=== PATIENT | female | born 1970 | race Caucasian/White ===

== ENCOUNTER 2024-04-28 15:25 | Emergency (ER) | payer OTHER, SELFPAY ==
[2024-04-28 15:27] VITALS: BP 191/85; PULSE 80; RESP 18; TEMP 36.1; O2SAT 99; BMI 38.9
--- NOTE | 2024-04-28 15:48 | RAD_ITS ---
STUDY: X-RAY - LEFT HAND REASON FOR EXAM: Female, 54 years old. PAIN TECHNIQUE: 3 view(s) of the hand. COMPARISON: None. FINDINGS: Normal radiocarpal articulation. Normal distal radioulnar joint. Normal visualized carpal bones. Normal carpal articulations Mild degenerative changes of the carpometacarpal articulation of the thumb. Normal second through fifth carpometacarpal joints. Normal metacarpi. Normal metacarpophalangeal joint of the thumb. Degenerative changes of the interphalangeal joint of the thumb. Normal proximal and distal phalanges of the thumb. Normal metacarpophalangeal joints of the second through fifth fingers. Normal proximal interphalangeal joints of the second through fifth fingers . Mild degenerative changes of the DIP joints. Normal phalanges of the second through fifth fingers. The soft tissue structures are unremarkable. RAD/Hand Min 3 Views IMPRESSION: Degenerative changes. No acute fracture or dislocation. Electronically Signed: Tylor Reyes MD at 16:12 EST ,
--- NOTE | 2024-04-28 16:27 | ED.RN ---
PT COLLIDED WITH WHEN TRYING TO MOVE THEIR LARGE DOG. INJURY HAPPENED AROUND 0730 THS MORNING. PAIN HAS BEEN GETTING WORSE. SENSATION IN TACT, PT CAN MOVE FINGERS, CAP REFILL <3 SEC
--- NOTE | 2024-04-28 16:29 | EX.ED.UPPERE ---
HPI History of Present Illness Chief Complaint: Upper Extremity Injury [facility] Home Medications ?Medication ?Instructions ?Recorded ?Last Taken ?Type atorvastatin 10 mg tablet 10 mg PO DAILY 04/28/24 Unknown History hydrochlorothiazide 12.5 mg tablet 12.5 mg PO DAILY 04/28/24 Unknown History levothyroxine 125 mcg tablet 125 mcg PO DAILY 04/28/24 04/27/24 History (Euthyrox) Allergy/AdvReac Type Severity Reaction Status Date / Time ciprofloxacin (From Cipro) Allergy Intermediate Swelling Verified 04/28/24 16:30 Penicillins Allergy Mild Hives Verified 04/28/24 16:30 Surgical History (Updated 04/28/24 @ 16:29 by Lo Quevedo) History of tonsillectomy H/O: hysterectomy Social History Smoking Status: Current every day smoker tobacco type: cigarettes EXAM Physical Exam Const Vital Signs: 04/28/24 15:27 Temperature 97 F L Temperature Source Temporal Pulse Rate 80 Respiratory Rate 18 Blood Pressure 191/85 H Blood Pressure Mean 120 Pulse Ox 99 Oxygen Delivery Method Room Air MDM MDM MDM Narrative Medical decision making narrative: HISTORY OF PRESENT ILLNESS: 54-year-old female presents with left hand injury. States she collided hands with her . This happened 3 hours prior to arrival. Notes they were trying to get the dog off the bed. Her reached out and she was at same time and collided hands. REVIEW OF SYSTEMS: Pertinent positives: Left hand pain Pertinent negatives: Numbness tingling or loss of sensation PHYSICAL EXAM: Nursing triage notes reviewed, Vital signs reviewed Extremities: No edema Neuro: Intact 5/5 strength with ok sign (median), intact finger abduction (ulnar) intact wrist extension (radial n). Intact sensation in the radial, ulnar, and median nerve distributions. Skin: No rash or lesions noted, no signs of open fracture, bruising, cellulitis MEDICAL DECISION MAKING: Chief Complaint: Left hand pain External records reviewed: Reviewed prior imaging studies Factors affecting care: none Social determinants of health: none History obtained from others: none Consults: none MDM Narrative: Patient was initially hypertensive with blood pressure 191/85 otherwise afebrile nontoxic-appearing. Left upper extremity neurovascular intact I considered the following differential diagnosis: Left hand fracture, dislocation, contusion ALL IMAGES (IF OBTAINED) HAVE BEEN PERSONALLY REVIEWED AND INTERPRETED BY MYSELF. X-ray of left hand was read reviewed personally myself and showed no acute fracture dislocation. Radiology agrees my interpretation I suspect the patient is having hand contusion. She has no snuffbox tenderness suggest occult scaphoid fracture. No need for splinting. Discussed Tylenol ibuprofen. Discussed PCP follow-up. The patient and/or family, caregivers express understanding. The patient and/or family, caregivers agrees with the plan. Shared decision making: I will have a discussion with the patient and or visitors regarding risk/benefits of further testing or admission. They will be made aware of of the risk/benefits inherent in this decision they will be given the opportunity to voice understanding. Total critical care time today provided was at least 0 [minutes. This excludes separately billable procedures. Critical care time (if documented) is secondary to the patient having high probability of clinically significant/life threatening deterioration in the patient's condition which required my urgent intervention. Impression: 1. Acute hand pain 2. Hand contusion Dispo: Discharge This note was generated with [employer] dictation software. It may contain incorrect words, spelling, and punctuation that were not noted in review of the chart prior to signing. Radiography Diagnostic Testing: Clinical Impression(s) from Imaging Studies Hand X-Ray 04/28/24 15:48 IMPRESSION: Degenerative changes. No acute fracture or dislocation. Electronically Signed: Tylor Reyes MD at 16:12 EST Reading Location ID and State: [address] [place] [address] Tel , Service support , Discharge Plan Triage Chief Complaint: Upper Extremity Injury ED Provider: [place] Dx/Rx/DC Orders Clinical Impression: Contusion of hand Instructions: ED Contusion, Upper Extremity Prescriptions: No Action levothyroxine [Euthyrox] 125 mcg tablet 125 mcg PO DAILY hydrochlorothiazide 12.5 mg tablet 12.5 mg PO DAILY atorvastatin 10 mg tablet 10 mg PO DAILY Primary Care Provider: Care Physician,No Primary Referrals: Clint Sorensen MD [Med Staff - [employer]] - Activity Restrictions/Additional Instructions: Thank you for trusting us with your care today! The x-ray of your left hand was negative for acute bony injury. Please take Tylenol (2 pills, 650 mg), ibuprofen (2 pills, 400 mg) every 6 hours as needed for pain and fever control. Please return to the emergency department if your symptoms change or worsen. Please follow with your primary care physician for further outpatient evaluation and management. Print Language: Turkmen Disposition Disposition: Home, Self Care Discharge Date/Time: 04/28/24 17:01
--- NOTE | 2024-04-28 16:33 | ED.RN ---
THIS NURSE WAS ABLE TO ADD A FEW MEDICATIONS OFF THE PTS MEMORY, BUT SHE WAS UNABLE TO REMEMBER HER MEDS. NO EXTERNAL LIST PRESENT.
[2024-04-28 16:41] VITALS: BP 169/85; PULSE 77; RESP 18; TEMP 36.1; O2SAT 99
== END 2024-04-28 17:01 | disposition home or self-care (01) ==
LOC: ED 16:56
PROVIDERS: Emergency Provider Emergency Medicine; Referring Provider Emergency Medicine; Visit Provider Emergency Medicine
DX: S60.222A Contusion of left hand, initial encounter (principal); F17.210 Nicotine dependence, cigarettes, uncomplicated; Z90.710 Acquired absence of both cervix and uterus; W50.0XXA Accidental hit or strike by another person, initial encounter; Y93.89 Activity, other specified
CPT/HCPCS: 73130; 99282

== ENCOUNTER 2024-10-18 23:20 | Emergency (ER) | payer OTHER, SELFPAY ==
--- NOTE | 2024-10-18 00:20 | RAD_ITS ---
PROCEDURE: CHEST PA AND LATERAL 10/19/2024 REASON FOR EXAM: COUGH TECHNIQUE: CHEST PA AND LATERAL COMPARISON: No FINDINGS: Normal heart size. Well inflated lungs. No consolidation, effusion, or pneumothorax. RAD/Chest PA and Lateral IMPRESSION: No acute chest findings. Reading Location: [place] [id number]
[2024-10-18 23:21] VITALS: BP 215/85; PULSE 81; RESP 18; TEMP 36.7; O2SAT 98; BMI 39.9
[2024-10-19 00:11] VITALS: BP 169/74; PULSE 74; RESP 19; TEMP 36.9; O2SAT 95
[2024-10-19 00:26] LABS: Hematocrit 43.4 % (37-47); Hemoglobin 14.9 g/dL (12.0-15.0); Immature Granulocytes Count 0.030 X10^3/uL (0.0-0.0); Mean Corp Hgb Conc 34.3 g/dL (32-36); Mean Corpuscular Volume 91.6 fL (81-99); Mean Platelet Vol. 9.6 fl (6.2-12.0); NRBC Flagged by Analyzer 0 % (0-5); Platelet Count 248 K/mm3 (150-450); RBC Distribution Width CV 13.6 % (11.6-14.6); RBC Distribution Width SD 45.8 fl (35.1-43.9); Red Blood Count 4.74 M/mm3 (4.2-5.4); White Blood Count 9.1 K/mm3 (4.4-11.0)
[2024-10-19 00:51] LABS: Magnesium 2.1 mg/dL (1.5-2.2); Pro- Brain NATRIURETIC PEPTIDE 60 pg/mL (<=900); Procalcitonin 0.07 ng/mL (<=0.10)
[2024-10-19 00:57] LABS: AST(SGOT) 43 U/L (<=31); Alanine Aminotransfer ALT/SGPT 49 U/L (<=34); Albumin, Serum 4.1 g/dL (3.5-5.0); Alkaline Phosphatase 80 U/L (35-104); Anion Gap 12 (5-15); BUN 18 mg/dL (4-19); BUN/Creat Ratio 19.1 RATIO (10-20); Bilirubin, Direct < 0.08 mg/dL (0.00-0.30); Calcium,Total 9.3 mg/dL (7.6-11.0); Carbon Dioxide 23.4 mmol/L (21.0-32.0); Chloride 102 mmol/L (98-108); Estimated Creatinine Clearance 80.87 ml/min (50-250); Globulin 3.2 g/dL (2.2-4.2); Glucose 109 mg/dL (70-99); Potassium 4.2 mmol/L (3.3-5.1)
--- OUTSIDE RECORDS SUMMARY | 2024-10-19 00:58 | XMS RPT_ITS | CCD ---
Author Organization [facility] Inform ion Partnership [facility] Care Team Providers Care Rn Circulating Name Role Phone Trev Sampson MD Primary Care Provider HELEN MANZANO Attending Unavaila JOSÉ MIGUEL Melendez Attending Unavailable Trev Sampson MD Primary Care Provider Trev Sampson MD Primary Care Provider [phone] Raul Hutchison Unavailable [place] Referring Unavailable [place] Attending Unavailable Care Physician, No Primary Primary Care Unava ilable HORACIO GALEIN G Referring Unavailable SAMPSON, TREV Primary Care Unavailable SAMPSON, TREV Primary Care Unavailable NATHAN LICEA Attending Unavailable SAMPSON, TREV Primary Care Unavailable NESHEIM, ALEXIS G Attending Unavailable SAMPSON, TREV Primary Care Unavailable LINDSEY MALCOLM Attending Unavailable MARGARITA CORBIN Attending Unavailable MUDRASHER BRADNON Referring Unavailable SAMPSON, TREV Primary Care Unavailable SAMPSON TREV Attending Unavailable SAMPSON, TREV Primary Care Unavailable SAMPSON TREV Attending Unavailable SAMPSON, TREV Primary Care Unavailable Allergies Allergy Classification Reported Allergen(s) Allergy Type Date of Onset Reaction(s) Facility Penicillins (antibiotic) (1 source) Penicillins Drug Allergy 08-08-19 [facility] Quinolones (antibiotic) (1 source) Ciprofloxacin Drug Allergy 07-21-19 15 Itching, Swelling [facility] (20 sources) Ciprofloxacin; Translations: [CIPROFLOXACIN] Drug Allergy 07-21-19 15 Itching, Swelling [facility] (20 sources) Penicillins; Translations: [PENICILLINS] Drug Intolerance 08-08-19 [facility] (1 source) Ciprofloxacin Drug Allergy 04-28-19 [facility] (1 source) Penicillins Drug allergy (disorder) 04-28-19 [facility] Medications Current Medications Medication Drug Class(es) Dates Sig (Normalized) Sig (Original) acetaminophen 325 mg oral tablet (4 sources) Start: 09-01-2023 Acetaminophen 325 mg oral tablet acetaminophen 325 mg / butalbital 50 mg / caffeine 40 mg oral tablet (7 sources) Barbiturate, Central Nervous System Stimulant, Methylxanthine Start: 08-01-2023 End: 08-05-2023 take 1 tablet by mouth every eight hours as needed for headache butalbital-acetami nophen-caffeine 50-325-40 MG tablet Take 1 tablet by mouth every 8 hours as needed for headaches for up to 4 days. 12 tablet 0 08/01/2023 08/05/2023 Active [id number] 200 actuat albuterol 0.09 mg/actuat metered dose inhaler (20 sources) beta2-Adrenergic Agonist Start: 10-16-2022 End: 07-30-2023 take 2 puff(s) by inhalation every six hours as needed for wheezing albuterol 108 (90 Base) MCG/ACT inhaler Indications: Non-seasonal allergic rhinitis due to other allergic trigger Inhale 2 Puffs as instructed every 6 hours as needed for wheezing/shortness of breath. With spacer 18 g 3 07/30/2023 Active Start: 06-28-2022 End: 10-16-2022 take 2 puff(s) by inhalation every six hours as needed for wheezing albuterol 108 (90 Base) MCG/ACT inhaler Inhale 2 Puffs as instructed every 6 hours as needed for wheezing/shortness of breath. With spacer 0 06/28/2022 10/16/2022 Discontinued (Reorder) atorvastatin 40 mg oral tablet (20 sources) HMG-CoA Reductase Inhibitor Start: 08-01-2023 End: 08-04-2024 take 1 tablet by mouth once daily atorvastatin (Lipitor) 40 MG tablet Indications: Mixed hyperlipidemia TAKE 1 TABLET BY MOUTH DAILY 90 tablet 08/04/2024 Active Start: 07-20-2022 End: 06-28-2024 take 1 tablet by mouth once daily atorvastatin (Lipitor) 20 MG tablet Indications: Mixed hyperlipidemia Take 1 tablet (20 mg) by mouth daily. 90 tablet 0 06/29/2023 08/01/2023 Discontinued (Reorder) cephalexin 500 mg oral capsule (3 sources) Cephalosporin Antibacterial Start: 09-15-2024 End: 09-22-2024 take 1 capsule by mouth four times daily cephalexin (Keflex) 500 MG capsule Take 1 capsule (500 mg) by mouth 4 times daily for 7 days. 28 capsule 09/15/2024 09/22/2024 Active Start: 03-03-2024 End: 03-08-2024 take 1 capsule by mouth twice daily cephalexin (Keflex) 500 MG capsule Indications: Cellulitis of right hand Take 1 capsule (500 mg) by mouth 2 times daily for 5 days. 10 capsule 03/03/2024 03/08/2024 Active fluticasone propionate 0.05 mg/actuat metered dose nasal spray (20 sources) Corticosteroid Start: 10-16-2022 End: 10-16-2023 take 2 spray(s) nasal route once daily fluticasone (Flonase) 50 MCG/ACT nasal spray Indications: Allergy, initial encounter Administer 2 sprays into each nostril daily. Shake gently. Before first use, prime pump. After use, clean tip and replace cap. 16 g 11 10/16/2022 Active hydroCHLOROthiazide 12.5 mg oral tablet (15 sources) Thiazide Diuretic Start: 11-16-2023 End: 11-15-2024 take 1 tablet by mouth once daily hydroCHLOROthiazide 12.5 MG tablet Take 1 tablet (12.5 mg) by mouth daily. 90 tablet 3 11/16/2023 11/15/2024 Active levothyroxine sodium 0.1 mg oral tablet (20 sources) l-Thyroxine Start: 05-30-2023 End: 09-02-2023 take 1 tablet by mouth once daily levothyroxine (Synthroid, Levoxyl) 100 MCG tablet Indications: Acquired hypothyroidism TAKE 1 TABLET BY MOUTH DAILY 90 tablet 1 09/02/2023 Active Start: 11-03-2022 End: 04-18-2023 take 1 tablet by mouth once daily levothyroxine (Synthroid, Levoxyl) 100 MCG tablet Indications: Acquired hypothyroidism Take 1 tablet (100 mcg) by mouth daily. 90 tablet 0 01/18/2023 04/18/2023 Active Start: 09-07-2022 End: 12-06-2022 take 1 tablet by mouth once daily levothyroxine (Synthroid, Levoxyl) 75 MCG tablet Indications: Acquired hypothyroidism Take 1 tablet (75 mcg) by mouth daily. 90 tablet 0 09/07/2022 12/06/2022 Active Start: 07-20-2022 End: 09-07-2022 take 1 tablet by mouth once daily levothyroxine (Synthroid, Levoxyl) 50 MCG tablet Indications: Acquired hypothyroidism Take 1 tablet (50 mcg) by mouth daily. 90 tablet 0 07/20/2022 09/07/2022 Discontinued (Reorder) loratadine 10 mg oral tablet (2 sources) Start: 09-15-2024 End: 10-05-2024 take 1 tablet by mouth once daily loratadine (Claritin) 10 MG tablet Take 1 tablet (10 mg) by mouth daily for 20 days. 20 tablet 09/15/2024 10/05/2024 Active meclizine hydrochloride 25 mg oral tablet (20 sources) Antiemetic Start: 10-09-2022 End: 03-03-2024 take 1 tablet by mouth twice daily as needed for dizziness meclizine (Antivert) 25 MG tablet Indications: Vertigo TAKE 1 TABLET BY MOUTH TWICE DAILY NEEDED for dizziness/vertigo 30 tablet 3 03/03/2024 Active 24 hr metFORMIN hydrochloride 500 mg extended release oral tablet (20 sources) Biguanide Start: 08-01-2023 End: 08-04-2024 take 1 tablet by mouth once daily at breakfast metFORMIN XR (Glucophage-XR) 500 MG 24 hr tablet Indications: Impaired fasting glucose TAKE 1 TABLET BY MOUTH DAILY WITH BREAKFAST DO NOT CRUSH, CHEW, OR SPLIT 90 tablet 08/04/2024 Active methocarbamol 500 mg oral tablet (7 sources) Muscle Relaxant Start: 03-24-2024 End: 04-03-2024 take 1 tablet by mouth twice daily methocarbamol (Robaxin) 500 MG tablet Take 1 tablet (500 mg) by mouth 2 times daily for 10 days. 20 tablet 03/24/2024 Active metoprolol tartrate 50 mg oral tablet (19 sources) beta-Adrenergic Patricia Start: 09-21-2023 End: 09-20-2024 take 60-70 tablets by mouth every hour, then take 1 tablet by mouth every hour metoprolol tartrate (Lopressor) 50 MG tablet Indications: Atypical chest pain , Shortness of breath Take 2 tablets (100 mg) by mouth See administration instructions for 2 doses. Check your HR the evening before your test and if HR >70 take a 2 tablets, If HR is between 60-70 then take 1 tab, If HR is 4 tablet 09/21/2023 09/20/2024 Active montelukast 10 mg oral tablet (20 sources) Leukotriene Receptor Antagonist Start: 10-16-2022 End: 08-04-2024 take 1 tablet by mouth once daily montelukast (Singulair) 10 MG tablet Indications: Non-seasonal allergic rhinitis due to other allergic trigger , Mild intermittent asthma without complication TAKE 1 TABLET BY MOUTH EVERY night 90 tablet 08/04/2024 Active Completed/Discontinued Medications Medication Drug Class(es) Dates Sig (Normalized) Sig (Original) hydroCHLOROthiazide 12.5 mg / lisinopril 10 mg oral tablet (20 sources) Thiazide Diuretic, Angiotensin Converting Enzyme Inhibitor Start: 3 End: 5 take 2 tablets by mouth in the morning lisinopril-hydroC HLOROthiazide 10-12.5 MG tablet Indications: Primary hypertension Take 2 tablets by mouth in the morning. 180 tablet 3 07/30/2023 11/16/2023 Discontinued 1 ml ketorolac tromethamine 15 mg/ml cartridge (2 sources) Nonsteroidal Anti-inflammatory Drug, Cyclooxygenase Inhibitor Start: 4 End: 4 inject 15 mg by intramuscular injection once 15 mg, IntraMUSCular, Once, On Wed03/24/24 at 0050, For 1 dose meloxicam 7.5 mg oral tablet (2 sources) Nonsteroidal Anti-inflammatory Drug Start: 5 End: 5 take 7.5 mg by mouth once 7.5 mg, Oral, Once, On Wed09/15/24 at 1205, For 1 dose metroNIDAZOLE 500 mg oral tablet (5 sources) Nitroimidazole Antimicrobial Start: 3 End: 4 take 1 tablet by mouth three times daily metroNIDAZOLE (Flagyl) 500 MG tablet TAKE 1 TABLET BY MOUTH THREE TIMES DAILY FOR 7 DAYS 0 10/09/2022 07/30/2023 Discontinued (Med list cleanup) 2 ml ondansetron 2 mg/ml injection (2 sources) Serotonin-3 Receptor Antagonist Start: 4 End: 4 ondansetron (Zofran) injection 4 mg predniSONE 20 mg oral tablet (2 sources) Start: 5 End: 5 take 2 tablets by mouth once daily predniSONE (Deltasone) 20 MG tablet Take 2 tablets (40 mg) by mouth daily for 7 days. 14 tablet 09/15/2024 09/15/2024 Discontinued 50 ml sodium chloride 9 mg/ml injection (2 sources) Start: 4 End: 4 sodium chloride 0.9 % bolus 500 mL sulfamethoxazole 800 mg / trimethoprim 160 mg oral tablet (5 sources) Dihydrofolate Reductase Inhibitor Antibacterial, Sulfonamide Antimicrobial Start: 3 End: 4 take 1 tablet by mouth twice daily sulfamethoxazole- trimethoprim (Bactrim DS) 800-160 MG tablet Take 1 tablet by mouth 2 times daily. 0 10/09/2022 07/30/2023 Discontinued (Med list cleanup) Problems Active Problems Problem Classification Problem Date Documented Da te Episodic/Chronic Allergic reactions (1 source) Allergic condition; Translations: [Allergy, unspecified, initial encounter] 10-16-2022 Episodic Asthma (20 sources) Mild intermittent asthma; Translations: [Mild intermittent asthma, uncomplicated] Onset: 09-11-2015 10-16-2022 Chronic Complications of surgical procedures or medical care (20 sources) Postablative hypothyroidism; Translations: [Postprocedural hypothyroidism] Onset: 06-28-2015 10-16-2022 Chronic Diabetes mellitus without complication (2 sources) Impaired fasting glycemia; Translations: [Impaired fasting glucose] 08-01-2023 Episodic Disorders of lipid metabolism (20 sources) Hyperlipidemia; Translations: [Hyperlipidemia, unspecified] Onset: 06-28-2015 10-16-2022 Chronic Essential hypertension (20 sources) Essential hypertension; Translations: [Essential (primary) hypertension] Onset: 06-28-2015 Chronic Headache; including migraine (2 sources) Tension-type headache; Translations: [Tension-type headache, unspecified, not intractable] 08-01-2023 Chronic Malaise and fatigue (2 sources) Fatigue; Translations: [Other fatigue] 08-01-2023 Episodic Nutritional deficiencies (20 sources) Vitamin D deficiency; Translations: [Vitamin D deficiency, unspecified] Onset: 06-28-2015 10-16-2022 Chronic Other connective tissue disease (4 sources) Swelling of lower limb; Translations: [Other specified soft tissue disorders] 03-24-2024 Episodic Other gastrointestinal disorders (1 source) Abdominal bloating; Translations: [Abdominal distension (gaseous)] 07-30-2023 Episodic Other injuries and conditions due to external causes (8 sources) Unspecified injury of head, initial encounter; Translations: [Unspecified injury of head, initial encounter] Onset: 09-01-2023 Episodic Other non-traumatic joint disorders (2 sources) Pain in elbow; Translations: [Pain in right elbow] 12-17-2023 Episodic Other nutritional; endocrine; and metabolic disorders (20 sources) Obesity; Translations: [Other obesity due to excess calories] Onset: 06-28-2015 Chronic Other nutritional; endocrine; and metabolic disorders (1 source) Obesity caused by energy imbalance; Translations: [Other obesity due to excess calories] 07-30-2023 Chronic Other screening for suspected conditions (not mental disorders or infectious disease) (5 sources) Patient encounter status; Translations: [Encounter for screening for diabetes mellitus] Episodic Other upper respiratory disease (2 sources) Allergic rhinitis; Translations: [Other allergic rhinitis] 07-30-2023 Chronic Skin and subcutaneous tissue infections (7 sources) Cellulitis of right hand; Translations: [Cellulitis of right upper limb] Onset: 03-03-2024 03-03-2024 Episodic Spondylosis; intervertebral disc disorders; other back problems (2 sources) Chronic low back pain; Translations: [Lumbago with sciatica, right side] 07-30-2023 Episodic Substance-related disorders (6 sources) Nicotine dependence; Translations: [Nicotine dependence, cigarettes, uncomplicated] Onset: 03-03-2024 Chronic Superficial injury; contusion (1 source) Contusion of left hand, initial encounter; Translations: [Contusion of left hand, initial encounter] Onset: 05-19-2024 Episodic Thyroid disorders (6 sources) Acquired hypothyroidism; Translations: [Hypothyroidism, unspecified] Chronic Unclassified (1 source) right ear pain and right jaw popping Onset: 10-09-2022 Unclassified (1 source) Acute left-sided low back pain without sciatica; Translations: [Acute left-sided low back pain without sciatica] Onset: 12-26-2021 Past or Other Problems Problem Classification Problem Date Documented Date Episodic/Chronic Abdominal pain (1 source) Left lower quadrant pain; Translations: [LLQ abdominal pain] Onset: 12-26-2021 Episodic Conditions associated with dizziness or vertigo (4 sources) Vertigo; Translations: [Dizziness and giddiness] Onset: 03-03-2024 07-30-2023 Episodic Nonspecific chest pain (7 sources) Chest pain; Translations: [Chest pain, unspecified] Onset: 09-21-2023 07-30-2023 Episodic Other connective tissue disease (2 sources) Other specified soft tissue disorders; Translations: [Other specified soft tissue disorders] Onset: 03-23-2024 Episodic Other diseases of veins and lymphatics (20 sources) Venous insufficiency of leg; Translations: [Venous insufficiency (chronic) (peripheral)] Onset: 07-14-2022 Episodic Other injuries and conditions due to external causes (3 sources) Blister; Translations: [Other injury of unspecified body region, initial encounter] Onset: 11-16-2023 11-18-2023 Episodic Other lower respiratory disease (3 sources) Snoring; Translations: [Snoring] Onset: 09-21-2023 09-21-2023 Episodic Other lower respiratory disease (3 sources) Dyspnea; Translations: [Shortness of breath] Onset: 09-21-2023 09-21-2023 Episodic Other lower respiratory disease (1 source) Snoring; Translations: [Snoring] Onset: 09-21-2023 Episodic Other lower respiratory disease (1 source) Shortness of breath; Translations: [Shortness of breath] Onset: 09-21-2023 Episodic Other non-traumatic joint disorders (2 sources) Pain in right elbow; Translations: [Pain in right elbow] Onset: 12-17-2023 Episodic Other skin disorders (20 sources) Vitiligo; Translations: [Vitiligo] Onset: 10-30-2016 10-16-2022 Episodic Residual codes; unclassified (1 source) Edema, unspecified; Translations: [Peripheral edema] Onset: 06-27-2022 Episodic Results Test Name Value Interpretation Reference Range Facility ED Nursing Noteon 09-15-2024 ED Nursing Note Pt ambulatory to [place] [id number] with c/o bilateral lower leg redness, warmth and itching x 2 weeks. Pt states has been developing small blisters developing but not weeping and has concern of cellulitis. Reports increase pain with palpation to area. Normal [facility] ED Provider Noteon ED Provider Note EMERGENCY DEPARTMENT ENCOUNTER Pt Name: Kaylynn Durán Birthdate 1970 Date of evaluation: 09/15/2024 CHIEF COMPLAINT Chief Complaint Patient presents with Skin Problem HISTORY OF PRESENT ILLNESS HPI Kaylynn Durán is a 54 y.o. female who presents to the emergency department with skin redness in both legs, right more than left swelling both legs. Severe itching. Blistering of the right leg. Symptoms of redness and itching started 2 weeks ago. Has chronic swelling in both legs. REVIEW OF SYSTEMS Review of Systems Problem List[1] CURRENT MEDICATIONS Previous Medications ALBUTEROL 108 (90 BASE) MCG/ACT INHALER Inhale 2 Puffs as instructed every 6 hours as needed for wheezing/shortness of breath. With spacer ATORVASTATIN (LIPITOR) 40 MG TABLET TAKE 1 TABLET BY MOUTH DAILY FLUTICASONE (FLONASE) 50 MCG/ACT NASAL SPRAY Administer 2 sprays into each nostril daily. Shake gently. Before first use, prime pump. After use, clean tip and replace cap. HYDROCHLOROTHIAZIDE 12.5 MG TABLET Take 1 tablet (12.5 mg) by mouth daily. LEVOTHYROXINE (SYNTHROID, LEVOXYL) 100 MCG TABLET TAKE 1 TABLET BY MOUTH DAILY MECLIZINE (ANTIVERT) 25 MG TABLET TAKE 1 TABLET BY MOUTH TWICE DAILY NEEDED for dizziness/vertigo METFORMIN XR (GLUCOPHAGE-XR) 500 MG 24 HR TABLET TAKE 1 TABLET BY MOUTH DAILY WITH BREAKFAST DO NOT CRUSH, CHEW, OR SPLIT METHOCARBAMOL (ROBAXIN) 500 MG TABLET Take 1 tablet (500 mg) by mouth 2 times daily for 10 days. METOPROLOL TARTRATE (LOPRESSOR) 50 MG TABLET Take 2 tablets (100 mg) by mouth See administration instructions for 2 doses. Check your HR the evening before your test and if HR >70 take a 2 tablets, If HR is between 60-70 then take 1 tab, If HR is <60 do not take any. Repeat 2 hours before your test. MONTELUKAST (SINGULAIR) 10 MG TABLET TAKE 1 TABLET BY MOUTH EVERY night ALLERGIES Ciprofloxacin and Penicillins SOCIAL HISTORY Social History[2] PHYSICAL EXAM Vitals: 09/15/24 1151 09/15/24 1152 BP: (!) 187/95 BP Location: Right arm Patient Position: Lying Pulse: 86 69 Resp: 16 16 Temp: 36.2 ?C (97.1 ?F) TempSrc: Oral SpO2: 99% 100% Weight: 95.3 kg (210 lb) Height: 1.575 m (5' 2) Physical Exam Vitals and nursing note reviewed. Constitutional: Appearance: She is obese. She is not toxic-appearing. Cardiovascular: Rate and Rhythm: Normal rate and regular rhythm. Pulses: Dorsalis pedis pulses are 2+ on the right side and 2+ on the left side. Posterior tibial pulses are 2+ on the right side and 2+ on the left side. Musculoskeletal: Right lower leg: Swelling and tenderness present. Left lower leg: Swelling and tenderness present. Right ankle: Swelling present. Left ankle: Swelling present. Right foot: No tenderness. Left foot: No tenderness. Comments: Soft compartments, no crepitus. Skin: General: Skin is warm. Capillary Refill: Capillary refill takes less than 2 seconds. Coloration: Skin is not cyanotic. Findings: Erythema, lesion and rash present. No abscess. Rash is vesicular (right laterl leg.). Neurological: Mental Status: She is alert. Sensory: Sensation is intact. Motor: Motor function is intact. Gait: Gait is intact. Deep Tendon Reflexes: Reflexes are normal and symmetric. Psychiatric: Behavior: Behavior normal. Thought Content: Thought content normal. SCREENINGS Syed Coma Scale Best Eye Response: Spontaneous Best Verbal Response: Oriented Best Motor Response: Follows commands Syed Coma Scale Score: 15 Medical decision making DIAGNOSTIC RESULTS Procedures/EKG: Physician EKG interpretation can be found in [facility] if done Radiologist results reviewed: No orders to display LABS: Labs Reviewed - No data to display RADIOLOGY : Medications ordered: Medications meloxicam (Mobic) tablet 7.5 mg (7.5 mg Oral Given 09/15/24 1206) ED Course as of 09/15/24 1216 WedSep 15, 2024 121 Prior medical records were reviewed: oarrs reviewed no recent controlled substance prescription [NM] ED Course User Index [NM] Nathan Licea MD Diagnoses as of 09/15/24 1216 Cellulitis of right lower extremity Hypertension, unspecified type * No order type specified * Our workup consisted of ordering/reviewing: No orders of the defined types were placed in this encounter. MDM: 54 y.o. presented with leg redness and swelling. The differential diagnosis considered: Cellulitis, rash,. Patient's care was impacted by comorbidity of Hypertension and she is not able to take [id number] high-dose anti-inflammatory to help with the inflammation and swelling. Will trial low-dose. Diagnostic tests considered but not performed: Vascular ultrasound lower extremity venous duplex. Clinically not DVT. There is no tenderness along the deep venous system and swelling is chronic. Mainly skin symptoms Consideration for escalation of care with: meds ancef IV, not septic, hence not ordered . (more content not included)... Normal [facility] 05-29-2024 36 See Proxiblet message [facility] 05-23-2024 36 She is due for repea t that is in the computer ordered by Elly. Normal [facility] Emergency Department Summary on 04-28-2024 Emergency Department Summary [facility] Medical Records Department [address] [place] [id number] Emergency Department Summary 04/28/24 MR#: [id number] Acct: [id number] Name: KAYLYNN DURÁN Rep #: [id number] : 1970 54 From: [place] DO PCP: Care Physician,No Primary Status:DEP ER Location: ED HPI History of Present Illness Chief Complaint: Upper Extremity Injury PFSH PFSH Home Medications ???Medication ???Instructions ???Recorded ???Last Taken ???Type atorvastatin 10 mg tablet 10 mg PO DAILY 04/28/24 Unknown History hydrochlorothiazide 12.5 mg tablet 12.5 mg PO DAILY 04/28/24 Unknown History levothyroxine 125 mcg tablet 125 mcg PO DAILY 04/28/24 04/27/24 History (Euthyrox) Allergy/AdvReac Type Severity Reaction Status Date / Time ciprofloxacin (From Cipro) Allergy Intermediate Swelling Verified 04/28/24 16:30 Penicillins Allergy Mild Hives Verified 04/28/24 16:30 Surgical History (Updated 04/28/24 @ 16:29 by Lo Quevedo) History of tonsillectomy H/O: hysterectomy Social History Smoking Status: Current every day smoker tobacco type: cigarettes EXAM Physical Exam Const Vital Signs: 04/28/24 15:27 Temperature 97 F L Temperature Source Temporal Pulse Rate 80 Respiratory Rate 18 Blood Pressure 191/85 H Blood Pressure Mean 120 Pulse Ox 99 Oxygen Delivery Method Room Air MDM MDM MDM Narrative Medical decision making narrative: HISTORY OF PRESENT ILLNESS: 54-year-old female presents with left hand injury. States she collided hands with her . This happened 3 hours prior to arrival. Notes they were trying to get the dog off the bed. Her reached out and she was at same time and collided hands. REVIEW OF SYSTEMS: Pertinent positives: Left hand pain Pertinent negatives: Numbness tingling or loss of sensation PHYSICAL EXAM: Nursing triage notes reviewed, Vital signs reviewed Extremities: No edema Neuro: Intact 5/5 strength with ok sign (median), intact finger abduction (ulnar) intact wrist extension (radial n). Intact sensation in the radial, ulnar, and median nerve distributions. Skin: No rash or lesions noted, no signs of open fracture, bruising, cellulitis MEDICAL DECISION MAKING: Chief Complaint: Left hand pain External records reviewed: Reviewed prior imaging studies Factors affecting care: none Social determinants of health: none History obtained from others: none Consults: none [facility] Narrative: Patient was initially hypertensive with blood pressure 191/85 otherwise afebrile nontoxic-appearing. Left upper extremity neurovascular intact I considered the following differential diagnosis: Left hand fracture, dislocation, contusion ALL IMAGES (IF OBTAINED) HAVE BEEN PERSONALLY REVIEWED AND INTERPRETED BY MYSELF. X-ray of left hand was read reviewed personally myself and showed no acute fracture dislocation. Radiology agrees my interpretation I suspect the patient is having hand contusion. She has no snuffbox tenderness suggest occult scaphoid fracture. No need for splinting. Discussed Tylenol ibuprofen. Discussed PCP follow-up. The patient and/or family, caregivers express understanding. The patient and/or family, caregivers agrees with the plan. Shared decision making: I will have a discussion with the patient and or visitors regarding risk/benefits of further testing or admission. They will be made aware of of the risk/benefits inherent in this decision they will be given the opportunity to voice understanding. Total critical care time today provided was at least 0 [minutes. This excludes separately billable procedures. Critical care time (if documented) is secondary to the patient having high probability of clinically significant/life threatening deterioration in the patient's condition which required my urgent intervention. Impression: 1. Acute hand pain 2. Hand contusion Dispo: Discharge This note was generated with Tricent[employer] dictation software. It may contain incorrect words, spelling, and punctuation that were not noted in review of the chart prior to signing. Radiography Diagnostic Testing: Clinical Impression(s) from Imaging Studies Hand X-Ray 04/28/24 15:48 IMPRESSION: Degenerative changes. No acute fracture or dislocation. Electronically Signed: Tylor Reyes MD at 16:12 EST Reading Location ID and State: [facility] / [place] Tel , Service support , Discharge Plan Triage Chief Complaint: Upper Extremity Injury ED Provider: [place] Dx/Rx/DC Orders Clinical Impression: Contusion of hand Instructions: ED Contusion, Upper Extremity Prescriptions: No Action levothyroxine [Euthyrox] 125 mcg tablet 125 mcg PO DAILY hydrochl (more content not included)... Normal [facility] Hand Min 3 Viewson 5 Hand Min 3 Views [facility] Imaging Services [address], [place] [id number] Hand Min 3 Views MR#: [id number] Acct: [id number] Name: KAYLYNN DURÁN Rep #: [id number] : 1970 F 54 From: Tylor Ryees MD PCP: Care Physician,No Primary Status: PRE ER Study: Hand Min 3 Views Date of Exam: 04/28/24 Exam# [id number] Ordering Dr: Franky,Garth PCheryl [id number] STUDY: X-RAY - LEFT HAND REASON FOR EXAM: Female, 54 years old. PAIN TECHNIQUE: 3 view(s) of the hand. COMPARISON: None. FINDINGS: Normal radiocarpal articulation. Normal distal radioulnar joint. Normal visualized carpal bones. Normal carpal articulations Mild degenerative changes of the carpometacarpal articulation of the thumb. Normal second through fifth carpometacarpal joints. Normal metacarpi. Normal metacarpophalangeal joint of the thumb. Degenerative changes of the interphalangeal joint of the thumb. Normal proximal and distal phalanges of the thumb. Normal metacarpophalangeal joints of the second through fifth fingers. Normal proximal interphalangeal joints of the second through fifth fingers . Mild degenerative changes of the DIP joints. Normal phalanges of the second through fifth fingers. The soft tissue structures are unremarkable. RAD/Hand Min 3 Views IMPRESSION: Degenerative changes. No acute fracture or dislocation. Electronically Signed: Tylor Reyes MD at 16:12 EST Reading Location ID and State: [address] [place] [address] Tel , Service support , CC: ED PHYSICIAN PROVIDER; No Primary Care Physician Digital Press Operator: Signed [facility] 36on 04-01-2024 36 We have been unable to reach your patient to schedule their testing. Test Name: CT Lung Screening 1st Attempt: 03/31/2024 2nd Attempt: 04/01/2024 [facility] Progress Noteon 03-27-2024 Progress Note Chart reviewed of ED follow up Seen in [facility] ED on 03/23/24 Reason: leg swelling Discharge instructions: In the medical field, there is always a level of diagnostic uncertainty, even if this uncertainty is low. For this reason, it is important to immediately return to the emergency department if you have any new symptoms, worsening symptoms, change of symptoms, or if you have any other concerns. We would be happy to re-evaluate you. Otherwise, please take your medications as prescribed and follow-up as recommended. Unable to reach by phone. Patient is active on [employer]. ED message sent via [employer] [facility] ED Nursing Noteon 03-23-2024 ED Nursing Note Pt ambulatory to [facility] with complaints of left leg swelling, pain and numbness and tingling that has been ongoing since Wednesday. Pt describes the tingling as little bolts of electricity going through.Pt sts that she has some issues with swelling and is on a medication that is supposed to help with swelling. Denies injury to the leg. Normal [facility] ED Provider Noteon ED Provider Note EMERGENCY DEPARTMENT ENCOUNTER Pt Name: Beverly Durán Birthdate 1970 Date of evaluation: 03/23/2024 ED Provider: Lindsey Malcolm DO CHIEF COMPLAINT Chief Complaint Patient presents with Leg Swelling Left leg, pt sts that she normally has issues with swelling, sts it started Wednesday and has continued. Pt complains of numbness and pain in the leg. Numbness Left leg, ongoing since Wednesday. HISTORY OF PRESENT ILLNESS (Location/Symptom, Timing/Onset, Context/Setting, Quality, Duration, Modifying Factors, Severity) Note limiting factors. I wore appropriate PPE for the entirety of this encounter. HPI Beverly Durán is a 54 y.o. who presents to the emergency department with chief complaint of left lower leg edema. Patient reports that 20 years ago she had a total hysterectomy complicated with abscess formations. Since then she has been having chronic lower leg edema usually left worse than right. She reports for the last 5 days her left lower extremity has been more swollen and more full. She denies any recent travel, long plane or car rides. Denies any recent surgery. Denies any other symptoms of chest pain, shortness of breath, David pain, nausea, vomiting, diarrhea, constipation, urinary complaints. No known sick contacts. No fall. Nursing Notes were reviewed. REVIEW OF SYSTEMS Review of Systems Pertinent positives and negatives as per HPI. PAST MEDICAL HISTORY Past Medical History: Diagnosis Date Edema swelling in legs High blood pressure High cholesterol Thyroid condition underactive SURGICAL HISTORY Past Surgical History: Procedure Laterality Date GALLBLADDER SURGERY HYSTERECTOMY TONSILLECTOMY CURRENT MEDICATIONS Discharge Medication List as of 03/24/2024 12:52 AM CONTINUE these medications which have NOT CHANGED Details albuterol 108 (90 Base) MCG/ACT inhaler Inhale 2 Puffs as instructed every 6 hours as needed for wheezing/shortness of breath. With spacer, Normal atorvastatin (Lipitor) 40 MG tablet Take 1 tablet (40 mg) by mouth daily., Starting Wed08/01/2023, Until Wed07/31/2024, Normal fluticasone (Flonase) 50 MCG/ACT nasal spray Administer 2 sprays into each nostril daily. Shake gently. Before first use, prime pump. After use, clean tip and replace cap., Starting Wed10/16/2022, Until Wed03/03/2024, Normal hydroCHLOROthiazide 12.5 MG tablet Take 1 tablet (12.5 mg) by mouth daily., Starting Wed11/16/2023, Until Wed11/15/2024, Normal levothyroxine (Synthroid, Levoxyl) 100 MCG tablet TAKE 1 TABLET BY MOUTH DAILY, Starting Beatriz 09/02/2023, Normal meclizine (Antivert) 25 MG tablet TAKE 1 TABLET BY MOUTH TWICE DAILY NEEDED for dizziness/vertigo, Normal metFORMIN XR (Glucophage-XR) 500 MG 24 hr tablet Take 1 tablet (500 mg) by mouth daily (with breakfast). Do not crush, chew, or split., Starting Wed08/01/2023, Until Wed07/31/2024, Normal metoprolol tartrate (Lopressor) 50 MG tablet Take 2 tablets (100 mg) by mouth See administration instructions for 2 doses. Check your HR the evening before your test and if HR >70 take a 2 tablets, If HR is between 60-70 then take 1 tab, If HR is <60 do not take any. Repeat 2 hours before your test ., Starting Wed09/21/2023, Until Wed09/20/2024 at 2359, Normal montelukast (Singulair) 10 MG tablet Take 1 tablet (10 mg) by mouth Nightly., Starting Wed07/30/2023, Until Wed07/29/2024, Normal ALLERGIES Ciprofloxacin and Penicillins FAMILY HISTORY Family History Problem Relation Name Age of Onset Cancer Mother Other cancer Mother heart issues Heart attack Mother Flynn's palsy Mother had once No Known Problems Father Alopecia Daughter No Known Problems Daughter No Known Problems Son No Known Problems Son SOCIAL HISTORY Social History Socioeconomic History Marital status: Number of children: 4 Tobacco Use Smoking status: Every Day Current packs/day: 1.00 Average packs/day: 1 pack/day for 38.0 years (38.0 ttl pk-yrs) Types: Cigarettes Passive exposure: Current Smokeless tobacco: Never Vaping Use Vaping status: Never Used Substance and Sexual Activity Alcohol use: Not Currently Comment: does not drink Drug use: Never Sexual activity: Yes Partners: Male SCREENINGS PHYSICAL EXAM ED Triage Vitals [03/23/24 2355] Temp Heart Rate Resp BP 36.8 ?C (98.2 ?F) 76 20 (!) 161/70 SpO2 Temp Source Heart Rate Source Patient Position 95 % Oral Monitor Sitting BP Location FiO2 (%) Right arm -- General: A&O x 3, well appearing, no acute distress Head: NC/AT Eyes: Atraumatic, EOMI, clear conjunctival, PERRLA Nose: Atraumatic, no skin changes Throat: Moist mucus membranes, uvula midline, oropharynx clear Neck: atraumatic, Supple, no lymphadenopathy, no stiffness or restricted ROM Heart: Normal rate and regular rhythm, no m/r/g Lungs: CTA bilaterally, no crackles or wheezes, no respiratory distress Abd: Soft, nontender, nondistended, no g (more content not included)... Normal [facility] 37on 03-03-2024 37 Screening Colonoscop y (Screening/surveillance program) [phone] Normal [facility] Office Visiton 03-03-2024 Follow-up visit [id number] Shannan Durán cornelio 1970 F Date Provider Department Center 03/03/2024 [id number], KORY [facility] Family History Problem Relation Age of Onset Cancer Mother Other cancer Mother Comments: heart issues Heart attack Mother Flynn's palsy Mother Comments: had once No Known Problems Father Alopecia Daughter No Known Problems Daughter No Known Problems Son No Known Problems Son Family Status - Relation Status Age at Mother Alive Father Daughter Alive Daughter Alive Son Alive Son Alive Maternal Grandmother Maternal Grandfather Paternal Grandmother Paternal Grandfather Level of Service:82097 [place] OFFICE/OUTPATIENT ESTABLISHED MOD MDM 30 MIN Reason for Visit and Comments: Follow-up [166573] Med Refill [234967] Normal [facility] Progress Noteon 03-03-2024 Progress Note [facility] - [address] [facility] [address] Visit Type: Follow Up Appointment PCP: Trev Sampson MD Reason for Visit: Follow-up and Med Refill Assessment and Plan Beverly was seen today for follow-up and med refill. Diagnoses and all orders for this visit: Primary hypertension Vertigo - meclizine (Antivert) 25 MG tablet; TAKE 1 TABLET BY MOUTH TWICE DAILY NEEDED for dizziness/vertigo Mixed hyperlipidemia Cellulitis of right hand - cephalexin (Keflex) 500 MG capsule; Take 1 capsule (500 mg) by mouth 2 times daily for 5 days. Cigarette smoker - CT lung screening low dose; Future Other orders - Flu vaccine (FLUZONE/FLULAVAL/FLUAR IX), trivalent, split virus (VFC product) Will give Keflex as she has tolerated this in the past for her cellulitis. Meclizine refilled no change to her antihypertensive medications. CT lung screening ordered. No follow-ups on file. Subjective HPI Kaylynn Durán presented to the office for follow-up. Of note she has hypertension which is well-controlled on metoprolol tartrate and hydrochlorothiazide. She also notes that she has some intermittent vertigo though and has been under reasonable control. Would like a refill on meclizine. She did have a wound that appeared on her right hand that has been red and slow to heal. She questions if anything needs done. Review of Systems As noted in HPI The following portions of the chart were reviewed this encounter and updated as appropriate: Current Outpatient Medications: albuterol 108 (90 Base) MCG/ACT inhaler, Inhale 2 Puffs as instructed every 6 hours as needed for wheezing/shortness of breath. With spacer, Disp: 18 g, Rfl: 3 atorvastatin (Lipitor) 40 MG tablet, Take 1 tablet (40 mg) by mouth daily., Disp: 90 tablet, Rfl: 3 fluticasone (Flonase) 50 MCG/ACT nasal spray, Administer 2 sprays into each nostril daily. Shake gently. Before first use, prime pump. After use, clean tip and replace cap., Disp: 16 g, Rfl: 11 hydroCHLOROthiazide 12.5 MG tablet, Take 1 tablet (12.5 mg) by mouth daily., Disp: 90 tablet, Rfl: 3 levothyroxine (Synthroid, Levoxyl) 100 MCG tablet, TAKE 1 TABLET BY MOUTH DAILY, Disp: 90 tablet, Rfl: 1 metFORMIN XR (Glucophage-XR) 500 MG 24 hr tablet, Take 1 tablet (500 mg) by mouth daily (with breakfast). Do not crush, chew, or split., Disp: 90 tablet, Rfl: 3 metoprolol tartrate (Lopressor) 50 MG tablet, Take 2 tablets (100 mg) by mouth See administration instructions for 2 doses. Check your HR the evening before your test and if HR >70 take a 2 tablets, If HR is between 60-70 then take 1 tab, If HR is <60 do not take any. Repeat 2 hours before your test., Disp: 4 tablet, Rfl: 0 montelukast (Singulair) 10 MG tablet, Take 1 tablet (10 mg) by mouth Nightly., Disp: 90 tablet, Rfl: 3 cephalexin (Keflex) 500 MG capsule, Take 1 capsule (500 mg) by mouth 2 times daily for 5 days., Disp: 10 capsule, Rfl: 0 meclizine (Antivert) 25 MG tablet, TAKE 1 TABLET BY MOUTH TWICE DAILY NEEDED for dizziness/vertigo, Disp: 30 tablet, Rfl: 3 Objective BP 132/79 (BP Location: Right arm, Patient Position: Sitting, BP Cuff Size: Large adult long) Pulse 69 Wt 223 lb (101 kg) LMP 10/16/1997 (Approximate) SpO2 92% BMI 38.28 kg/m? Physical Exam Vitals and nursing note reviewed. Constitutional: Appearance: Normal appearance. HENT: Head: Normocephalic and atraumatic. Cardiovascular: Rate and Rhythm: Normal rate and regular rhythm. Pulses: Normal pulses. Heart sounds: Normal heart sounds. No murmur heard. Pulmonary: Effort: Pulmonary effort is normal. Breath sounds: Normal breath sounds. No wheezing or rhonchi. Abdominal: General: Abdomen is flat. Bowel sounds are normal. Palpations: Abdomen is soft. Tenderness: There is no abdominal tenderness. Musculoskeletal: General: Swelling present. Skin: General: Skin is warm and dry. Findings: Erythema present. Neurological: General: No focal deficit present. Mental Status: She is alert. Mental status is at baseline. Data Reviewed Labs: Imaging/Testing: Chart Clean Up: Medications Discontinued During This Encounter Medication Reason meclizine (Antivert) 25 MG tablet Reorder Trev Sampson MD 03/05/2024 10:59 PM Normal [facility] Progress Note The patient, Kaylynn Freedman, identity was verified by name and . Influenza VIS (s) given to patient for review prior to immunization administration. Received informed consent to proceed with Influenza immunization (s). Immunization (s) given as ordered by Dr. Sampson. Kaylynn Durán waited 15 minutes after injection, tolerated procedure well. Normal [facility] 36on 01-06-2024 36 Noted. [facility] Progress Noteon 12-22-2023 Progress Note Chart reviewed of ED follow up Seen in [facility] ED on 12/17/23 Reason: right elbow pain Discharge instructions: Please use a cushion over your elbow until your symptoms have resolved. Follow-up with your doctor in about 1 week. Take Tylenol and Motrin as needed for mild pain. Voice message: I am calling from Trev Sampson MD's office, following up after your recent ED visit. Please call the office if your symptoms are worse and we can schedule a follow up appointment. If patient calls back, please assist with scheduling a ED follow up appointment. Normal [facility] ED Nursing Noteon 12-17-2023 ED Nursing Note Pt to ER with compla int of right elbow pain after a fall 2 days ago. 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 She fell up the steps and hit her right elbow on the concrete step. Denies hitting her head or any loss of consciousness. States she has rested it and put ice on it without relief. States she is able to move the elbow without much pain, but when she goes to rest her elbow on a chair or in her car she gets a sharp burning pain shooting down her forearm into her hand. Pain 5/10 at this time. No obvious swelling or deformity noted. Pt with full range of motion, no pain in shoulder. Pt ambulatory on arrival with steady gait. Alert and oriented x 4. Skin warm and dry. Respirations even and unlabored. Call light in reach Normal [facility] ED Provider Noteon ED Provider Note Emergency Department Encounter [facility] ED Patient: Kaylynn Durán : 1970 Date of Evaluation: 12/17/2023 ED Provider: Alexis Gale DO Chief Complaint Chief Complaint Patient presents with Elbow Pain Fall CACHIL DEHE Kaylynn Durán is a 53 y.o. female who presents to the emergency department complaining of right elbow pain. Patient reports the previous day that she had a fall on staircase and landed on her right elbow. She initially did not think that she had any specific symptoms but later noted that she has pain when she attempts to lean her elbow on an armrest or in certain positions. She states this causes Pain that makes me feel sick . Denies any numbness or tingling. Denies any other injury. Additional history obtained from : n/a Barriers to obtaining history from patient: n/a ROS: Review of Systems completed as follows: (Bold = positive, Not bold = negative) GENERAL: fevers, chills, malaise MUSCULOSKELETAL: pain Past History Past Medical History: Diagnosis Date Edema swelling in legs High blood pressure High cholesterol Thyroid condition underactive Past Surgical History: Procedure Laterality Date GALLBLADDER SURGERY HYSTERECTOMY TONSILLECTOMY Social History Socioeconomic History Marital status: Number of children: 4 Tobacco Use Smoking status: Every Day Current packs/day: 1.00 Average packs/day: 1 pack/day for 38.0 years (38.0 ttl pk-yrs) Types: Cigarettes Passive exposure: Current Smokeless tobacco: Never Vaping Use Vaping status: Never Used Substance and Sexual Activity Alcohol use: Not Currently Comment: does not drink Drug use: Never Sexual activity: Yes Partners: Male I have reviewed the history above as provided by nursing notes. Medications/Allergies Discharge Medication List as of 12/17/2023 11:11 PM CONTINUE these medications which have NOT CHANGED Details albuterol 108 (90 Base) MCG/ACT inhaler Inhale 2 Puffs as instructed every 6 hours as needed for wheezing/shortness of breath. With spacer, Normal atorvastatin (Lipitor) 40 MG tablet Take 1 tablet (40 mg) by mouth daily., Starting Wed08/01/2023, Until Wed07/31/2024, Normal fluticasone (Flonase) 50 MCG/ACT nasal spray Administer 2 sprays into each nostril daily. Shake gently. Before first use, prime pump. After use, clean tip and replace cap., Starting Wed10/16/2022, Until Wed11/16/2023, Normal hydroCHLOROthiazide 12.5 MG tablet Take 1 tablet (12.5 mg) by mouth daily., Starting Wed11/16/2023, Until Wed11/15/2024, Normal levothyroxine (Synthroid, Levoxyl) 100 MCG tablet TAKE 1 TABLET BY MOUTH DAILY, Starting Beatriz 09/02/2023, Normal meclizine (Antivert) 25 MG tablet TAKE 1 TABLET BY MOUTH TWICE DAILY NEEDED for dizziness/vertigo, Normal metFORMIN XR (Glucophage-XR) 500 MG 24 hr tablet Take 1 tablet (500 mg) by mouth daily (with breakfast). Do not crush, chew, or split., Starting 08/01/2023, Until 07/31/2024, Normal metoprolol tartrate (Lopressor) 50 MG tablet Take 2 tablets (100 mg) by mouth See administration instructions for 2 doses. Check your HR the evening before your test and if HR >70 take a 2 tablets, If HR is between 60-70 then take 1 tab, If HR is <60 do not take any. Repeat 2 hours before your test ., Starting Wed09/21/2023, Until Wed09/20/2024 at 2359, Normal montelukast (Singulair) 10 MG tablet Take 1 tablet (10 mg) by mouth Nightly., Starting Wed07/30/2023, Until 07/29/2024, Normal Allergies Allergen Reactions Ciprofloxacin Itching and Swelling Penicillins Hives hives I have reviewed the history above as provided by nursing notes. Physical Exam ED Triage Vitals [12/17/23 2237] Temp Heart Rate Resp BP 36.7 ?C (98.1 ?F) 84 16 (!) 164/66 SpO2 Temp Source Heart Rate Source Patient Position 97 % Oral Monitor Sitting BP Location FiO2 (%) Left arm -- GENERAL: The patient appears nourished and normally developed. Vital signs as documented. EYES: PERRL. No scleral icterus or orbital trauma noted. HEENT: Mucous membranes moist. Nares patent without copious rhinorrhea. EXTREMITIES: There is no tenderness to palpation with range of motion of the shoulder, elbow or wrist. Patient does have tenderness near the olecranon process. There is normal sensation throughout to light touch. Capillary refill is normal. There are 2+ radial pulses bilaterally. SKIN: Good color, with no significant rashes. No pallor. NEURO: No obvious neurological deficits, normal sensation and strength bilaterally. Diagnostics Labs: Results for orders placed or performed in visit on 04/28/24 Hemoglobin A1c Result Value Ref Range HEMOGLOBIN A1C - [facility] 6.3 (H) <5.7 % of total Hgb TSH Result Value Ref Range TSH 12.37 (H) mIU/L Radiographs: XR elbow 3+ views right Final Result 1. No acute finding. Report Dictated on Electronically Signed By: MD Melchor Ortega (more content not included)... Normal [facility] XR Elbow - right 3 Viewson 0 12-17-2023 1. No acute finding. Report Dictated on Electronically Signed By: José Miguel Portillo MD Electronically Signed Date/Time: 12/17/2023 10:55 PM EDT [facility] Patient Name: KAYLYNN DURÁN : 1970 Exam Date/Time: 12/17/2023 22:49 Procedure: XR ELBOW 3+ VIEWS RIGHT Ordering Provider: GALE DUSTIN Reason For Exam: fall right elbow pain RIGHT ELBOW THREE VIEWS CLINICAL INDICATION: fall right elbow pain TECHNIQUE: Three views of the right elbow. COMPARISON: None FINDINGS: Joint spaces are maintained. No fracture or dislocation seen. No joint effusion. [facility] José Miguel Portillo MD - 12/17/2023 Patient Name: KAYLYNN DURÁN : 1970 Exam Date/Time: 12/17/2023 22:49 Procedure: XR ELBOW 3+ VIEWS RIGHT Ordering Provider: GALE DUSTIN Reason For Exam: fall right elbow pain RIGHT ELBOW THREE VIEWS CLINICAL INDICATION: fall right elbow pain TECHNIQUE: Three views of the right elbow. COMPARISON: None FINDINGS: Joint spaces are maintained. No fracture or dislocation seen. No joint effusion. IMPRESSION: 1. No acute finding. Report Dictated on Electronically Signed By: José Miguel Portillo MD Electronically Signed Date/Time: 12/17/2023 10:55 PM EDT [facility] Radiology Study observation (narrative) [facility] XR Elbow - right 3 ViewsOrde red By: José Miguel Portillo on 12-17-2023 [facility] Work Phone: 36on 12-01-2023 36 Insurance not in network, order has been canceled. Normal [facility] 36 We have been unable to reach your patient to schedule their testing. Test Name: Echo 1st Attempt: 10/26/23 2nd Attempt: 12/01/23 [facility] 36on 11-22-2023 36 Medication only sent in for test. No refills needed. Normal [facility] Office Visiton 11-16-2023 Follow-up visit [id number] Shannan Durán cornelio 1970 F Date Provider Department Center 11/16/2023 [id number], KORY [facility] Family History Problem Relation Age of Onset Cancer Mother Other cancer Mother Comments: heart issues Heart attack Mother Flynn's palsy Mother Comments: had once No Known Problems Father Alopecia Daughter No Known Problems Daughter No Known Problems Son No Known Problems Son Family Status - Relation Status Age at Mother Alive Father Daughter Alive Daughter Alive Son Alive Son Alive Maternal Grandmother Maternal Grandfather Paternal Grandmother Paternal Grandfather Level of Service:68382 [place] OFFICE/OUTPATIENT ESTABLISHED LOW MDM 20 MIN Reason for Visit and Comments: Blister [[id number]] - Patient states started last Wednesday, left wrist, blister, big, purple, painful and starting to get another blister on the right hand Normal [facility] Progress Noteon 11-16-2023 Progress Note [facility] [address] [facility] [address] Visit Type: Same Day PCP: Trev Sampson MD Reason for Visit: Blister (Patient states started last Wednesday, left wrist, blister, big, purple, painful and starting to get another blister on the right hand ) Assessment and Plan Beverly was seen today for blister. Diagnoses and all orders for this visit: Blister Other orders - hydroCHLOROthiazide 12.5 MG tablet; Take 1 tablet (12.5 mg) by mouth daily. I do not have a specific cause for her blisters. 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 It is limited to those areas which is interesting. Because the relatively acute still would ask her to continue to monitor. Discussed if they continue to get bigger or if she noticed them in other locations they would like to know this and we would get her to dermatology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 [address] [place] Neutrophils/100 WBC (Bld) 59.4 % Normal [facility] Comment on above: Order Comment: Speci men Type: BLOOD SPECIMEN Ordering Facility: [facility] Address: [address] [place] [address] Performed By: #### H STNT #### [facility] CLIA [id number] [address] [place] [address] [place] Nucleated RBC (Bld) [#/Vol] Normal [facility] Comment on above: Order Comment: Speci men Type: BLOOD SPECIMEN Ordering Facility: [facility] Address: [address] [place] [address] Performed By: #### H STNT #### [facility] CLIA [id number] [address] [place] Nucleated RBC/100 WBC (Bld) [Ratio] Normal [facility] Comment on above: Order Comment: Speci men Type: BLOOD SPECIMEN Ordering Facility: [facility] Address: [address] [place] [address] Performed By: #### H STNT #### [facility] CLIA [id number] [address] [place] [address] [place] Platelet mean volume (Bld) [Entitic vol] 9.7 fL Normal 9.0-12.7 [facility] Comment on above: Order Comment: Speci men Type: BLOOD SPECIMEN Ordering Facility: [facility] Address: [address] [place] [address] Performed By: #### H STNT #### [facility] CLIA [id number] [address] [place] [address] [place] Platelets (Bld) [#/Vol] 257 10*3/uL Normal 150-400 [facility] Comment on above: Order Comment: Speci men Type: BLOOD SPECIMEN Ordering Facility: [facility] Address: [address] [place] [address], [place] [address] Performed By: #### H STNT #### [facility] CLIA [id number] [address] [place] [address] [place] [facility] RBC (Bld) [#/Vol] 5.40 10*6/uL High 3.90-5.20 [facility] Comment on above: Order Comment: Speci men Type: BLOOD SPECIMEN Ordering Facility: [facility] Address: [address] Performed By: #### H STNT #### [facility] CLIA [id number] [address] [place] [address] [facility] WBC (Bld) [#/Vol] 11.38 10*3/uL High 3.70-11.00 [facility] Comment on above: Order Comment: Speci men Type: BLOOD SPECIMEN Ordering Facility: [facility] Address: [address] [place] [address] Performed By: #### H STNT #### [facility] CLIA [id number] [address] [id number] [facility] CT BRAIN WO IVCONon 10-10-[address] BRAIN WO IVCON * * *Final Report* * * DATE OF EXAM: Oct 09 2022 5:28PM [facility] 0504 - CT BRAIN WO IVCON / PROCEDURE REASON: Dizziness, non-specific * * * * Physician Interpretation * * * * EXAMINATION: CT BRAIN WO IVCON CLINICAL HISTORY: Headache TECHNIQUE: Serial axial images without IV contrast were obtained from the vertex to the foramen magnum. MQ: CTBWO_3 CT Radiation dose: Integrated Dose-Length Product (DLP) for this visit = 772.45 mGy*cm CT Dose Reduction Employed: No dose reduction techniques were required COMPARISON: 05/22/2021 RESULT: Training And Development Officer (topogram) images: No additional findings. Post-operative change: None. Acute change: No evidence of an acute infarct or other acute parenchymal process. Hemorrhage: No evidence of acute intracranial hemorrhage. ECASS hemorrhagic transformation score: Not Applicable Mass Lesion / Mass Effect: There is no evidence of an intracranial mass or extraaxial fluid collection. No significant mass effect. Chronic change: None apparent. Parenchyma: There is no significant volume loss. The brain parenchyma is otherwise within normal limits for age. Ventricles: The ventricles are within normal limits of size and configuration for age. Paranasal sinuses and skull base: The visualized paranasal sinuses are grossly clear. The skull base and imaged soft tissues are unremarkable. IMPRESSION: No acute intracranial abnormality. Digital Press Operator: PSCB Transcribe Date/Time: Oct 09 2022 5:32P Dictated by : NEL OBREGON MD This examination was interpreted and the report reviewed and electronically signed by: NEL OBREGON MD on Oct 09 2022 5:34PM EST [id number] Normal [facility] CT NECK SOFT TISSUE W IVCONo n 10-09-2022 CT NECK SOFT TISSUE W IVCON * * *Final Report* * * DATE OF EXAM: Oct 09 2022 5:31PM [facility] 0013 - CT NECK SOFT TISSUE W IVCON / PROCEDURE REASON: Acute Parotitis * * * * Physician Interpretation * * * * CT NECK SOFT TISSUE W IVCON History: Acute Parotitis Right facial swelling and pain into the right jaw and right ear for 2 weeks Comparison: CT brain 10/09/2022 Technique: A series of contiguous helical scans were performed from the skull base to the aortic arch with intravenous contrast. Contrast: Omnipaque 300. Contrast Dose: 100 cc Route of Administration: IV CT Radiation dose: Integrated Dose-length product (DLP) for this visit = 604.38 mGy*cm. CT Dose Reduction Employed: No dose reduction techniques were required RESULT: Postoperative change: None apparent. Suprahyoid Neck: There is subtle asymmetric fat stranding and edema along the right submandibular space with mild asymmetric thickening of the right platysma muscle. Subtle asymmetric hyperenhancement of the right parotid gland with mild stranding of the periparotid fat. Findings are suggestive of mild parotiditis with mild adjacent cellulitis. There is no discrete soft tissue abscess. No evidence of a radiopaque calcified sialolith or ductal dilation along the right parotid duct. The right submandibular and is within normal. Nasopharynx and oropharynx appear normal within constraints of motion artifact from swallowing. Parapharyngeal tissue planes are preserved. Oral cavity and floor of mouth appear normal within constraints of artifact from dental amalgam. The left parotid and submandibular spaces are within normal. Brazer Helper Induction spaces appear normal. Infrahyoid Neck: Hypopharynx, larynx, and imaged infraglottic trachea appear normal. Imaged upper esophagus is unremarkable. Thyroid gland is homogeneous without evidence of discrete nodule. Lymph Nodes: No cervical lymphadenopathy by size criteria. Scattered normal sized lymph nodes without suspicious morphologic features. Carotid Space: No masses. Patent extracranial carotid systems and internal jugular veins bilaterally. Orbits, Face and Skull Base: Orbital soft tissue planes are preserved. Paranasal sinuses are clear. Mastoid air cells and middle ear cavities are clear. No evidence of an osteolytic or osteoblastic process in the skull base. Imaged intracranial contents: No abnormal intracranial enhancement, mass effect, or hydrocephalus. Cervical spine and remaining osseous structures: No discrete osteolytic or osteoblastic process. Moderate spondylotic changes in the visualized spine. Lung apices: Imaged lung apices are clear of focal consolidation or mass. Other: Not applicable. IMPRESSION: Subtle findings of possible mild right parotiditis with adjacent periparotid inflammatory changes extending into the right submandibular space. No radiopaque calcified sialolith or soft tissue abscess. Digital Press Operator: RICK Transcribe Date/Time: Oct 09 2022 6:32P Dictated by : ULICES TORRES MD This examination was interpreted and the report reviewed and electronically signed by: ULICES TORRES MD on Oct 09 2022 6:42PM EST [id number] Normal [facility] Comprehensive metabolic 2000 panelon 10-09-2022 Albumin [Mass/Vol] 4.5 g/dL Normal 3.9-4.9 [facility] Comment on above: Order Comment: Mariana draper Type: BLOOD SPECIMEN Ordering Facility: [facility] Address: [address] [address] Performed By: #### 2 4323-8 #### [facility] CLIA [id number] [address] [place] [address] [place] ALP [Catalytic activity/Vol] 76 U/L Normal 34-123 [facility] Comment on above: Order Comment: Mariana draper Type: BLOOD SPECIMEN Ordering Facility: [facility] Address: [address] [place], [place] [address] Performed By: #### 2 4323-8 #### [facility] CLIA [id number] [address] [place] [address] [place] ALT With P-5'-P [Catalytic activity/Vol] 32 U/L Normal 7-38 [facility] Comment on above: Order Comment: Speci men Type: BLOOD SPECIMEN Ordering Facility: [facility] Address: [address] [place] [address] Performed By: #### 2 4323-8 #### [facility] CLIA [id number] [address] [place] [address] [place] Anion gap [Moles/Vol] 12 mmol/L Normal 9-18 [facility] Comment on above: Order Comment: Speci men Type: BLOOD SPECIMEN Ordering Facility: [facility] Address: [address] [place] [address] Performed By: #### 2 4323-8 #### [facility] CLIA [id number] [address] [place], [place] [address] [place] [address] [place] AST With P-5'-P [Catalytic activity/Vol] 24 U/L Normal 13-35 [facility] Comment on above: Order Comment: Speci men Type: BLOOD SPECIMEN Ordering Facility: [facility] Address: [address] [place] [address] Performed By: #### 2 4323-8 #### [facility] CLIA [id number] [address] [place] [address] [place] Bilirubin [Mass/Vol] 0.3 mg/dL Normal 0.2-1.3 [facility] Comment on above: Order Comment: Speci men Type: BLOOD SPECIMEN Ordering Facility: [facility] Address: [address] [place] [address] Performed By: #### 2 4323-8 #### [facility] CLIA [id number] [address] [place] [address] [place] Calcium [Mass/Vol] 9.9 mg/dL Normal 8.5-10.2 [facility] Comment on above: Order Comment: Speci men Type: BLOOD SPECIMEN Ordering Facility: [facility] Address: [address] [place] [address] Performed By: #### 2 4323-8 #### [facility] CLIA [id number] [address] [place] [address] [place] Chloride [Moles/Vol] 99 mmol/L Normal 97-105 [facility] Comment on above: Order Comment: Speci men Type: BLOOD SPECIMEN Ordering Facility: [facility] Address: [address] [place] [address] Performed By: #### 2 4323-8 #### [facility] CLIA [id number] [address] [place] [address] [place] CO2 [Moles/Vol] 26 mmol/L Normal 22-30 [facility] Comment on above: Order Comment: Speci men Type: BLOOD SPECIMEN Ordering Facility: [facility] Address: [address] [place] [address] Performed By: #### 2 4323-8 #### [facility] CLIA [id number] [address] [place] [address] [place] Creatinine [Mass/Vol] 0.85 mg/dL Normal 0.58-0.96 [facility] Comment on above: Order Comment: Speci men Type: BLOOD SPECIMEN Ordering Facility: [facility] Address: [address] [place] [address] Performed By: #### 2 4323-8 #### [facility] CLIA [id number] [address] [place] [address] [facility] [place] ESTIMATED GLOMERULAR FILTRATION RATE 82 mL/min/1.73m??? Normal >=60 [facility] Comment on above: Order Comment: Speci men Type: BLOOD SPECIMEN Ordering Facility: [facility] Address: [address] [place] [address] Result Comment: Leonila mated Glomerular Filtration Rate (eGFR) is calculated using the 2020 CKD-EPI creatinine equation. This equation utilizes serum creatinine, sex, and age as parameters. The creatinine assay has traceable calibration to isotope dilution-mass spectrometry. Refer to KDIGO guidelines for clinical interpretation. In patients with unstable renal function, e.g. those with acute kidney injury, the eGFR may not accurately reflect actual GFR. Performed By: #### 2 4323-8 #### [facility] CLIA [id number] [address] [place] [address] [place] Glucose [Mass/Vol] 96 mg/dL Normal 74-99 [facility] Comment on above: Order Comment: Mariana draper Type: BLOOD SPECIMEN Ordering Facility: [facility] Address: [address] [place], [place] [id number] Result Comment: The [place] Diabetes Association (ADA) provides guidance for cutoff values for fasting glucose and random glucose. The ADA defines fasting as no caloric intake for at least 8 hours. Fasting plasma glucose results between 100 to 125 mg/dL indicate increased risk for diabetes (prediabetes). Fasting plasma glucose results greater than or equal to 126 mg/dL meet the criteria for diagnosis of diabetes. In the absence of unequivocal hyperglycemia, results should be confirmed by repeat testing. In a patient with classic symptoms of hyperglycemia or hyperglycemic crisis, random plasma glucose results greater than or equal to 200 mg/dL meet the criteria for diagnosis of diabetes. Reference: Standards of Medical Care in Diabetes 2016, [place] Diabetes Association. Diabetes Care. 2016.39(Suppl 1). Performed By: #### 2 4323-8 #### [facility] CLIA [id number] [address] [place] [address] [place] Potassium [Moles/Vol] 4.3 mmol/L Normal 3.7-5.1 [facility] Comment on above: Order Comment: Mariana draper Type: BLOOD SPECIMEN Ordering Facility: [facility] Address: [address] [id number] Performed By: #### 2 4323-8 #### [facility] CLIA [id number] [address] [place] [address] [place] Protein [Mass/Vol] 7.7 g/dL Normal 6.3-8.0 [facility] Comment on above: Order Comment: Mariana draper Type: BLOOD SPECIMEN Ordering Facility: [facility] Address: [address] [place] [address] Performed By: #### 2 4323-8 #### [facility] CLIA [id number] [address] [id number] [place] Sodium [Moles/Vol] 137 mmol/L Normal 136-144 [facility] Comment on above: Order Comment: Speci men Type: BLOOD SPECIMEN Ordering Facility: [facility] Address: [address] [place] [address] Performed By: #### 2 4323-8 #### [facility] CLIA [id number] [address] [id number] [place] Urea nitrogen [Mass/Vol] 13 mg/dL Normal 7-21 [facility] Comment on above: Order Comment: Speci men Type: BLOOD SPECIMEN Ordering Facility: [facility] Address: [address] [place] [address] Performed By: #### 2 4323-8 #### [facility] CLIA [id number] [address] [id number] [place] ECG COMPLETEon 10-09-2022 ECG COMPLETE Ventricular Rate : 7 5 BPM Atrial Rate : 75 BPM P-R Interval : 180 ms QRS Duration : 96 ms Q-T Interval : 418 ms QTC Calculation(Bazett) : 466 ms Calculated P Mcdonald : 71 degrees Calculated R Mcdonald : 86 degrees Calculated T Mcdonald : 55 degrees NORMAL SINUS RHYTHM NONSPECIFIC ST ABNORMALITY ABNORMAL ECG WHEN COMPARED WITH ECG OF 27-JUN-2022 22:54, NO SIGNIFICANT CHANGE WAS FOUND Confirmed by MD MATA VINAYAK ([id number]) on 10/12/2022 3:14:43 PM NAME : KAYLYNN DURÁN PID : [id number] : 1970 Gender : Female Race : ORD : [id number] Procedure Date : Oct 09 2022 16:17:41 Edit Date : Oct 12 2022 15:14:45 Diagnosis: NORMAL SINUS RHYTHM NONSPECIFIC ST ABNORMALITY ABNORMAL ECG WHEN COMPARED WITH ECG OF 27-JUN-2022 22:54, NO SIGNIFICANT CHANGE WAS FOUND Confirmed by MD MATA VINAYAK ([id number]) on 10/12/2022 3:14:43 PM Test Reason : Shortness of Breath Location : 150 : [facility] Overread By : MD MATA VINAYAK Edited By : MD MATA VINAYAK Referred By : , Acquired by : BIANKA SCHAEFER [facility] ED PROV NOTEon 10-09-2022 ED PROV NOTE HNO ID: [id number] Author: Helen Manzano DO Service: Emergency Medicine Author Type: Physician Type: ED Provider Notes Filed: 10/10/2022 4:20 AM Note Text: ED Provider Note Patient Name: Kaylynn Durán : 1970 SERVICE DATE: 10/09/22 History Patient presents with: Ear Pain Kaylynn Durán is a 52 year old female with history of multiple chronic medical problems who presents with Ear Pain. - Symptoms began 2 weeks prior to arrival. - Severity: moderate - Timing: constant - Quality: sore - Symptoms are associated with chronic sinus drainage/pain, headache, dizziness described as starting of vertigo which she has had before, right facial pain/swelling in front of right ear she noticed today after eating, cough, shortness of breath. - Symptoms are not associated with abdominal pain, chest pain, chills, diarrhea, fever, nausea, rash, vomiting, head injury, vision changes, numbness, weakness, difficulty speaking, sore throat, neck pain, neck stiffness. Patient presents with right facial/jaw pain in front of her right ear that she noticed today after eating. She states that she has been having right ear pain for the past couple weeks. She states that it feels like her ear is clogged. She states that there has been no injury to the ear. No ear drainage. No fever or chills. She states today she noticed some dizziness that she describes as the beginning of vertigo. She states that she had vertigo before and this is similar. She states she does have a frontal headache, which she states she does have frequently and is typical of previous headaches. She states it was gradual in onset and denies any sudden onset of headache. She states she has chronic sinus pain and drainage and denies anything new or different. No sore throat. No dental pain. No neck pain or stiffness. She denies any head injury. She states she does have a cough and does feel short of breath. She denies chest pain. PAST MEDICAL HISTORY Diagnosis Date Abnormal electrocardiogram (ECG) (EKG) 09/10/2015 Acute sinusitis Acute upper respiratory infection Asthma Blood in urine Bronchospasm Candidiasis of mouth Cellulitis of foot Left foot, plantar aspect of forefoot Cellulitis of lower leg left Cigarette smoker Cramp in lower leg Both legs Essential hypertension Exacerbation of intermittent asthma Globus sensation Headache Hyperlipidemia 10 year CHD risk is 10% Hypothyroidism Dr. Argueta Increased frequency of urination Joint pain Known medical problems 2+ pitting edema Known medical problems Maculopapular eruption Known medical problems O/E - edema of legs Muscle pain Nasal congestion Nausea Nontoxic single thyroid nodule Numbness of hand Obesity Otalgia, right ear Pain in female pelvis Pain in lower limb Paresthesia of hand right Right flank pain Shoulder pain Smoker Vertigo Vitamin D deficiency PAST SURGICAL HISTORY Procedure Laterality Date CHOLECYSTECTOMY HYSTERECTOMY HX 2007 TONSILLECTOMY HX removed when she was a child TUBAL LIGATION HX FAMILY HISTORY Problem Relation Age of Onset other (Dementia [Other]) Paternal Grandfather other (Heart disease [Other]) Mother Social History Tobacco Use Smoking status: Every Day Packs/day: 1.00 Types: Cigarettes Smokeless tobacco: Never Vaping Use Vaping Use: Never used Substance and Sexual Activity Alcohol use: Yes Comment: yearly Drug use: Yes Types: Marijuana Comment: rare Sexual activity: Not on file Comment: No reported history ALLERGIES Allergen Reactions Ciprofloxacin Swelling, Itching Penicillins Hives Review of Systems Constitutional: Negative for chills and fever. HENT: Positive for ear pain, facial swelling and sinus pain. Negative for dental problem, drooling, ear discharge, sore throat, trouble swallowing and voice change. Eyes: Negative for photophobia, pain, redness and visual disturbance. Respiratory: Positive for cough and shortness of breath. Cardiovascular: Negative for chest pain and leg swelling. Gastrointestinal: Negative for abdominal pain, diarrhea, nausea and vomiting. Genitourinary: Negative for flank pain. Musculoskeletal: Negative for neck pain and neck stiffness. Skin: Negative for rash. Neurological: Positive for dizziness and headaches. Negative for syncope, facial asymmetry, speech difficulty, weakness and numbness. Psychiatric/Behavioral: Negative for agitation and confusion. Physical Exam Vitals [10/09/22 1522] BP Pulse Temp Temp src Resp SpO2 Weight Height 133/80 82 36.6 ?C (97.9 ?F) -- 20 (!) 94 % 102.1 kg (225 lb) 1.626 m (5' 4) Physical Exam Vitals and nursing note reviewed. Constitutional: General: She is not in acute distress. Appearance: She is not ill-appearing, toxic-appearing or diaphoretic. HENT: Head: Normocephalic and atraumatic. No raccoon eyes, Bat (more content not included)... Normal [facility] HIGH SENSITIVITY TROPONIN T (INITIAL)on 10-09-2022 HIGH SENSITIVITY ZACK 11 ng/L Normal <12 [facility] Comment on above: Order Comment: Mariana draper Type: BLOOD SPECIMEN Ordering Facility: [facility] Address: [address] [place] [address] Result Comment: When assessing risk for acute coronary syndromes: In patients undergoing blood draw greater than or equal to 2 hours from symptom onset, with history of very low to moderate risk and non-ischemic ECG, an initial hs-Troponin T less than 12 ng/L AND a 1 hour delta hs-Troponin T less than 3 ng/L should be considered very low risk for 30 day MACE. Performed By: #### H STNT #### [facility] CLIA [id number] [address] [place] [address] HIGH SENSITIVITY TROPONIN T (SECOND)on 10-09-2022 HIGH SENSITIVITY ZACK 12 ng/L High <12 [facility] Comment on above: Order Comment: Mariana draper Type: BLOOD SPECIMEN Ordering Facility: [facility] Address: [address] [place] [address] Result Comment: When assessing risk for acute coronary syndromes: In patients undergoing blood draw greater than or equal to 2 hours from symptom onset, with history of very low to moderate risk and non-ischemic ECG, an initial hs-Troponin T less than 12 ng/L AND a 1 hour delta hs-Troponin T less than 3 ng/L should be considered very low risk for 30 day MACE. Performed By: #### H STNT #### [facility] CLIA [id number] [address] [place] [address] HIGH SENSITIVITY TROPONIN T (THIRD) 3 HRS AFTER INITIALon 10-09-2022 HIGH SENSITIVITY ZACK 12 ng/L High <12 [facility] Comment on above: Order Comment: Mariana draper Type: BLOOD SPECIMEN Ordering Facility: [facility] Address: [place] [address] Result Comment: When assessing risk for acute coronary syndromes: In patients undergoing blood draw greater than or equal to 2 hours from symptom onset, with history of very low to moderate risk and non-ischemic ECG, an initial hs-Troponin T less than 12 ng/L AND a 1 hour delta hs-Troponin T less than 3 ng/L should be considered very low risk for 30 day MACE. Performed By: #### L [id number] #### [facility] CLIA [id number] [address] [place] [address] [facility] XR CHEST 2V FRONTAL/LATon XR CHEST 2V FRONTAL/LAT * * *Final Report* * * DATE OF EXAM: Oct 09 2022 4:39PM LDX 5291 - XR CHEST 2V FRONTAL/LAT / PROCEDURE REASON: Shortness of breath * * * * Physician Interpretation * * * * EXAMINATION: CHEST RADIOGRAPH (2 VIEW FRONTAL and LATERAL) CLINICAL HISTORY: Shortness of breath MQ: XC2_6 EXAM DATE/TIME: 10/09/2022 4:39 PM COMPARISON: 06/27/2022 RESULT: Lines, tubes, and devices: None. Lungs and pleura: No consolidation. No lung mass. No pleural effusion. No pneumothorax. Cardiomediastinal silhouette: Normal cardiomediastinal silhouette. Bones and soft tissues: Degenerative changes are present within the thoracic spine. IMPRESSION: No acute radiographic abnormality. Digital Press Operator: PSCB Transcribe Date/Time: Oct 09 2022 4:45P Dictated by : JASS LIVINGSTON MD This examination was interpreted and the report reviewed and electronically signed by: JASS LIVINGSTON MD on Oct 09 2022 4:46PM EST [id number] Normal [facility] Basic metabolic 2000 panelon 06-28-2022 Anion gap [Moles/Vol] 8 mmol/L Low 9-18 [facility] Comment on above: Order Comment: Speci men Type: BLOOD SPECIMEN Ordering Facility: [facility] Address: [address] [place] [address] Performed By: #### 2 4321-2, , 43874-2 #### [facility] CLIA [id number] [address] [place] [address] [place] Calcium [Mass/Vol] 9.3 mg/dL Normal 8.5-10.2 [facility] Comment on above: Order Comment: Speci men Type: BLOOD SPECIMEN Ordering Facility: [facility] Address: [address] [place] [address] Performed By: #### 2 4321-2, , 18459-1 #### [facility] CLIA [id number] [address] [place] [address] [place] Chloride [Moles/Vol] 99 mmol/L Normal 97-105 [facility] Comment on above: Order Comment: Speci men Type: BLOOD SPECIMEN Ordering Facility: [facility] Address: [address] [place] [address] Performed By: #### 2 4321-2, , 13425-7 #### [facility] CLIA [id number] [address] [place] [address] [place] CO2 [Moles/Vol] 30 mmol/L Normal 22-30 [facility] Comment on above: Order Comment: Speci men Type: BLOOD SPECIMEN Ordering Facility: [facility] Address: [address] [address] Performed By: #### 2 4321-2, , 42612-2 #### [facility] CLIA [id number] [address] [place] [address] [place] Creatinine [Mass/Vol] 0.72 mg/dL Normal 0.58-0.96 [facility] Comment on above: Order Comment: Speci men Type: BLOOD SPECIMEN Ordering Facility: [facility] Address: [address] [place] [address] Performed By: #### 2 4321-2, 48859-2, 28607-1 #### [facility] CLIA [id number] [address] [place], [place] [id number] [place] ESTIMATED GLOMERULAR FILTRATION RATE 100 mL/min/1.73m??? Normal >=60 [facility] Comment on above: Order Comment: Mariana draper Type: BLOOD SPECIMEN Ordering Facility: [facility] Address: [address] [place] [address] Result Comment: Leonila mated Glomerular Filtration Rate (eGFR) is calculated using the 2020 CKD-EPI creatinine equation. This equation utilizes serum creatinine, sex, and age as parameters. The creatinine assay has traceable calibration to isotope dilution-mass spectrometry. Refer to KDIGO guidelines for clinical interpretation. In patients with unstable renal function, e.g. those with acute kidney injury, the eGFR may not accurately reflect actual GFR. Performed By: #### 2 4321-2, 00201-1, 03131-5 #### [facility] CLIA [id number] [address] [place] [address] [place] Glucose [Mass/Vol] 155 mg/dL High 74-99 [facility] Comment on above: Order Comment: Mariana draper Type: BLOOD SPECIMEN Ordering Facility: [facility] Address: [address] [place] [address] Result Comment: The [place] Diabetes Association (ADA) provides guidance for cutoff values for fasting glucose and random glucose. The ADA defines fasting as no caloric intake for at least 8 hours. Fasting plasma glucose results between 100 to 125 mg/dL indicate increased risk for diabetes (prediabetes). Fasting plasma glucose results greater than or equal to 126 mg/dL meet the criteria for diagnosis of diabetes. In the absence of unequivocal hyperglycemia, results should be confirmed by repeat testing. In a patient with classic symptoms of hyperglycemia or hyperglycemic crisis, random plasma glucose results greater than or equal to 200 mg/dL meet the criteria for diagnosis of diabetes. Reference: Standards of Medical Care in Diabetes 2016, [place] Diabetes Association. Diabetes Care. 2016.39(Suppl 1). Performed By: #### 2 4321-2, 84335-6, 76554-7 #### [facility] CLIA [id number] [address] [place] [address] [place] Potassium [Moles/Vol] 4.3 mmol/L Normal 3.7-5.1 [facility] Comment on above: Order Comment: Speci men Type: BLOOD SPECIMEN Ordering Facility: [facility] Address: [address] [place] [address] Performed By: #### 2 4321-2, 13109-8, 09415-1 #### [facility] CLIA [id number] [address] [place] [address] [place] Sodium [Moles/Vol] 137 mmol/L Normal 136-144 [facility] Comment on above: Order Comment: Speci men Type: BLOOD SPECIMEN Ordering Facility: [facility] Address: [address] [place] [address] Performed By: #### 2 4321-2, 45241-1, 08136-5 #### [facility] CLIA [id number] [address] [place] [address] [place] Urea nitrogen [Mass/Vol] 16 mg/dL Normal 7-21 [facility] Comment on above: Order Comment: Speci men Type: BLOOD SPECIMEN Ordering Facility: [facility] Address: [address] [place] [address] Performed By: #### 2 4321-2, 51153-9, 02875-2 #### [facility] CLIA [id number] [address] [place] [address] [place] CBC W Auto Differential pane l (Bld)on 06-28-2022 Basophils (Bld) [#/Vol] 10*3/uL Normal <0.11 [facility] Comment on above: Order Comment: Speci men Type: BLOOD SPECIMEN Ordering Facility: [facility] Address: [address] [place] [address] Performed By: #### 5 7021-8 #### [facility] CLIA [id number] [address] [place] Basophils/100 WBC (Bld) 0.3 % Normal [facility] Comment on above: Order Comment: Speci men Type: BLOOD SPECIMEN Ordering Facility: [facility] Address: [address] [place] [address] Performed By: #### 5 7021-8 #### [facility] CLIA [id number] [address] [place] Differential cell count method Nom (Bld) Auto Normal [facility] Comment on above: Order Comment: Speci men Type: BLOOD SPECIMEN Ordering Facility: [facility] Address: [address] [place] [address] Performed By: #### 5 7021-8 #### [facility] CLIA [id number] [address] [place] [address] [place] Eosinophils (Bld) [#/Vol] 0.23 10*3/uL Normal <0.46 [facility] Comment on above: Order Comment: Speci men Type: BLOOD SPECIMEN Ordering Facility: [facility] Address: [address] [place] [address] Performed By: #### 5 7021-8 #### [facility] CLIA [id number] [address] [place] [address] [place] Eosinophils/100 WBC (Bld) 3.4 % Normal [facility] Comment on above: Order Comment: Speci men Type: BLOOD SPECIMEN Ordering Facility: [facility] Address: [address] [place] [address] Performed By: #### 5 7021-8 #### [facility] CLIA [id number] [address] [place] Erythrocyte distribution width (RBC) [Ratio] 13.6 % Normal 11.5-15.0 [facility] Comment on above: Order Comment: Speci men Type: BLOOD SPECIMEN Ordering Facility: [facility] Address: [address] [place] [address] Performed By: #### 5 7021-8 #### [facility] CLIA [id number] [address] [place] [address] [place] Hematocrit (Bld) [Volume fraction] 45.6 % Normal 36.0-46.0 [facility] Comment on above: Order Comment: Speci men Type: BLOOD SPECIMEN Ordering Facility: [facility] Address: [address] [place] [address] Performed By: #### 5 7021-8 #### [facility] CLIA [id number] [address] [place] [address] [place] Hemoglobin (Bld) [Mass/Vol] 14.6 g/dL Normal 11.5-15.5 [facility] Comment on above: Order Comment: Speci men Type: BLOOD SPECIMEN Ordering Facility: [facility] Address: [address] [place] [address] Performed By: #### 5 7021-8 #### [facility] CLIA [id number] [address] [place] [address] [place] Immature granulocytes (Bld) [#/Vol] 10*3/uL Normal <0.10 [facility] Comment on above: Order Comment: Speci men Type: BLOOD SPECIMEN Ordering Facility: [facility] Address: [address] [place] [address] Performed By: #### 5 7021-8 #### [facility] CLIA [id number] [address] [place] [address] [place] Immature granulocytes/100 WBC (Bld) 0.1 % Normal [facility] Comment on above: Order Comment: Speci men Type: BLOOD SPECIMEN Ordering Facility: [facility] Address: [address] [place] [address] Performed By: #### 5 7021-8 #### [facility] CLIA [id number] [address] [place] [address] [place] Lymphocytes (Bld) [#/Vol] 2.95 10*3/uL Normal 1.00-4.00 [facility] Comment on above: Order Comment: Speci men Type: BLOOD SPECIMEN Ordering Facility: [facility] Address: [address] [place] [address] Performed By: #### 5 7021-8 #### [facility] CLIA [id number] [address] [place] [address] Lymphocytes/100 WBC (Bld) 43.6 % Normal [facility] Comment on above: Order Comment: Speci men Type: BLOOD SPECIMEN Ordering Facility: [facility] Address: [address] [place] [address] Performed By: #### 5 7021-8 #### [facility] CLIA [id number] [address] [place] [address] [facility] MCH (RBC) [Entitic mass] 29.7 pg Normal 26.0-34.0 [facility] Comment on above: Order Comment: Speci men Type: BLOOD SPECIMEN Ordering Facility: [facility] Address: [address] [place] [address] Performed By: #### 5 7021-8 #### [facility] CLIA [id number] [address] [place] [address] [place] MCHC (RBC) [Mass/Vol] 32.0 g/dL Normal 30.5-36.0 [facility] Comment on above: Order Comment: Speci men Type: BLOOD SPECIMEN Ordering Facility: [facility] Address: [address] [place] [address] Performed By: #### 5 7021-8 #### [facility] CLIA [id number] [address] [place] [address] MCV (RBC) [Entitic vol] 92.9 fL Normal 80.0-100.0 [facility] Comment on above: Order Comment: Speci men Type: BLOOD SPECIMEN Ordering Facility: [facility] Address: [address] [place] [address] Performed By: #### 5 7021-8 #### [facility] CLIA [id number] [address] [place] [address] Monocytes (Bld) [#/Vol] 0.71 10*3/uL Normal <0.87 [facility] Comment on above: Order Comment: Speci men Type: BLOOD SPECIMEN Ordering Facility: [facility] Address: [address] [place] [address] Performed By: #### 5 7021-8 #### [facility] CLIA [id number] [address] [place] [address] [place] Monocytes/100 WBC (Bld) 10.5 % Normal [facility] Comment on above: Order Comment: Speci men Type: BLOOD SPECIMEN Ordering Facility: [facility] Address: [address] [place] [address] Performed By: #### 5 7021-8 #### [facility] CLIA [id number] [address] [place] [address] [place] Neutrophils (Bld) [#/Vol] 2.84 10*3/uL Normal 1.45-7.50 [facility] Comment on above: Order Comment: Speci men Type: BLOOD SPECIMEN Ordering Facility: [facility] Address: [address] [place] [address] Performed By: #### 5 7021-8 #### [facility] CLIA [id number] [address] [place], [place] [address] [place] [address] [place] Neutrophils/100 WBC (Bld) 42.1 % Normal [facility] Comment on above: Order Comment: Speci men Type: BLOOD SPECIMEN Ordering Facility: [facility] Address: [address] [place] [address] Performed By: #### 5 7021-8 #### [facility] CLIA [id number] [address] [place] [address] [place] Nucleated RBC (Bld) [#/Vol] Normal [facility] Comment on above: Order Comment: Speci men Type: BLOOD SPECIMEN Ordering Facility: [facility] Address: [address] [place] [address] Performed By: #### 5 7021-8 #### [facility] CLIA [id number] [address] [place] [address] [place] Nucleated RBC/100 WBC (Bld) [Ratio] Normal [facility] Comment on above: Order Comment: Speci men Type: BLOOD SPECIMEN Ordering Facility: [facility] Address: [address] [place] [address] Performed By: #### 5 7021-8 #### [facility] CLIA [id number] [address] [place] [address] [place] Platelet mean volume (Bld) [Entitic vol] 9.6 fL Normal 9.0-12.7 [facility] Comment on above: Order Comment: Speci men Type: BLOOD SPECIMEN Ordering Facility: [facility] Address: [address] [place] [address] Performed By: #### 5 7021-8 #### [facility] CLIA [id number] [address] [place] [address] [place] Platelets (Bld) [#/Vol] 224 10*3/uL Normal 150-400 [facility] Comment on above: Order Comment: Speci men Type: BLOOD SPECIMEN Ordering Facility: [facility] Address: [address] [place] [address] Performed By: #### 5 7021-8 #### [facility] CLIA [id number] [address] [place] [address] [place] RBC (Bld) [#/Vol] 4.91 10*6/uL Normal 3.90-5.20 [facility] Comment on above: Order Comment: Speci men Type: BLOOD SPECIMEN Ordering Facility: [facility] Address: [address] [place] [address] Performed By: #### 5 7021-8 #### [facility] CLIA [id number] [address] [place] [address] [place] WBC (Bld) [#/Vol] 6.76 10*3/uL Normal 3.70-11.00 [facility] Comment on above: Order Comment: Speci men Type: BLOOD SPECIMEN Ordering Facility: [facility] Address: [address] [place] [id number] Performed By: #### 5 7021-8 #### [facility] CLIA [id number] [address] [place] [address] [place] [facility] ECG COMPLETEon 06-28-2022 ECG COMPLETE Ventricular Rate : 7 7 BPM Atrial Rate : 77 BPM P-R Interval : 168 ms QRS Duration : 106 ms Q-T Interval : 402 ms QTC Calculation(Bazett) : 454 ms Calculated P Mcdonald : 67 degrees Calculated R Mcdonald : 88 degrees Calculated T Mcdonald : 58 degrees NORMAL SINUS RHYTHM NORMAL ECG WHEN COMPARED WITH ECG OF 23-AUG-2021 23:43, NO SIGNIFICANT CHANGE WAS FOUND Confirmed by MD MATA VINAYAK ([id number]) on 06/29/2022 1:44:09 PM NAME : KAYLYNN DURÁN PID : [id number] : 1970 Gender : Female Race : ORD : [id number] Procedure Date : Jun 27 2022 22:54:14 Edit Date : Jun 29 2022 13:44:10 Diagnosis: NORMAL SINUS RHYTHM NORMAL ECG WHEN COMPARED WITH ECG OF 23-AUG-2021 23:43, NO SIGNIFICANT CHANGE WAS FOUND Confirmed by MD MATA VINAYAK ([id number]) on 06/29/2022 1:44:09 PM Test Reason : Chest Pain Location : 150 : [facility] 12 Overread By : MD MATA VINAYAK Edited By : MD MATA VINAYAK Referred By : , Acquired by : JAYLEEN HENDRICKS [facility] ED PROV NOTEon 06-28-2022 ED PROV NOTE HNO ID: [id number] Author: José Miguel Shelby MD Service: Emergency Medicine Author Type: Physician Type: ED Provider Notes Filed: 06/27/2022 11:54 PM Note Text: ED Provider Note Patient Name: Kaylynn Durán : 1970 SERVICE DATE: 06/27/22 History Patient presents with: Edema Shortness of Breath Fatigue Kaylynn Durán is a 52 year old female with history of multiple chronic medical problems who presents with Edema, Shortness of Breath, and Fatigue. Patient took nothing for this prior to arrival. - Symptoms began 1 weeks prior to arrival. - Severity: moderate - Timing: constant - Quality: Swelling of legs feeling tired and out of breath - Edema, Shortness of Breath, and Fatigue is exacerbated by exertion. - Edema, Shortness of Breath, and Fatigue is not exacerbated by laying down. - Symptoms are associated with nothing. - Symptoms are not associated with chest pain. - Improved by nothing. - Not improved by elevation. Patient currently not under the care of physician she used to be medication for blood pressure. PAST MEDICAL HISTORY Diagnosis Date - Abnormal electrocardiogram (ECG) (EKG) 09/10/2015 - Acute sinusitis - Acute upper respiratory infection - Asthma - Blood in urine - Bronchospasm - Candidiasis of mouth - Cellulitis of foot Left foot, plantar aspect of forefoot - Cellulitis of lower leg left - Cigarette smoker - Cramp in lower leg Both legs - Essential hypertension - Exacerbation of intermittent asthma - Globus sensation - Headache - Hyperlipidemia 10 year CHD risk is 10% - Hypothyroidism Dr. Argueta - Increased frequency of urination - Joint pain - Known medical problems 2+ pitting edema - Known medical problems Maculopapular eruption - Known medical problems O/E - edema of legs - Muscle pain - Nasal congestion - Nausea - Nontoxic single thyroid nodule - Numbness of hand - Obesity - Otalgia, right ear - Pain in female pelvis - Pain in lower limb - Paresthesia of hand right - Right flank pain - Shoulder pain - Smoker - Vertigo - Vitamin D deficiency PAST SURGICAL HISTORY Procedure Laterality Date - CHOLECYSTECTOMY - HYSTERECTOMY HX 2006 - TONSILLECTOMY HX removed when she was a child - TUBAL LIGATION HX FAMILY HISTORY Problem Relation Age of Onset - other (Dementia [Other]) Paternal Grandfather - other (Heart disease [Other]) Mother Social History Tobacco Use - Smoking status: Every Day Packs/day: 1.00 Types: Cigarettes - Smokeless tobacco: Never Vaping Use - Vaping Use: Never used Substance and Sexual Activity - Alcohol use: Yes Comment: yearly - Drug use: Yes Types: Marijuana Comment: rare - Sexual activity: Not on file Comment: No reported history ALLERGIES Allergen Reactions - Ciprofloxacin Swelling, Itching - Penicillins Hives Review of Systems Constitutional: Positive for fatigue. Negative for chills and fever. HENT: Negative for congestion and sore throat. Respiratory: Positive for shortness of breath. Negative for cough. Cardiovascular: Positive for leg swelling. Negative for chest pain and palpitations. Gastrointestinal: Negative for abdominal pain, nausea and vomiting. Skin: Negative for color change, pallor, rash and wound. Allergic/Immunologic: Negative for environmental allergies, food allergies and immunocompromised state. Neurological: Negative for syncope and light-headedness. Physical Exam Vitals [06/27/227] BP Pulse Temp Temp src Resp SpO2 Weight Height 180/79 88 36.6 ?C (97.8 ?F) Temporal 22 (!) 93 % 103.2 kg (227 lb 8.2 oz) 1.626 m (5' 4) Physical Exam Vitals reviewed. Constitutional: General: She is not in acute distress. Appearance: She is well-developed. She is not ill-appearing, toxic-appearing or diaphoretic. HENT: Head: Normocephalic and atraumatic. Pulmonary: Effort: Pulmonary effort is normal. No respiratory distress. Breath sounds: Normal breath sounds. Abdominal: Palpations: Abdomen is soft. Tenderness: There is no abdominal tenderness. Musculoskeletal: Cervical back: Normal range of motion and neck supple. Right lower leg: No tenderness. Edema present. Left lower leg: No tenderness. Edema present. Skin: General: Skin is warm and dry. Capillary Refill: Capillary refill takes less than 2 seconds. Findings: No rash. Neurological: General: No focal deficit present. Mental Status: She is alert and oriented to person, place, and time. Psychiatric: Mood and Affect: Mood normal. Mood is not anxious. Behavior: Behavior normal. Behavior is not agitated. Diagnostic Testing ED Labs Ordered and Reviewed - No data to display Procedures ED Course / Clinical Impression Clinical Impressions as of 06/27/22 2215 Peripheral edema Hypertension, unspecified type MDM / Disposition / Plan Mostly dependent edema noted on exam but patient says she h (more content not included)... Normal [facility] HIGH SENSITIVITY TROPONIN To n 06-28-2022 HIGH SENSITIVITY ZACK 10 ng/L Normal <12 [facility] Comment on above: Order Comment: Speci men Type: BLOOD SPECIMEN Ordering Facility: [facility] Address: [address] [place] [phone] Result Comment: When assessing risk for acute coronary syndromes: In patients undergoing blood draw greater than or equal to 2 hours from symptom onset, with history of very low to moderate risk and non-ischemic ECG, an initial hs-Troponin T less than 12 ng/L AND a 1 hour delta hs-Troponin T less than 3 ng/L should be considered very low risk for 30 day MACE. Performed By: #### H STNT #### [facility] CLIA [id number] [address] [place] [address] [facility] Magnesium [facility] 06-28 Magnesium [Mass/Vol] 2.0 mg/dL Normal 1.7-2.3 [facility] Comment on above: Order Comment: Mariana draper Type: BLOOD SPECIMEN Ordering Facility: [facility] Address: [address] [place] [address] Performed By: #### 2 4321-2, 73614-0, 29259-2 #### [facility] CLIA [id number] [address] [id number] [facility] NT-proBNP [facility] 06-28 Natriuretic peptide.B prohormone N-Terminal [Mass/Vol] 94 pg/mL Normal <125 [facility] Comment on above: Order Comment: Mariana draper Type: BLOOD SPECIMEN Ordering Facility: [facility] Address: [address] [place] [address] Performed By: #### 2 4321-2, 58787-9, 96911-0 #### [facility] CLIA [id number] [address] [place], [place] [id number] [facility] XR CHEST 1V FRONTALon 2022 XR CHEST 1V FRONTAL * * *Final Report* * * DATE OF EXAM: Jun 27 2022 11:16PM LDX 5290 - XR CHEST 1V FRONTAL / PROCEDURE REASON: Shortness of breath * * * * Physician Interpretation * * * * EXAM: XR CHEST 1V FRONTAL Exam Date/Time: 06/27/2022 11:16 PM CLINICAL HISTORY: Shortness of breath Comparison: 08/23/2021 RESULT: Lines, tubes, and devices: None. Lungs and pleura: Bilateral lung aquino are clear. No pneumothorax or suggestion for obvious/significant pleural effusions. Cardiomediastinal silhouette: Normal cardiomediastinal silhouette. IMPRESSION: No acute cardiopulmonary process. Digital Press Operator: PSCB Transcribe Date/Time: Jun 27 2022 11:17P Dictated by : VARINDER MCMANUS MD This examination was interpreted and the report reviewed and electronically signed by: VARINDER MCMANUS MD on Jun 27 2022 11:17PM EST [id number] Normal [facility] ED NOTEon 06-27-2022 ED NOTE HNO ID: [id number] Author: Aviva Bearden RN Service: Emergency Medicine Author Type: Registered Nurse Type: ED Notes Filed: 06/27/2022 9:50 PM Note Text: Patient reports feet are swollen, she feels short of breath and tired for 1 week. States she is supposed to be on blood pressure medicine but has not seen her PCP in 4 years. Normal [facility] CBC W Auto Differential pane l (Bld)on 12-26-2021 Basophils (Bld) [#/Vol] 0.03 10*3/uL Normal <0.11 [facility] Comment on above: Order Comment: Speci men Type: BLOOD SPECIMEN Ordering Facility: [facility] Address: [address] [place] [address] Performed By: #### 5 7021-8 #### [facility] CLIA [id number] [address] [place] [address] [place] Basophils/100 WBC (Bld) 0.4 % Normal [facility] Comment on above: Order Comment: Speci men Type: BLOOD SPECIMEN Ordering Facility: [facility] Address: [address] [address] Performed By: #### 5 7021-8 #### [facility] CLIA [id number] [address] [place] [address] [place] Differential cell count method Nom (Bld) Auto Normal [facility] Comment on above: Order Comment: Speci men Type: BLOOD SPECIMEN Ordering Facility: [facility] Address: [address] [address] Performed By: #### 5 7021-8 #### [facility] CLIA [id number] [address] [place] [address] [place] Eosinophils (Bld) [#/Vol] 0.20 10*3/uL Normal <0.46 [facility] Comment on above: Order Comment: Speci men Type: BLOOD SPECIMEN Ordering Facility: [facility] Address: [address] [place] [address] Performed By: #### 5 7021-8 #### [facility] CLIA [id number] [address] [place] [address] [place] Eosinophils/100 WBC (Bld) 2.4 % Normal [facility] Comment on above: Order Comment: Speci men Type: BLOOD SPECIMEN Ordering Facility: [facility] Address: [address] [place] [address] Performed By: #### 5 7021-8 #### [facility] CLIA [id number] [address] [place] Erythrocyte distribution width (RBC) [Ratio] 13.9 % Normal 11.5-15.0 [facility] Comment on above: Order Comment: Speci men Type: BLOOD SPECIMEN Ordering Facility: [facility] Address: [address] [place] [address] Performed By: #### 5 7021-8 #### [facility] CLIA [id number] [address] [id number] [place] Hematocrit (Bld) [Volume fraction] 48.8 % High 36.0-46.0 [facility] Comment on above: Order Comment: Speci men Type: BLOOD SPECIMEN Ordering Facility: [facility] Address: [address] [place] [address] Performed By: #### 5 7021-8 #### [facility] CLIA [id number] [address] [place] [address] [place] Hemoglobin (Bld) [Mass/Vol] 16.0 g/dL High 11.5-15.5 [facility] Comment on above: Order Comment: Speci men Type: BLOOD SPECIMEN Ordering Facility: [facility] Address: [address] [place] [address] Performed By: #### 5 7021-8 #### [facility] CLIA [id number] [address] OF [facility] Lymphocytes (Bld) [#/Vol] 2.47 10*3/uL Normal 1.00-4.00 [facility] Comment on above: Order Comment: Speci men Type: BLOOD SPECIMEN Ordering Facility: [facility] Address: [address] [place] [address] Performed By: #### 5 7021-8 #### [facility] CLIA [id number] [address] [place] Lymphocytes/100 WBC (Bld) 29.5 % Normal [facility] Comment on above: Order Comment: Speci men Type: BLOOD SPECIMEN Ordering Facility: [facility] Address: [address] [place] [address] Performed By: #### 5 7021-8 #### [facility] CLIA [id number] [address] [place] MCH (RBC) [Entitic mass] 31.4 pg Normal 26.0-34.0 [facility] Comment on above: Order Comment: Speci men Type: BLOOD SPECIMEN Ordering Facility: [facility] Address: [address] [place] [address] Performed By: #### 5 7021-8 #### [facility] CLIA [id number] [address] [place] MCHC (RBC) [Mass/Vol] 32.8 g/dL Normal 30.5-36.0 [facility] Comment on above: Order Comment: Speci men Type: BLOOD SPECIMEN Ordering Facility: [facility] Address: [address] [place] [address] Performed By: #### 5 7021-8 #### [facility] CLIA [id number] [address] [place] [address] [place] MCV (RBC) [Entitic vol] 95.7 fL Normal 80.0-100.0 [facility] Comment on above: Order Comment: Speci men Type: BLOOD SPECIMEN Ordering Facility: [facility] Address: [address] [place] [address] Performed By: #### 5 7021-8 #### [facility] CLIA [id number] [address] [place] [address] [place] Monocytes (Bld) [#/Vol] 0.67 10*3/uL Normal <0.87 [facility] Comment on above: Order Comment: Speci men Type: BLOOD SPECIMEN Ordering Facility: [facility] Address: [address] [place] [address] Performed By: #### 5 7021-8 #### [facility] CLIA [id number] [address] [place] Monocytes/100 WBC (Bld) 8.0 % Normal [facility] Comment on above: Order Comment: Speci men Type: BLOOD SPECIMEN Ordering Facility: [facility] Address: [address] [place] [address] Performed By: #### 5 7021-8 #### [facility] CLIA [id number] [address] [place] [address] [place] Neutrophils (Bld) [#/Vol] 5.01 10*3/uL Normal 1.45-7.50 [facility] Comment on above: Order Comment: Speci men Type: BLOOD SPECIMEN Ordering Facility: [facility] Address: [address] [place] [address] Performed By: #### 5 7021-8 #### [facility] CLIA [id number] [address] [place] Neutrophils/100 WBC (Bld) 59.7 % Normal [facility] Comment on above: Order Comment: Speci men Type: BLOOD SPECIMEN Ordering Facility: [facility] Address: [address] [place], [place] [address] Performed By: #### 5 7021-8 #### [facility] CLIA [id number] [address] [place] [address] [place] Platelet mean volume (Bld) [Entitic vol] 9.6 fL Normal 9.0-12.7 [facility] Comment on above: Order Comment: Speci men Type: BLOOD SPECIMEN Ordering Facility: [facility] Address: [address] [place], [place] [address] Performed By: #### 5 7021-8 #### [facility] CLIA [id number] [address] [place] [address] [place] Platelets (Bld) [#/Vol] 293 10*3/uL Normal 150-400 [facility] Comment on above: Order Comment: Speci men Type: BLOOD SPECIMEN Ordering Facility: [facility] Address: [address] [place] [address] Performed By: #### 5 7021-8 #### [facility] CLIA [id number] [address] [place] [address] [place] RBC (Bld) [#/Vol] 5.10 10*6/uL Normal 3.90-5.20 [facility] Comment on above: Order Comment: Speci men Type: BLOOD SPECIMEN Ordering Facility: [facility] Address: [address] [place], [place] [address] Performed By: #### 5 7021-8 #### [facility] CLIA [id number] [address] [place] [address] [place] WBC (Bld) [#/Vol] 8.38 10*3/uL Normal 3.70-11.00 [facility] Comment on above: Order Comment: Speci men Type: BLOOD SPECIMEN Ordering Facility: [facility] Address: [address] [place], [place] [address] Performed By: #### 5 7021-8 #### [facility] CLIA [id number] [address] [place] [address] [place] ABD/PEL WO IVCONon 2021 CT ABD/PEL WO IVCON * * *Final Report* * * DATE OF EXAM: Dec 26 2021 10:44AM [facility] 0531 - CT ABD/PEL WO IVCON / PROCEDURE REASON: LLQ abdominal pain * * * * Physician Interpretation * * * * EXAMINATION: CT ABDOMEN AND PELVIS WITHOUT IV CONTRAST CLINICAL HISTORY: Left lower quadrant pain left lower back pain TECHNIQUE: Non-IV contrast imaging of the abdomen and pelvis was performed using standard technique, scanning from just above the dome of the diaphragm to the symphysis pubis. Unenhanced imaging is limited for the evaluation of some intra-abdominal and pelvic pathology. MQ: CTAPWO_3 Contrast: IV: None : ml of CT Radiation dose: Integrated Dose-length product (DLP) for this visit = 902.61 mGy*cm. CT Dose Reduction Employed: Automated exposure control (AEC) COMPARISON: 10/20/2016 CT. RESULT: Abdomen / Pelvis: Liver: Moderate degree of fatty liver changes Biliary: Cholecystectomy. No bile duct dilatation Spleen: No splenomegaly. Pancreas: No CT evidence of pancreatitis Adrenals: No mass. Kidneys: No calculus, hydronephrosis or finding to suggest a cyst or mass in the unenhanced kidney. Stable mild prominent right extrarenal pelvis GI Tract: No bowel dilation. Mild degree of distal descending and sigmoid colon diverticulosis without diverticulitis . Redemonstration of muscular hypertrophy keenan of the distal descending and sigmoid colon. Redemonstration of submucosal fat deposition proximal colon/cecum. Appendix is normal axial image 94. Lymph Nodes: No lymphadenopathy. Mesentery/peritoneum: No ascites. Retroperitoneum: No mass. Vasculature: Mild arterial calcifications without aneurysm. Pelvis: No mass or ascites. Bones/Soft Tissues: No acute osseous abnormality. Mild diastases anterior abdominal wall musculature with small umbilical fat herniation, unchanged. No evidence of bowel entrapment. Moderate degree of degenerative central canal stenosis and foraminal stenosis greater left side at the L4-5 level axial image 98. Moderate left facet arthropathy sagittal image 109. Lower thorax: Unremarkable. IMPRESSION: 1. No significant change from 10/20/2016 CT. No acute abnormality is seen. 2.Mild degree of distal descending and sigmoid colon diverticulosis without diverticulitis 3.Moderate degree of degenerative central canal stenosis and foraminal stenosis greater left side at the L4-5 level axial image 98. Moderate left facet arthropathy sagittal image 109. Digital Press Operator: PSCB Transcribe Date/Time: Dec 26 2021 11:01A Dictated by : MINO MILLER MD This examination was interpreted and the report reviewed and electronically signed by: MINO MILLER MD on Dec 26 2021 11:10AM EST [id number] Normal [facility] Comprehensive metabolic 2000 panelon 12-26-2021 Albumin [Mass/Vol] 4.7 g/dL Normal 3.9-4.9 [facility] Comment on above: Order Comment: Speci men Type: BLOOD SPECIMEN Ordering Facility: [facility] Address: [address] [place] [address] Performed By: #### 3 040-3, 54793-0 #### [facility] CLIA [id number] [address] [place] [facility] ALP [Catalytic activity/Vol] 79 U/L Normal 34-123 [facility] Comment on above: Order Comment: Speci men Type: BLOOD SPECIMEN Ordering Facility: [facility] Address: [address] [place] [address] Performed By: #### 3 040-3, 49641-7 #### [facility] CLIA [id number] [address] [place] [address] [place] [facility] ALT With P-5'-P [Catalytic activity/Vol] 35 U/L Normal 7-38 [facility] Comment on above: Order Comment: Speci men Type: BLOOD SPECIMEN Ordering Facility: [facility] Address: [address] [place] [address] Performed By: #### 3 040-3, 87605-3 #### [facility] CLIA [id number] [address] [place], [place] [id number] [place] [address] [place] [facility] Anion gap [Moles/Vol] 10 mmol/L Normal 9-18 [facility] Comment on above: Order Comment: Speci men Type: BLOOD SPECIMEN Ordering Facility: [facility] Address: [address] [place] [address] Performed By: #### 3 -3, 01423-0 #### [facility] CLIA [id number] [address] [place] [address] [place] AST With P-5'-P [Catalytic activity/Vol] 27 U/L Normal 13-35 [facility] Comment on above: Order Comment: Speci men Type: BLOOD SPECIMEN Ordering Facility: [facility] Address: [address] [place] [address] Performed By: #### 3 -3, 65135-1 #### [facility] CLIA [id number] [address] [place] [address] [place] Bilirubin [Mass/Vol] 0.2 mg/dL Normal 0.2-1.3 [facility] Comment on above: Order Comment: Speci men Type: BLOOD SPECIMEN Ordering Facility: [facility] Address: [address] [place] [address] Performed By: #### 3 -3, 20307-7 #### [facility] CLIA [id number] [address] [place] [address] [place] Calcium [Mass/Vol] 10.5 mg/dL High 8.5-10.2 [facility] Comment on above: Order Comment: Speci men Type: BLOOD SPECIMEN Ordering Facility: [facility] Address: [address] [place] [address] Performed By: #### 3 040-3, 42613-4 #### [facility] CLIA [id number] [address] [place] [address] [place] Chloride [Moles/Vol] 100 mmol/L Normal 97-105 [facility] Comment on above: Order Comment: Speci men Type: BLOOD SPECIMEN Ordering Facility: [facility] Address: [address] [place] [address] Performed By: #### 3 040-3, 88547-9 #### [facility] CLIA [id number] [address] [place] [address] [place] CO2 [Moles/Vol] 30 mmol/L Normal 22-30 [facility] Comment on above: Order Comment: Specmaryuri draper Type: BLOOD SPECIMEN Ordering Facility: [facility] Address: [address] [place] [address] Performed By: #### 3 040-3, 04227-6 #### [facility] CLIA [id number] [address] OF [facility] Creatinine [Mass/Vol] 0.78 mg/dL Normal 0.58-0.96 [facility] Comment on above: Order Comment: Mariana men Type: BLOOD SPECIMEN Ordering Facility: [facility] Address: [address] [place] [address] Performed By: #### 3 040-3, 98058-5 #### [facility] CLIA [id number] [address] [place] [address] ESTIMATED GLOMERULAR FILTRATION RATE 91 mL/min/1.73m??? Normal >=60 [facility] Comment on above: Order Comment: Speci men Type: BLOOD SPECIMEN Ordering Facility: [facility] Address: [address] [place] [address] Result Comment: Leonila mated Glomerular Filtration Rate (eGFR) is calculated using the 2020 CKD-EPI creatinine equation. This equation utilizes serum creatinine, sex, and age as parameters. The creatinine assay has traceable calibration to isotope dilution-mass spectrometry. Refer to KDIGO guidelines for clinical interpretation. In patients with unstable renal function, e.g. those with acute kidney injury, the eGFR may not accurately reflect actual GFR. Performed By: #### 3 040-3, 27567-3 #### [facility] CLIA [id number] [address] STATES [place] [facility] Glucose [Mass/Vol] 108 mg/dL High 74-99 [facility] Comment on above: Order Comment: Speci men Type: BLOOD SPECIMEN Ordering Facility: [facility] Address: [address] [place] [address] Result Comment: The [place] Diabetes Association (ADA) provides guidance for cutoff values for fasting glucose and random glucose. The ADA defines fasting as no caloric intake for at least 8 hours. Fasting plasma glucose results between 100 to 125 mg/dL indicate increased risk for diabetes (prediabetes). Fasting plasma glucose results greater than or equal to 126 mg/dL meet the criteria for diagnosis of diabetes. In the absence of unequivocal hyperglycemia, results should be confirmed by repeat testing. In a patient with classic symptoms of hyperglycemia or hyperglycemic crisis, random plasma glucose results greater than or equal to 200 mg/dL meet the criteria for diagnosis of diabetes. Reference: Standards of Medical Care in Diabetes 2016, [place] Diabetes Association. Diabetes Care. 2016.39(Suppl 1). Performed By: #### 3 040-3, 41580-9 #### [facility] CLIA [id number] [address] [place] [address] [place] Potassium [Moles/Vol] 4.4 mmol/L Normal 3.7-5.1 [facility] Comment on above: Order Comment: Mariana draper Type: BLOOD SPECIMEN Ordering Facility: [facility] Address: [address] [place] [address] Performed By: #### 3 040-3, 47112-6 #### [facility] CLIA [id number] [address] [place] [address] [place] Protein [Mass/Vol] 8.0 g/dL Normal 6.3-8.0 [facility] Comment on above: Order Comment: Mariana men Type: BLOOD SPECIMEN Ordering Facility: [facility] Address: [address] [address] Performed By: #### 3 040-3, 88938-3 #### [facility] CLIA [id number] [address] [place] [address] [place] Sodium [Moles/Vol] 140 mmol/L Normal 136-144 [facility] Comment on above: Order Comment: Mariana men Type: BLOOD SPECIMEN Ordering Facility: [facility] Address: [address] [address] Performed By: #### 3 040-3, 72342-1 #### [facility] CLIA [id number] [address] [place] [address] [place] Urea nitrogen [Mass/Vol] 13 mg/dL Normal 7-21 [facility] Comment on above: Order Comment: Speci men Type: BLOOD SPECIMEN Ordering Facility: [facility] Address: [address] [place], [place] [address] Performed By: #### 3 040-3, 84762-1 #### [facility] CLIA [id number] [address] [place] [address] [facility] ED NOTEon 12-26-2021 ED NOTE HNO ID: [id number] Author: Tamra Betancourt RN Service: Emergency Medicine Author Type: Registered Nurse Type: ED Notes Filed: 12/26/2021 11:24 AM Note Text: Patient informed: Name of medication, why we are giving it, possible side effects, what they may expect to feel, and was offered a chance to ask questions prior to the administration of toradol. Patient verbalizes understanding and denies any further questions as this time. Normal [facility] ED NOTE HNO ID: [id number] Author: Tamra Betancourt RN Service: Emergency Medicine Author Type: Registered Nurse Type: ED Notes Filed: 12/26/2021 10:35 AM Note Text: Contacted radiology due to delay in treatment; Yudith with another patient at this time. Normal [facility] ED NOTE HNO ID: [id number] Author: Tamra Betancourt RN Service: Emergency Medicine Author Type: Registered Nurse Type: ED Notes Filed: 12/26/2021 9:45 AM Note Text: Pt reports back pain x 2 days. Pain woke pt from sleep at 0400 two days prior. Sharp pain to left lower back, radiating to left groin. Pt states my left leg felt like it was asleep. Pt reports that this has become intermittent; now tingly. Pt denies chronic back pain; does report falling in May -but pain was on right side. Denies loss of bowel or bladder function. Pt has not taken pain medication this morning; previously has taken Tylenol / Ibuprofen. Pt reports not having medical insurance so did not seek medical attention for this matter. Normal [facility] ED PROV NOTEon 12-26-2021 ED PROV NOTE HNO ID: [id number] Author: Helen Manzano DO Service: Emergency Medicine Author Type: Physician Type: ED Provider Notes Filed: 12/26/2021 12:13 PM Note Text: ED Provider Note Patient Name: Kaylynn Durán : 1970 SERVICE DATE: 12/26/21 History Patient presents with: Low Back Pain Kaylynn Durán is a 51 year old female with history of multiple chronic medical problems who presents with Low Back Pain. - Symptoms began 2 days prior to arrival. - Severity: moderate - Timing: constant - Quality: sharp and sore - Low Back Pain is exacerbated by certain movements and positions. - Low Back Pain is not exacerbated by rest. - Symptoms are associated with left lower abdominal pain, intermittent tingling in left leg, nausea. - Symptoms are not associated with chest pain, chills, diarrhea, fever, rash, shortness of breath, vomiting, dysuria, hematuria, weakness, numbness, bowel or bladder incontinence, saddle paresthesias, pain radiating down her legs. Patient states she was woken up at 4 AM two days ago with left lower back pain that comes around to her left lower abdomen. She states that her left leg intermittently feels tingly, but denies any pain radiating down her legs. She states the tingling occurs usually when she is in a sitting position. She denies any tingling currently. She denies pain in her legs. She denies weakness in her legs. She states that there has been no fall or injury. No dysuria or hematuria. She does feel nauseated with the pain, but no vomiting. She denies diarrhea. No chest pain or shortness of breath. She denies bowel or bladder incontinence or saddle paresthesias. She states that this pain is worse with certain positions and movement. PAST MEDICAL HISTORY Diagnosis Date Abnormal electrocardiogram (ECG) (EKG) 09/10/2015 Acute sinusitis Acute upper respiratory infection Asthma Blood in urine Bronchospasm Candidiasis of mouth Cellulitis of foot Left foot, plantar aspect of forefoot Cellulitis of lower leg left Cigarette smoker Cramp in lower leg Both legs Essential hypertension Exacerbation of intermittent asthma Globus sensation Headache Hyperlipidemia 10 year CHD risk is 10% Hypothyroidism Dr. Argueta Increased frequency of urination Joint pain Known medical problems 2+ pitting edema Known medical problems Maculopapular eruption Known medical problems O/E - edema of legs Muscle pain Nasal congestion Nausea Nontoxic single thyroid nodule Numbness of hand Obesity Otalgia, right ear Pain in female pelvis Pain in lower limb Paresthesia of hand right Right flank pain Shoulder pain Smoker Vertigo Vitamin D deficiency PAST SURGICAL HISTORY Procedure Laterality Date CHOLECYSTECTOMY HYSTERECTOMY HX 2007 TONSILLECTOMY HX removed when she was a child TUBAL LIGATION HX FAMILY HISTORY Problem Relation Age of Onset other (Dementia [Other]) Paternal Grandfather other (Heart disease [Other]) Mother Social History Tobacco Use Smoking status: Every Day Packs/day: 1.00 Types: Cigarettes Smokeless tobacco: Never Vaping Use Vaping Use: Never used Substance and Sexual Activity Alcohol use: Yes Comment: yearly Drug use: Yes Types: Marijuana Comment: rare Sexual activity: Not on file Comment: No reported history ALLERGIES Allergen Reactions Ciprofloxacin Swelling, Itching Penicillins Hives Review of Systems Constitutional: Negative for chills and fever. Respiratory: Negative for shortness of breath. Cardiovascular: Negative for chest pain. Gastrointestinal: Positive for abdominal pain and nausea. Negative for diarrhea and vomiting. Genitourinary: Positive for flank pain. Negative for dysuria, hematuria, pelvic pain, vaginal bleeding and vaginal discharge. Musculoskeletal: Positive for back pain. Negative for neck pain and neck stiffness. Skin: Negative for rash. Neurological: Negative for dizziness, weakness, numbness and headaches. + intermittent tingling in left leg - denies any currently Psychiatric/Behavioral: Negative for agitation and confusion. Physical Exam Vitals [12/26/21 0941] BP Pulse Temp Temp src Resp SpO2 Weight Height 191/101 74 36.3 ?C (97.3 ?F) Temporal 16 97 % 99.8 kg (220 lb) 1.626 m (5' 4) Physical Exam Vitals and nursing note reviewed. Constitutional: General: She is not in acute distress. Appearance: She is not ill-appearing, toxic-appearing or diaphoretic. HENT: Head: Normocephalic and atraumatic. Mouth/Throat: Mouth: Mucous membranes are moist. Eyes: Extraocular Movements: Extraocular movements intact. Conjunctiva/sclera: Conjunctivae normal. Pupils: Pupils are equal, round, and reactive to light. Cardiovascular: Rate and Rhythm: Normal rate and regular rhythm. Pulses: Normal pulses. Pulmonary: Effort: Pulmonary effort is normal. Breath sounds: Normal breath (more content not included)... Normal [facility] Lipase SerPl-cCncon 12-27-19 22 Lipase [Catalytic activity/Vol] 38 U/L Normal 16-61 [facility] Comment on above: Order Comment: Speci men Type: BLOOD SPECIMEN Ordering Facility: [facility] Address: [address] [address] Performed By: #### 3 040-3, 24847-5 #### [facility] CLIA [id number] [address] [place] Urinalysis complete panel (U )on 12-26-2021 Bilirubin Ql (U) Negative Normal Negative [facility] Comment on above: Order Comment: Speci men Type: BLOOD SPECIMEN Ordering Facility: [facility] Address: [address] [place] [address] Performed By: #### H STNT #### [facility] CLIA [id number] [address] [place] [address] [place] Clarity (Unsp spec) Clear Normal Clear [facility] Comment on above: Order Comment: Speci men Type: BLOOD SPECIMEN Ordering Facility: [facility] Address: [address] [address] Performed By: #### H STNT #### [facility] CLIA [id number] [address] [place] [address] [place] Color (U) Yellow Normal Yellow [facility] Comment on above: Order Comment: Speci men Type: BLOOD SPECIMEN Ordering Facility: [facility] Address: [address] [address] Performed By: #### H STNT #### [facility] CLIA [id number] [address] [place] Epithelial cells LM.HPF (Urine sed) [#/Area] Few Normal [facility] Comment on above: Order Comment: Speci men Type: BLOOD SPECIMEN Ordering Facility: [facility] Address: [address] [place] [address] Performed By: #### H STNT #### [facility] CLIA [id number] [address] [place] [address] [facility] Glucose Test strip (U) [Mass/Vol] Negative Normal Negative [facility] Comment on above: Order Comment: Speci men Type: BLOOD SPECIMEN Ordering Facility: [facility] Address: [address] [place] [address] Performed By: #### H STNT #### [facility] CLIA [id number] [address] [place] [address] [facility] Hemoglobin Ql (U) Trace Abnormal Negative [facility] Comment on above: Order Comment: Speci men Type: BLOOD SPECIMEN Ordering Facility: [facility] Address: [address] [place] [address] Performed By: #### H STNT #### [facility] CLIA [id number] [address] [place] [address] [facility] [place] Ketones Ql (U) Negative Normal Negative [facility] Comment on above: Order Comment: Speci men Type: BLOOD SPECIMEN Ordering Facility: [facility] Address: [address] [place] [address] Performed By: #### H STNT #### [facility] CLIA [id number] [address] [place] [address] [place] Leukocyte esterase Test strip Ql (U) Negative Normal Negative [facility] Comment on above: Order Comment: Speci men Type: BLOOD SPECIMEN Ordering Facility: [facility] Address: [address] [place] [address] Performed By: #### H STNT #### [facility] CLIA [id number] [address] [place] [address] [place] Nitrite Ql (U) Negative Normal Negative [facility] Comment on above: Order Comment: Speci men Type: BLOOD SPECIMEN Ordering Facility: [facility] Address: [address] [place] [address] Performed By: #### H STNT #### [facility] CLIA [id number] [address] [place] [address] [place] pH (U) 6.0 [pH] Normal 5.0-8.0 [facility] Comment on above: Order Comment: Speci men Type: BLOOD SPECIMEN Ordering Facility: [facility] Address: [address] [place] [address] Performed By: #### H STNT #### [facility] CLIA [id number] [address] [place] [address] [place] Protein (U) [Mass/Vol] Negative Normal Negative [facility] Comment on above: Order Comment: Speci men Type: BLOOD SPECIMEN Ordering Facility: [facility] Address: [address] [place] [address] Performed By: #### H STNT #### [facility] CLIA [id number] [address] [place] [address] [place] RBC LM.HPF (Urine sed) [#/Area] 0-3 /HPF Normal 0-3 /HPF [facility] Comment on above: Order Comment: Speci men Type: BLOOD SPECIMEN Ordering Facility: [facility] Address: [address] [place] [address] Performed By: #### H STNT #### [facility] CLIA [id number] [address] [place] [address] [place] Specific gravity (U) [Rel density] 1.020 Normal 1.005-1.030 [facility] Comment on above: Order Comment: Speci men Type: BLOOD SPECIMEN Ordering Facility: [facility] Address: [address] [place] [address] Performed By: #### H STNT #### [facility] CLIA [id number] [address] [place] [address] [place] Urobilinogen Ql (U) 0.2 EU/dL Normal 0.2-1.0 EU/dL [facility] Comment on above: Order Comment: Speci men Type: BLOOD SPECIMEN Ordering Facility: [facility] Address: [address] [place], [place] [address] Performed By: #### H STNT #### [facility] CLIA [id number] [address] [place], [place] [id number] [facility] WBC LM.HPF (Urine sed) [#/Area] 0-5 /HPF Normal 0-5 /HPF [facility] Comment on above: Order Comment: Speci men Type: BLOOD SPECIMEN Ordering Facility: [facility] Address: [address] [place], [place] [address] Performed By: #### H STNT #### [facility] CLIA [id number] [address] [place], [place] [id number] [facility] ED NOTEon 08-24-2021 ED NOTE HNO ID: [id number] Author: Rickey Black RN Service: Emergency Medicine Author Type: Registered Nurse Type: ED Notes Filed: 08/24/2021 1:03 AM Note Text: Patient discharge instructions given to patient, patient educated on discharge instructions. Patient denied having questions at this time regarding discharge instructions. Patient discharged home at this time. Patient ambulated out of the emergency department with a steady gait at this time. Normal [facility] ED NOTE HNO ID: [id number] Author: Rickey Black RN Service: Emergency Medicine Author Type: Registered Nurse Type: ED Notes Filed: 08/24/2021 12:47 AM Note Text: Physician at bedside. Normal [facility] ED PROV NOTEon 08-24-2021 ED PROV NOTE HNO ID: [id number] Author: José Miguel Shelby MD Service: Emergency Medicine Author Type: Physician Type: ED Provider Notes Filed: 08/24/2021 1:06 AM Note Text: ED Provider Note Patient Name: Kaylynn Durán : 1970 SERVICE DATE: 08/23/21 History Patient presents with: Shortness of Breath Edema Kaylynn Durán is a 51 year old female with history of hypertension who presents with shortness of breath. Patient has not had similar episodes of CHF exacerbation in the past. - Patient is not . - Patient does not require increased oxygen. - Symptoms began 1 weeks prior to arrival. Onset was gradual. - Severity: moderate - Timing: constant - Symptoms are exacerbated by exertion. - Symptoms are not exacerbated by allergies. - Symptoms are associated with bloated feeling and increased fatigue. - Symptoms are not associated with chest pain, coughing and dizziness. - Improved by nothing. - Not improved by rest Patient has a history of hypertension but she does not take any medications states that she cannot afford to see a doctor she has had previous ER visits and noted to have hypertension at that time as well. Over the past 5 to 7 days she has noted increasing difficulty with her breathing sensation of feeling bloated which she describes as having swollen legs and abdomen and face. Denies chest pain or chest heaviness.. PAST MEDICAL HISTORY Diagnosis Date - Abnormal electrocardiogram (ECG) (EKG) 09/10/2015 - Acute sinusitis - Acute upper respiratory infection - Asthma - Blood in urine - Bronchospasm - Candidiasis of mouth - Cellulitis of foot Left foot, plantar aspect of forefoot - Cellulitis of lower leg left - Cigarette smoker - Cramp in lower leg Both legs - Essential hypertension - Exacerbation of intermittent asthma - Globus sensation - Headache - Hyperlipidemia 10 year CHD risk is 10% - Hypothyroidism Dr. Argueta - Increased frequency of urination - Joint pain - Known medical problems 2+ pitting edema - Known medical problems Maculopapular eruption - Known medical problems O/E - edema of legs - Muscle pain - Nasal congestion - Nausea - Nontoxic single thyroid nodule - Numbness of hand - Obesity - Otalgia, right ear - Pain in female pelvis - Pain in lower limb - Paresthesia of hand right - Right flank pain - Shoulder pain - Smoker - Vertigo - Vitamin D deficiency PAST SURGICAL HISTORY Procedure Laterality Date - CHOLECYSTECTOMY - HYSTERECTOMY HX 2006 - TONSILLECTOMY HX removed when she was a child - TUBAL LIGATION HX FAMILY HISTORY Problem Relation Age of Onset - other (Dementia [Other]) Paternal Grandfather - other (Heart disease [Other]) Mother Social History Tobacco Use - Smoking status: Current Every Day Smoker Packs/day: 1.00 Types: Cigarettes - Smokeless tobacco: Never Used Vaping Use - Vaping Use: Never used Substance and Sexual Activity - Alcohol use: Yes Comment: yearly - Drug use: Yes Types: Marijuana Comment: rare - Sexual activity: Not on file Comment: No reported history ALLERGIES Allergen Reactions - Ciprofloxacin Swelling, Itching - Penicillins Hives Review of Systems Constitutional: Positive for fatigue. Negative for chills and fever. HENT: Negative for congestion, sore throat and trouble swallowing. Eyes: Negative for photophobia and visual disturbance. Respiratory: Positive for shortness of breath. Negative for wheezing. Cardiovascular: Positive for leg swelling. Negative for chest pain and palpitations. Gastrointestinal: Negative for abdominal pain, nausea and vomiting. Skin: Negative for color change, pallor, rash and wound. Allergic/Immunologic: Negative for environmental allergies, food allergies and immunocompromised state. Neurological: Negative for light-headedness and headaches. Psychiatric/Behavioral: Negative for confusion. The patient is not nervous/anxious. Physical Exam Vitals [08/23/21 2335] BP Pulse Temp Temp src Resp SpO2 Weight Height 195/103 77 37.3 ?C (99.1 ?F) Temporal 20 97 % 90.7 kg (200 lb) 1.626 m (5' 4) Physical Exam Vitals and nursing note reviewed. Constitutional: General: She is not in acute distress. Appearance: She is well-developed. She is not ill-appearing, toxic-appearing or diaphoretic.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 with food.Apply warm compresses to the affected area 3 times a day. Signatures Electronically signed by : Ochoa Spears MD; Mar 11 2018 12:41PM EST (Author) Normal [facility] Vital Signs Date Time Vital Sign Value Performing Clinician Vedai lity 09-15-2024 11:52-0400 Body height 157.5 cm Nathan Licea MD Work Phone: [facility] 09-15-2024 11:52-0400 Body mass index (BMI) [Ratio] 38.41 kg/m2 Nathan Licea MD Work Phone: [facility] 09-15-2024 11:52-0400 Body weight 95.25 kg Nathan Licea MD Work Phone: [facility] 09-15-2024 11:52-0400 Diastolic blood pressure 95 mm[Hg] Nathan Licea MD Work Phone: [facility] 09-15-2024 11:52-0400 Heart rate 69 /min Nathan Licea MD Work Phone: [facility] 09-15-2024 11:52-0400 Respiratory rate 16 /min Nathan Licea MD Work Phone: [facility] 09-15-2024 11:52-0400 SaO2% (BldA) [Mass fraction] 100 % Nathan Licea MD Work Phone: [facility] 09-15-2024 11:52-0400 Systolic blood pressure 187 mm[Hg] Nathan Licea MD Work Phone: [facility] 09-15-2024 11:51-0400 Body temperature 97.11 [degF] Nathan Licea MD Work Phone: [facility] 03-23-2024 23:55-0500 Body height 162.6 cm Lindsey Malcolm DO Work Phone: [facility] 03-23-2024 23:55-0500 Body mass index (BMI) [Ratio] 39.82 kg/m2 Lindsey Malcolm DO Work Phone: [facility] 03-23-2024 23:55-0500 Body temperature 98.2 [degF] Lindsey Malcolm DO Work Phone: [facility] 03-23-2024 23:55-0500 Body weight 105.23 kg Lindsey Malcolm DO Work Phone: [facility] 03-23-2024 23:55-0500 Diastolic blood pressure 70 mm[Hg] Lindsey Malcolm DO Work Phone: [facility] 03-23-2024 23:55-0500 Heart rate 76 /min Lindsey Malcolm DO Work Phone: [facility] 03-23-2024 23:55-0500 Respiratory rate 20 /min Lindsey Malcolm DO Work Phone: [facility] 03-23-2024 23:55-0500 SaO2% (BldA) [Mass fraction] 95 % Lindsey Malcolm DO Work Phone: [facility] 03-23-2024 23:55-0500 Systolic blood pressure 161 mm[Hg] Lindsey Malcolm DO Work Phone: [facility] 03-03-2024 12:51-0500 Body mass index (BMI) [Ratio] 38.28 kg/m2 Trev Sampson MD Work Phone: [facility] 03-03-2024 12:51-0500 Body weight 101.15 kg Trev Sampson MD Work Phone: [facility] 03-03-2024 12:51-0500 Diastolic blood pressure 79 mm[Hg] Trev Sampson MD Work Phone: [facility] 03-03-2024 12:51-0500 Heart rate 69 /min Trev Sampson MD Work Phone: [facility] 03-03-2024 12:51-0500 SaO2% (BldA) [Mass fraction] 92 % Trev Sampson MD Work Phone: [facility] 03-03-2024 12:51-0500 Systolic blood pressure 132 mm[Hg] Trev Sampson MD Work Phone: [facility] 12-17-2023 22:37-0400 Body height 162.6 cm Alexis Nesheim DO Work Phone: [employer] 12-17-2023 22:37-0400 Body mass index (BMI) [Ratio] 36.9 kg/m2 Alexis Nesheim DO Work Phone: [employer] 12-17-2023 22:37-0400 Body temperature 98.1 [degF] Alexis Nesheim DO Work Phone: [employer] 12-17-2023 22:37-0400 Body weight 97.52 kg Alexis Nesheim DO Work Phone: [employer] 12-17-2023 22:37-0400 Diastolic blood pressure 66 mm[Hg] Alexis Nesheim DO Work Phone: [employer] 12-17-2023 22:37-0400 Heart rate 84 /min Alexis Nesheim DO Work Phone: [employer] 12-17-2023 22:37-0400 Respiratory rate 16 /min Alexis Nesheim DO Work Phone: [employer] 12-17-2023 22:37-0400 SaO2% (BldA) [Mass fraction] 97 % Alexis Nesheim DO Work Phone: [employer] 12-17-2023 22:37-0400 Systolic blood pressure 164 mm[Hg] Alexis Nesheim DO Work Phone: [employer] 11-16-2023 09:41-0400 Body mass index (BMI) [Ratio] 37.08 kg/m2 Trev Sampson MD Work Phone: [employer] 11-16-2023 09:41-0400 Body weight 97.98 kg Trev Sampson MD Work Phone: [employer] 11-16-2023 09:41-0400 Diastolic blood pressure 68 mm[Hg] Trev Sampson MD Work Phone: [employer] 11-16-2023 09:41-0400 Heart rate 58 /min Trev Sampson MD Work Phone: [employer] 11-16-2023 09:41-0400 SaO2% (BldA) [Mass fraction] 93 % Trev Sampson MD Work Phone: [facility] 11-16-2023 09:41-0400 Systolic blood pressure 105 mm[Hg] Trev Sampson MD Work Phone: [facility] 09-21-2023 08:54-0400 Body height 162.6 cm Margarita Corbin MD Work Phone: [facility] 09-21-2023 08:54-0400 Body mass index (BMI) [Ratio] 37.9 kg/m2 Margarita Corbin MD Work Phone: [facility] 09-21-2023 08:54-0400 Body weight 100.15 kg Margarita Corbin MD Work Phone: [facility] 09-21-2023 08:54-0400 Diastolic blood pressure 74 mm[Hg] Margarita Corbin MD Work Phone: [facility] 09-21-2023 08:54-0400 Heart rate 74 /min Margarita Corbin MD Work Phone: [facility] 09-21-2023 08:54-0400 Respiratory rate 16 /min Margarita Corbin MD Work Phone: [facility] 09-21-2023 08:54-0400 SaO2% (BldA) [Mass fraction] 93 % Margartia Corbin MD Work Phone: [facility] 09-21-2023 08:54-0400 Systolic blood pressure 118 mm[Hg] Margarita Corbin MD Work Phone: [facility] 09-03-2023 11:52-0400 Body height 162.6 cm Elly Bowie APR N - COST AND RISK ANALYSIS MANAGER Work Phone: [facility] 09-03-2023 11:52-0400 Body mass index (BMI) [Ratio] 38.11 kg/m2 Elly Bowie APRN - COST AND RISK ANALYSIS MANAGER Work Phone: [facility] 09-03-2023 11:52-0400 Body temperature 98.1 [degF] Elly Bowie APR N - COST AND RISK ANALYSIS MANAGER Work Phone: [facility] 09-03-2023 11:52-0400 Body weight 100.7 kg Elly Bowie APR N - COST AND RISK ANALYSIS MANAGER Work Phone: [facility] 09-03-2023 11:52-0400 Diastolic blood pressure 72 mm[Hg] Elly Bowie MUSIC PUBLICIST - COST AND RISK ANALYSIS MANAGER Work Phone: [facility] 09-03-2023 11:52-0400 Heart rate 69 /min Elly Bowie APR N - COST AND RISK ANALYSIS MANAGER Work Phone: [facility] 09-03-2023 11:52-0400 SaO2% (BldA) [Mass fraction] 94 % Elly Bowie MUSIC PUBLICIST - COST AND RISK ANALYSIS MANAGER Work Phone: [facility] 09-03-2023 11:52-0400 Systolic blood pressure 124 mm[Hg] Elly Bowie MUSIC PUBLICIST - COST AND RISK ANALYSIS MANAGER Work Phone: [facility] 08-01-2023 18:00-0400 Diastolic blood pressure 53 mm[Hg] Brandon Mudrakola DO Work Phone: [facility] 08-01-2023 18:00-0400 Heart rate 72 /min Brandon Mudrakola DO Work Phone: [facility] 08-01-2023 18:00-0400 Respiratory rate 17 /min Brandon Mudrakola DO Work Phone: [facility] 08-01-2023 18:00-0400 SaO2% (BldA) [Mass fraction] 93 % Brandon Mudrakola DO Work Phone: [facility] 08-01-2023 18:00-0400 Systolic blood pressure 101 mm[Hg] Brandon Mudrakola DO Work Phone: [facility] 08-01-2023 16:49-0400 Body temperature 98.2 [degF] Brandon Mudrakola DO Work Phone: [facility] 07-30-2023 12:56-0400 Diastolic blood pressure 88 mm[Hg] Elly Bowie MUSIC PUBLICIST - COST AND RISK ANALYSIS MANAGER Work Phone: [facility] 07-30-2023 12:56-0400 Systolic blood pressure 158 mm[Hg] Elly Bowie MUSIC PUBLICIST - COST AND RISK ANALYSIS MANAGER Work Phone: [facility] 07-30-2023 11:57-0400 Body height 162.6 cm Elly Bowie APR N - COST AND RISK ANALYSIS MANAGER Work Phone: [facility] 07-30-2023 11:57-0400 Body mass index (BMI) [Ratio] 38.28 kg/m2 Elly Bowie MUSIC PUBLICIST - COST AND RISK ANALYSIS MANAGER Work Phone: [facility] 07-30-2023 11:57-0400 Body weight 101.15 kg Elly Bowie APR N - COST AND RISK ANALYSIS MANAGER Work Phone: [facility] 07-30-2023 11:57-0400 Heart rate 66 /min Elly Bowie APR N - COST AND RISK ANALYSIS MANAGER Work Phone: [facility] 07-30-2023 11:57-0400 SaO2% (BldA) [Mass fraction] 97 % Elly Bowie MUSIC PUBLICIST - COST AND RISK ANALYSIS MANAGER Work Phone: [facility] 10-16-2022 10:14-0400 Body height 162.6 cm Trev Sampson MD Work Phone: [facility] 10-16-2022 10:14-0400 Body mass index (BMI) [Ratio] 37.59 kg/m2 Trev Sampson MD Work Phone: [facility] 10-16-2022 10:14-0400 Body weight 99.34 kg Trev Sampson MD Work Phone: [facility] 10-16-2022 10:14-0400 Diastolic blood pressure 79 mm[Hg] Trev Sampson MD Work Phone: [facility] 10-16-2022 10:14-0400 Heart rate 74 /min Trev Sampson MD Work Phone: [facility] 10-16-2022 10:14-0400 Respiratory rate 16 /min Trev Sampson MD Work Phone: [facility] 10-16-2022 10:14-0400 SaO2% (BldA) [Mass fraction] 95 % Trev Sampson MD Work Phone: [facility] 10-16-2022 10:14-0400 Systolic blood pressure 126 mm[Hg] Trev Sampson MD Work Phone: [facility] 07-14-2022 10:14-0400 Body height 162.6 cm Elly Bowie APR N - COST AND RISK ANALYSIS MANAGER Work Phone: [facility] 07-14-2022 10:14-0400 Body mass index (BMI) [Ratio] 38.62 kg/m2 Elly Bowie MUSIC PUBLICIST - COST AND RISK ANALYSIS MANAGER Work Phone: [facility] 07-14-2022 10:14-0400 Body weight 102.06 kg Elly Bowie APR N - COST AND RISK ANALYSIS MANAGER Work Phone: [facility] 07-14-2022 10:14-0400 Diastolic blood pressure 74 mm[Hg] Elly Bowie MUSIC PUBLICIST - COST AND RISK ANALYSIS MANAGER Work Phone: [facility] 07-14-2022 10:14-0400 Heart rate 65 /min Elly Bowie APR N - COST AND RISK ANALYSIS MANAGER Work Phone: [facility] 07-14-2022 10:14-0400 SaO2% (BldA) [Mass fraction] 94 % Elly Bowie MUSIC PUBLICIST - COST AND RISK ANALYSIS MANAGER Work Phone: [facility] 07-14-2022 10:14-0400 Systolic blood pressure 128 mm[Hg] Elly Bowie MUSIC PUBLICIST - COST AND RISK ANALYSIS MANAGER Work Phone: [facility] Encounters Encounter Date Encounter Type Care Provider Facility Start: 09-15-2024 End: 09-15-2024 Emergency department patient visit Nathan Licea MD Work Phone: [facility] ED Comment on above: Cellulitis of right lower extremity (Primary Dx); Hypertension, unspecified type Start: 08-02-2024 End: 08-04-2024 Refill Elly Bowie MUSIC PUBLICIST - COST AND RISK ANALYSIS MANAGER Work Phone: [facility] Comment on above: Mixed hyperlipidemia ; Impaired fasting glucose; Non-seasonal allergic rhinitis due to other allergic trigger; Mild intermittent asthma without complication Start: 04-28-2024 End: 04-28-2024 Emergency department patient visit [place] Facility:[facility] Start: 04-01-2024 End: 04-01-2024 Telephone encounter Trev Sampson MD Work Phone: [facility] Comment on above: Other (Scheduling) Start: 03-23-2024 End: 03-24-2024 Emergency department patient visit Lindsey Malcolm DO Work Phone: [facility] ED Comment on above: Leg swelling (Primar y Dx) Start: 03-03-2024 End: 03-03-2024 Office outpatient visit 25 minutes Trev Sampson MD Work Phone: [facility] Comment on above: Primary hypertension (Primary Dx); Vertigo; Mixed hyperlipidemia; Cellulitis of right hand; Cigarette smoker Start: 03-03-2024 End: 03-03-[address] [facility] Start: 12-17-2023 End: 12-17-2023 Subsequent hospital visit by physician [facility] Radiology Comment on above: Arrived Start: 12-17-2023 End: 12-17-2023 Emergency department patient visit Alexis Gale DO Work Phone: [facility] ED Comment on above: Right elbow pain (Pr imary Dx) Start: 11-22-2023 End: 11-22-2023 Orders Only Elly Bowie MUSIC PUBLICIST - COST AND RISK ANALYSIS MANAGER Work Phone: [facility] Comment on above: Postablative hypothy roidism (Primary Dx) Start: 11-16-2023 End: 11-16-2023 Office outpatient visit 15 minutes Trev Sampson MD Work Phone: [facility] Comment on above: Blister (Primary Dx) Start: 11-16-2023 End: 11-16-2023 ambulatory TREV SAMPSON [facility] Start: 11-15-2023 End: 11-20-2023 ambulatory Mary Dumas RN [facility] Clinical Communication Start: 11-15-2023 End: 11-20-2023 Patient encounter procedure Mary Dumas RN [facility] Clinical Communication Start: 10-04-2023 End: 10-27-2023 Telephone encounter Margarita Corbin MD Work Phone: [facility] Comment on above: Patient Insurance Co nsidered Non-Contracted Start: 09-21-2023 End: 09-21-2023 Office outpatient new 45 minutes Margarita Corbin MD Work Phone: [facility] Comment on above: Shortness of breath (Primary Dx); Atypical chest pain; Snoring; Primary hypertension; Mixed hyperlipidemia Start: 09-21-2023 End: 09-21-2023 ambulatory [facility] Start: 09-03-2023 End: 09-03-2023 Office outpatient visit 25 minutes Elly Bowie MUSIC PUBLICIST - COST AND RISK ANALYSIS MANAGER Work Phone: [facility] Comment on above: Chronic right-sided low back pain with right-sided sciatica (Primary Dx); Venous insufficiency of both lower extremities; Postablative hypothyroidism; Mixed hyperlipidemia; Essential hypertension Start: 09-02-2023 Refill Elly henao MUSIC PUBLICIST - COST AND RISK ANALYSIS MANAGER Work Phone: [facility] Comment on above: Acquired hypothyroid ism Start: 09-01-2023 Raul Hutchison [facility] Start: 08-27-2023 Telephone encounter Helen Lara RN [facility] Comment on above: Colon Cancer Screeni ng; Colonoscopy (Screening colonoscopy ) Start: 08-01-2023 End: 08-01-2023 Emergency department patient visit Brandon Lim DO Work Phone: [facility] Comment on above: Atypical chest pain (Primary Dx); Other fatigue; Acute non intractable tension-type headache Start: 08-01-2023 End: 08-01-2023 Orders Only Elly Bowie MUSIC PUBLICIST - COST AND RISK ANALYSIS MANAGER Work Phone: [facility] Comment on above: Acquired hypothyroid ism (Primary Dx); Impaired fasting glucose; Mixed hyperlipidemia Arrived Start: 07-30-2023 End: 07-30-2023 Periodic preventive med est patient 40-64yrs Elly Bowie APRN - COST AND RISK ANALYSIS MANAGER Work Phone: [facility] Comment on above: Non-seasonal allergi c rhinitis due to other allergic trigger (Primary Dx); Mild intermittent asthma without complication; Primary hypertension; Abdominal bloating; Screening for colon cancer; Encounter for screening mammogram for malignant neoplasm of breast; Class 2 obesity due to excess calories without serious comorbidity with body mass index (BMI) of 38.0 to 38.9 in adult; Venous insufficiency of both lower extremities; Encounter for routine adult physical exam with abnormal findings; Cigarette nicotine dependence without complication; Acquired hypothyroidism; Vertigo; Chest pain in adult; Mixed hyperlipidemia; Chronic right-sided low back pain with bilateral sciatica Start: 07-30-2023 End: 07-30-2023 Physical examination Elly Bowie MUSIC PUBLICIST - COST AND RISK ANALYSIS MANAGER Work Phone: [facility] Start: 06-28-2023 Refill Elly henao APRN - COST AND RISK ANALYSIS MANAGER Work Phone: [facility] Comment on above: Primary hypertension ; Mixed hyperlipidemia Start: 05-28-2023 Refill Elly henao MUSIC PUBLICIST - COST AND RISK ANALYSIS MANAGER Work Phone: [facility] Comment on above: Acquired hypothyroid ism Start: 01-16-2023 Refill Sonya Arriaga PA-C Work Phone: [facility] Comment on above: Acquired hypothyroid ism Start: 10-16-2022 End: 10-16-2022 Office outpatient visit 15 minutes Trev Sampson MD Work Phone: [facility] Comment on above: Allergy, initial enc ounter (Primary Dx); Mild intermittent asthma without complication Start: 10-09-2022 Emergency department patient visit [facility] Facility:[facility] Start: 09-07-2022 Orders Only Elly henao MUSIC PUBLICIST - COST AND RISK ANALYSIS MANAGER Work Phone: [facility] Comment on above: Acquired hypothyroid ism Start: 07-14-2022 End: 07-14-2022 Initial preventive medicine new patient 40-64yrs Elly Bowie MUSIC PUBLICIST - COST AND RISK ANALYSIS MANAGER Work Phone: [facility] Comment on above: Screening for diabet es mellitus (Primary Dx); Primary hypertension; Screening for lipid disorders; Screening for thyroid disorder; Class 2 obesity due to excess calories without serious comorbidity with body mass index (BMI) of 38.0 to 38.9 in adult; Encounter for routine adult physical exam with abnormal findings; Venous insufficiency of both lower extremities; Cigarette nicotine dependence without complication Start: 07-14-2022 End: 07-14-2022 Physical examination Elly Bowie MUSIC PUBLICIST - COST AND RISK ANALYSIS MANAGER Work Phone: [facility] Start: 06-27-2022 End: 06-28-2022 Emergency department patient visit JOSÉ MIGUEL SHELBY Facility:[facility] Start: 12-26-2021 End: 12-26-2021 Emergency department patient visit [facility] Facility:[facility] Procedures Date Procedure Procedure Detail Performing Clinician Start: 12-17-2023 Radex elbow complete minimum 3 views Alexis Gale DO Work Phone: Start: 11-16-2023 Thyrotropin [Units/v olume] in Serum or Plasma Trev Sampson MD Work Phone: Start: 08-01-2023 Ct head/brain w/o co ntrast material Brandon Katerin DO Work Phone: Start: 08-01-2023 Radiologic exam ches t single view Brandon Lim DO Work Phone: Start: 08-01-2023 Basic metabolic pane l calcium total Brandon Lim DO Work Phone: Start: 08-01-2023 Urinalysis complete panel - Urine Brandon Lim DO Work Phone: Start: 08-01-2023 Urnls dip stick/tabl et rgnt auto w/o microscopy Brandon Lim DO Work Phone: Start: 08-01-2023 Ecg routine ecg w/le ast 12 lds trcg only w/o i&r Brandon Lim DO Work Phone: Start: 07-30-2023 Ecg routine ecg w/le ast 12 lds w/i&r Elly Bowie MUSIC PUBLICIST - COST AND RISK ANALYSIS MANAGER Work Phone: Start: 07-30-2023 Lipid 1996 panel - S sandra or Plasma Brandon Lim DO Work Phone: Start: 07-30-2023 Thyrotropin [Units/v olume] in Serum or Plasma Brandon Lim DO Work Phone: Start: 12-22-2022 Thyrotropin [Units/v olume] in Serum or Plasma Sonya Arriaga PA-C Work Phone: Start: 09-04-2022 Thyrotropin [Units/v olume] in Serum or Plasma Elly Bowie MUSIC PUBLICIST - COST AND RISK ANALYSIS MANAGER Work Phone: Start: 07-17-2022 Lipid 1996 panel - S sandra or Plasma Elly Bowie MUSIC PUBLICIST - COST AND RISK ANALYSIS MANAGER Work Phone: Plan of Treatment Date Care Activity Detail Author Start: 2043 RSV Immunization for Adults (1 - 1-dose 75+ series) RSV Immunization for Adults (1 - 1-dose 75+ series) [facility] Start: 07-29-2028 Lipid panel Lipid Panel [facility] Start: 12-02-2028 RSV Immunization age d 60 or older (1 - 1-dose 60+ series) RSV Immunization aged 60 or older (1 - 1-dose 60+ series) [facility] Start: 07-18-2027 Lipid panel Lipid Panel [facility] Start: 11-15-2026 Diabetes mellitus screening Diabetes Screening [facility] Start: 07-29-2026 Diabetes mellitus screening Diabetes Screening [facility] Start: 07-17-2025 Diabetes mellitus screening Diabetes Screening [facility] Start: 11-15-2024 Thyroid stimulating hormone measurement TSH Level [facility] Start: 09-26-2024 End: 09-26-2024 Patient encounter procedure [facility] Start: 07-29-2024 Thyroid stimulating hormone measurement TSH Level [facility] Start: 03-17-2024 End: 03-17-2024 Patient encounter procedure [facility] Start: 03-03-2024 End: 03-03-2025 CT Chest for screening WO contrast CT lung screening low dose Imaging Routine Cigarette smoker Expected: 03/03/2024, Expires: 03/03/2025 [facility] Work Phone: Comment on above: Expected: 03/03/2024 , Expires: 03/03/2025 Start: 03-03-2024 End: 03-03-2024 Patient encounter procedure [facility] Start: 02-22-2024 End: 11-21-2024 Thyrotropin [Units/volume] in Serum or Plasma TSH Lab Routine Postablative hypothyroidism Expected: 02/22/2024 (Approximate), Expires: 11/21/2024 [facility] Work Phone: Comment on above: Expected: 02/22/2024 (Approximate), Expires: 11/21/2024 Start: 12-23-2023 Thyroid stimulating hormone measurement TSH Level [facility] Start: 12-20-2023 End: 12-20-2023 Patient encounter procedure 12/20/2023 1:40 PM EDT Appointment [facility] [address] [place] [address] [facility] [address] Start: 12-05-2023 COVID-19 Vaccine ( season) COVID-19 Vaccine () [facility] Start: 12-05-2023 COVID-19 Vaccine ( season) COVID-19 Vaccine () [facility] Start: 12-05-2023 Influenza vaccination S [facility] Start: 10-31-2023 End: 07-31-2024 Hemoglobin A1c measurement Hemoglobin A1c Lab Routine Impaired fasting glucose Expected: 10/31/2023 (Approximate), Expires: 07/31/2024 [facility] Work Phone: Comment on above: Expected: 10/31/2023 (Approximate), Expires: 07/31/2024 Start: 10-31-2023 End: 07-31-2024 Thyrotropin [Units/volume] in Serum or Plasma TSH Lab Routine Acquired hypothyroidism Expected: 10/31/2023 (Approximate), Expires: 07[facility] Comment on above: Expected: 10/31/2023 (Approximate), Expires: 07/31/2024 Start: 10-29-2023 End: 10-29-2023 Patient encounter procedure 10/29/2023 10:00 AM EDT Appointment [facility] [address] [place] [phone] [facility] Start: 09-21-2023 End: 09-20-2024 CTA Heart and Coronary arteries WO and W contrast IV CTA HEART CORONARY ANGIOGRAM WITH PROV FFR-CT Imaging Routine Atypical chest pain Shortness of breath Expected: 09/21/2023, Expires: 09/20/2024 [facility] Comment on above: Expected: 09/21/2023 , Expires: 09/20/2024 Start: 09-21-2023 End: 09-20-2025 US Heart Transthoracic Transthoracic echocardiogram (TTE) complete with contrast, bubble, strain, and 3D PRN CV Echocardiography Routine Shortness of breath Expected: 09/21/2023 (Approximate), Expires: 09/20/2025 [employer] Work Phone: Comment on above: Expected: 09/21/2023 (Approximate), Expires: 09/20/2025 Start: 09-21-2023 End: 09-21-2023 Patient encounter procedure 09/21/2023 9:00 AM EDT Office Visit [facility] [address] [place] [id number] Margarita Corbin MD [address] [place] [address] [facility] Start: 09-10-2023 End: 09-10-2023 ambulatory 09/10/2023 12:30 PM EDT Evaluation [facility] at [facility] [address] [place] [phone] Tess Steinberg, PT [facility] Start: 09-05-2023 Thyroid stimulating hormone measurement TSH Level [facility] Start: 09-03-2023 End: 09-03-2023 Patient encounter procedure 09/03/2023 12:00 PM EDT Office Visit [facility] [address] [place] [phone] Elly Bowie, MUSIC PUBLICIST - COST AND RISK ANALYSIS MANAGER [address] [place] [address] [facility] Start: 07-30-2023 End: 07-29-2024 CBC panel - Blood by Automated count CBC Lab Routine Encounter for routine adult physical exam with abnormal findings Expected: 07/30/2023 (Approximate), Expires: 07/29/2024 [facility] Comment on above: Expected: 07/30/2023 (Approximate), Expires: 07/29/2024 Start: 07-30-2023 End: 07-29-2024 Comprehensive metabolic 1998 panel - Serum or Plasma Comprehensive metabolic panel Lab Routine Primary hypertension Expected: 07/30/2023 (Approximate), Expires: 07/29/2024 [facility] Comment on above: Expected: 07/30/2023 (Approximate), Expires: 07/29/2024 Start: 07-30-2023 End: 09-28-2024 DBT Breast - bilateral screening Bilateral screening mammogram with tomosynthesis Imaging Routine Encounter for screening mammogram for malignant neoplasm of breast Expected: 07/30/2023, Expires: 09/28/2024 [facility] Work Phone: Comment on above: Expected: 07/30/2023 , Expires: 09/28/2024 Start: 07-30-2023 End: 07-29-2024 Hemoglobin A1c measurement Hemoglobin A1c Lab Routine Encounter for routine adult physical exam with abnormal findings Expected: 07/30/2023 (Approximate), Expires: 07/29/2024 [facility] Comment on above: Expected: 07/30/2023 (Approximate), Expires: 07/29/2024 Start: 07-30-2023 End: 07-29-2024 Lipid 1996 panel - Serum or Plasma Lipid panel Lab Routine Mixed hyperlipidemia Expected: 07/30/2023 (Approximate), Expires: 07/29/2024 [facility] Comment on above: Expected: 07/30/2023 (Approximate), Expires: 07/29/2024 Start: 07-30-2023 End: 07-29-2024 Thyrotropin [Units/volume] in Serum or Plasma TSH Lab Routine Acquired hypothyroidism Expected: 07/30/2023 (Approximate), Expires: 07/29/2024 [facility] Comment on above: Expected: 07/30/2023 (Approximate), Expires: 07/29/2024 Start: 07-23-2023 End: 07-23-2023 Patient encounter procedure 07/23/2023 12:00 PM EDT Office Visit [facility] [address] [place] [address] [place] [phone] Elly Bowie, MUSIC PUBLICIST - COST AND RISK ANALYSIS MANAGER [address] [place] [address] [place] [address] [facility] Start: 12-04-2022 COVID-19 Vaccine ( season) COVID-19 Vaccine ( season) [facility] Start: 12-04-[address] [facility] Start: 10-19-2022 End: 09-08-2023 Thyrotropin [Units/volume] in Serum or Plasma TSH Lab Routine Acquired hypothyroidism Expected: 10/19/2022 (Approximate), Expires: 09/08/2023 [employer] Work Phone: Comment on above: Expected: 10/19/2022 (Approximate), Expires: 09/08/2023 Start: 10-16-2022 End: 10-16-2022 Patient encounter procedure 10/16/2022 Office Visit Family Medicine Trev Sampson MD [facility] [address] [address] [facility] Start: 07-14-2022 End: 07-15-2023 Comprehensive metabolic 1998 panel - Serum or Plasma Comprehensive metabolic panel Lab Routine Primary hypertension Expected: 07/14/2022 (Approximate), Expires: 07/15/2023 [facility] Comment on above: Expected: 07/14/2022 (Approximate), Expires: 07/15/2023 Start: 07-14-2022 End: 07-15-2023 Hemoglobin A1c/Hemoglobin.total in Blood Hemoglobin A1c Lab Routine Screening for diabetes mellitus Expected: 07/14/2022 (Approximate), Expires: 07/15/2023 [employer] Work Phone: Comment on above: Expected: 07/14/2022 (Approximate), Expires: 07/15/2023 Start: 07-14-2022 End: 07-15-2023 Lipid 1996 panel - Serum or Plasma Lipid panel Lab Routine Screening for lipid disorders Expected: 07/14/2022 (Approximate), Expires: 07/15/2023 [facility] Comment on above: Expected: 07/14/2022 (Approximate), Expires: 07/15/2023 Start: 07-14-2022 End: 07-15-2023 Thyrotropin [Units/volume] in Serum or Plasma TSH Lab Routine Screening for thyroid disorder Expected: 07/14/2022 (Approximate), Expires: 07/15/2023 [facility] Comment on above: Expected: 07/14/2022 (Approximate), Expires: 07/15/2023 Start: 2018 Screening for malign ant neoplasm of lung Lung Cancer Screening [facility] Start: 2018 Zoster Vaccines (1 o f 2) Zoster Vaccines (1 of 2) [facility] Start: 2008 Screening for malign ant neoplasm of breast Mammogram [facility] Start: 1998 Screening for malign ant neoplasm of cervix [facility] Start: 10-26-1996 DTaP/Tdap/Td Vaccine s (1 - Tdap) DTaP/Tdap/Td Vaccines (1 - Tdap) [facility] Start: 1989 Screening for malign ant neoplasm of cervix Pap Smear [facility] Start: 1987 Hepatitis B Vaccines (1 of 3 - 19+ 3-dose series) Hepatitis B Vaccines (1 of 3 - 19+ 3-dose series) [facility] Start: 1987 Pneumococcal Vaccine : 50+ Years (1 of 2 - PCV) Pneumococcal Vaccine: 50+ Years (1 of 2 - PCV) [facility] Start: 1986 Diabetes mellitus screening Diabetes Screening [facility] Start: 1986 Hepatitis C screening Hepatitis C Sc reening [facility] Start: 1980 Depression Screening Depression Scre ening [facility] Start: 1974 Pneumococcal Vaccine : Pediatrics (0 to 5 Years) and At-Risk Patients (6 to 64 Years) (1 - PCV) Pneumococcal Vaccine: Pediatrics (0 to 5 Years) and At-Risk Patients (6 to 64 Years) (1 - PCV) [facility] Start: 1974 Pneumococcal Vaccine : Pediatrics (0 to 5 Years) and At-Risk Patients (6 to 64 Years) (1 of 2 - PCV) Pneumococcal Vaccine: Pediatrics (0 to 5 Years) and At-Risk Patients (6 to 64 Years) (1 of 2 - PCV) [facility] Start: 1969 MMR Vaccines (1 of 1 - Standard series) MMR Vaccines (1 of 1 - Standard series) [facility] Start: 1968 COVID-19 Vaccine (#1) COVID-19 Vacci ne (#1) [facility] Start: 1968 Hepatitis B Vaccines (1 of 3 - 3-dose series) Hepatitis B Vaccines (1 of 3 - 3-dose series) [facility] Start: 1968 HIV screening HIV Screening [facility] Start: 1968 Lipid panel Lipid Panel [facility] Start: 1968 Screening for malign ant neoplasm of colon [facility] ECG 12 lead ECG 12 lead CV E CG STAT 08/01/2023 4:36 PM EDT [facility] Work Phone: Immunizations Immunization Date Immunization Notes Care Provider Ruth snyder 03-03-2024 influenza, seasonal, injectable, preservative free Trev Sampson MD Work Phone: [facility] 10-25-1996 TD(adult) unspecifie d formulation 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 2022 Unknown [id number] Unknown [id number] Social History Date Type Detail Facility Start: 07-14-2022 End: 11-16-2023 Tobacco smoking status NHIS Smokes tobacco daily [facility] History of tobacco use Cigarette Smoker [facility] Start: 07-14-2022 End: 11-16-2023 Tobacco use and exposure Smokeless tobacco non-user [facility] Start: 07-14-2022 End: 09-15-2024 Alcohol intake Ex-drinker (finding) [facility] Start: 1970 Sex Assigned At Not on file [facility] Start: 10-16-2022 End: 09-15-2024 Cigarettes smoked current (pack per day) - Reported 1 [facility] History of tobacco use Passive smoker [facility] Start: 10-16-2022 End: 09-15-2024 Tobacco use panel [facility] Start: 10-16-2022 Alcohol Comment does not drink [facility] Start: 10-06-2022 End: 10-16-2022 Exposure to SARS-CoV-2 (event) Not sure [facility] How often to you hav e a drink containing alcohol? Never [facility] Average Number of Drinks Not on file [facility] Start: 11-03-2021 Sex Female (finding) [facility] Functional Status Date Assessment Result Facility 09-15-2024 Total score [AUDIT-C] 0 09/16/19 25 11:54 AM EDT Mercedez Urrutia RN [facility] Clinical Notes 07-14-2022 to 09-15-2024 Discharge InstructionsAttachmentsNathan Licea MD - 09/15/2024 11:46 AM EDAntonio Urrutia RN - 09/15/2024 11:46 AM Taylor Urrutia RN - 09/15/2024 11:46 AM EDTDischarge InstructionsAttachments Note Date & Type Note Facility 09-15-2024 Hospital Discharge instructions Nathan Licea MD - 09/15/2024 12:06 PM EDT Take 200 mg ibuprofen every 6 hours for 7 days The following attachments cannot be sent through Care Everywhere.Cellulitis (Skin Infection) Discharge Instructions, Adult ([place])documented in this encounter [facility] 09-15-2024 Emergency department Note EMERGENCY DEPARTMENT ENCOUNTER Pt Name: Kaylynn Durán Birthdate 1970 Date of evaluation: 09/15/2024 CHIEF COMPLAINT Chief Complaint Patient presents with Skin Problem HISTORY OF PRESENT ILLNESS HPI Kaylynn Durán is a 54 y.o. female who presents to the emergency department with skin redness in both legs, right more than left swelling both legs. Severe itching. Blistering of the right leg. Symptoms of redness and itching started 2 weeks ago. Has chronic swelling in both legs. REVIEW OF SYSTEMS Review of Systems Problem List[1] CURRENT MEDICATIONS Previous Medications ALBUTEROL 108 (90 BASE) MCG/ACT INHALER Inhale 2 Puffs as instructed every 6 hours as needed for wheezing/shortness of breath. With spacer ATORVASTATIN (LIPITOR) 40 MG TABLET TAKE 1 TABLET BY MOUTH DAILY FLUTICASONE (FLONASE) 50 MCG/ACT NASAL SPRAY Administer 2 sprays into each nostril daily. Shake gently. Before first use, prime pump. After use, clean tip and replace cap. HYDROCHLOROTHIAZIDE 12.5 MG TABLET Take 1 tablet (12.5 mg) by mouth daily. LEVOTHYROXINE (SYNTHROID, LEVOXYL) 100 MCG TABLET TAKE 1 TABLET BY MOUTH DAILY MECLIZINE (ANTIVERT) 25 MG TABLET TAKE 1 TABLET BY MOUTH TWICE DAILY NEEDED for dizziness/vertigo METFORMIN XR (GLUCOPHAGE-XR) 500 MG 24 HR TABLET TAKE 1 TABLET BY MOUTH DAILY WITH BREAKFAST DO NOT CRUSH, CHEW, OR SPLIT METHOCARBAMOL (ROBAXIN) 500 MG TABLET Take 1 tablet (500 mg) by mouth 2 times daily for 10 days. METOPROLOL TARTRATE (LOPRESSOR) 50 MG TABLET Take 2 tablets (100 mg) by mouth See administration instructions for 2 doses. Check your HR the evening before your test and if HR >70 take a 2 tablets, If HR is between 60-70 then take 1 tab, If HR is <60 do not take any. Repeat 2 hours before your test. MONTELUKAST (SINGULAIR) 10 MG TABLET TAKE 1 TABLET BY MOUTH EVERY night ALLERGIES Ciprofloxacin and Penicillins SOCIAL HISTORY Social History[2] PHYSICAL EXAM Vitals: 09/15/24 1151 09/15/24 1152 BP: (!) 187/95 BP Location: Right arm Patient Position: Lying Pulse: 86 69 Resp: 16 16 Temp: 36.2 C (97.1 F) TempSrc: Oral SpO2: 99% 100% Weight: 95.3 kg (210 lb) Height: 1.575 m (5' 2) Physical Exam Vitals and nursing note reviewed. Constitutional: Appearance: She is obese. She is not toxic-appearing. Cardiovascular: Rate and Rhythm: Normal rate and regular rhythm. Pulses: Dorsalis pedis pulses are 2+ on the right side and 2+ on the left side. Posterior tibial pulses are 2+ on the right side and 2+ on the left side. Musculoskeletal: Right lower leg: Swelling and tenderness present. Left lower leg: Swelling and tenderness present. Right ankle: Swelling present. Left ankle: Swelling present. Right foot: No tenderness. Left foot: No tenderness. Comments: Soft compartments, no crepitus. Skin: General: Skin is warm. Capillary Refill: Capillary refill takes less than 2 seconds. Coloration: Skin is not cyanotic. Findings: Erythema, lesion and rash present. No abscess. Rash is vesicular (right laterl leg.). Neurological: Mental Status: She is alert. Sensory: Sensation is intact. Motor: Motor function is intact. Gait: Gait is intact. Deep Tendon Reflexes: Reflexes are normal and symmetric. Psychiatric: Behavior: Behavior normal. Thought Content: Thought content normal. SCREENINGS [place] Coma Scale Best Eye Response: Spontaneous Best Verbal Response: Oriented Best Motor Response: Follows commands Syed Coma Scale Score: 15 Medical decision making DIAGNOSTIC RESULTS Procedures/EKG: Physician EKG interpretation can be found in [facility] if done Radiologist results reviewed: No orders to display LABS: Labs Reviewed - No data to display RADIOLOGY : Medications ordered: Medications meloxicam (Mobic) tablet 7.5 mg (7.5 mg Oral Given 09/15/24 1206) ED Course as of 09/15/24 1216 WedSep 15, 2024 1210 Prior medical records were reviewed: oarrs reviewed no recent controlled substance prescription [NM] ED Course User Index [NM] Nathan Licea MD Diagnoses as of 09/15/24 1216 Cellulitis of right lower extremity Hypertension, unspecified type * No order type specified * Our workup consisted of ordering/reviewing: No orders of the defined types were placed in this encounter. MDM: 54 y.o. presented with leg redness and swelling. The differential diagnosis considered: Cellulitis, rash,. Patient's care was impacted by comorbidity of Hypertension and she is not able to take [id number] high-dose anti-inflammatory to help with the inflammation and swelling. Will trial low-dose. Diagnostic tests considered but not performed: Vascular ultrasound lower extremity venous duplex. Clinically not DVT. There is no tenderness along the deep venous system and swelling is chronic. Mainly skin symptoms Consideration for escalation of care with: meds ancef IV, not septic, hence not ordered . Prescription medications considered but not prescribed: oxycodone po. Will trial alternative to opiates. . REVAL: CRITICAL CARE TIME PROCEDURES: Procedures FINAL IMPRESSION 1. Cellulitis of right lower extremity 2. Hypertension, unspecified type DISPOSITION/PLAN DISPOSITION Discharge 09/15/2024 12:01:31 PM PATIENT REFERRED TO: Trev Sampson MD [id number] [phone] In 4 days I prescribed: New Prescriptions CEPHALEXIN (KEFLEX) 500 MG CAPSULE Take 1 capsule (500 mg) by mouth 4 times daily for 7 days. LORATADINE (CLARITIN) 10 MG TABLET Take 1 tablet (10 mg) by mouth daily for 20 days. (Comment: this report has been produced using speech recognition software and may contain errors related to that system including errors in grammar, punctuation, and spelling, as well as words and phrases that may be inappropriate) Nathan Licea MD (electronically signed) [1] Patient Active Problem List Diagnosis Venous insufficiency of both lower extremities Obesity Hypertension Hyperlipidemia Postablative hypothyroidism Unspecified asthma, uncomplicated Vitamin D deficiency Vitiligo [2] Social History Tobacco Use Smoking status: Every Day Current packs/day: 1.00 Average packs/day: 1 pack/day for 38.0 years (38.0 ttl pk-yrs) Types: Cigarettes Passive exposure: Current Smokeless tobacco: Never Vaping Use Vaping status: Never Used Substance Use Topics Alcohol use: Not Currently Comment: does not drink Drug use: Never Nathan Licea MD 09/15/24 1216 Pt ambulatory to room 5 with c/o bilateral lower leg redness, warmth and itching x 2 weeks. Pt states has been developing small blisters developing but not weeping and has concern of cellulitis. Reports increase pain with palpation to area. documented in this encounter [facility] 09-15-2024 Emergency department Triage note Pt ambulatory to room 5 with c/o bilateral lower leg redness, warmth and itching x 2 weeks. Pt states has been developing small blisters developing but not weeping and has concern of cellulitis. Reports increase pain with palpation to area. [facility] 09-15-2024 Physician Emergency department Note EMERGENCY DEPARTMENT ENCOUNTER Pt Name: Kaylynn Durán Birthdate 1970 Date of evaluation: 09/15/2024 CHIEF COMPLAINT Chief Complaint Patient presents with Skin Problem HISTORY OF PRESENT ILLNESS HPI Kaylynn Durán is a 54 y.o. female who presents to the emergency department with skin redness in both legs, right more than left swelling both legs. Severe itching. Blistering of the right leg. Symptoms of redness and itching started 2 weeks ago. Has chronic swelling in both legs. REVIEW OF SYSTEMS Review of Systems Problem List[1] CURRENT MEDICATIONS Previous Medications ALBUTEROL 108 (90 BASE) MCG/ACT INHALER Inhale 2 Puffs as instructed every 6 hours as needed for wheezing/shortness of breath. With spacer ATORVASTATIN (LIPITOR) 40 MG TABLET TAKE 1 TABLET BY MOUTH DAILY FLUTICASONE (FLONASE) 50 MCG/ACT NASAL SPRAY Administer 2 sprays into each nostril daily. Shake gently. Before first use, prime pump. After use, clean tip and replace cap. HYDROCHLOROTHIAZIDE 12.5 MG TABLET Take 1 tablet (12.5 mg) by mouth daily. LEVOTHYROXINE (SYNTHROID, LEVOXYL) 100 MCG TABLET TAKE 1 TABLET BY MOUTH DAILY MECLIZINE (ANTIVERT) 25 MG TABLET TAKE 1 TABLET BY MOUTH TWICE DAILY NEEDED for dizziness/vertigo METFORMIN XR (GLUCOPHAGE-XR) 500 MG 24 HR TABLET TAKE 1 TABLET BY MOUTH DAILY WITH BREAKFAST DO NOT CRUSH, CHEW, OR SPLIT METHOCARBAMOL (ROBAXIN) 500 MG TABLET Take 1 tablet (500 mg) by mouth 2 times daily for 10 days. METOPROLOL TARTRATE (LOPRESSOR) 50 MG TABLET Take 2 tablets (100 mg) by mouth See administration instructions for 2 doses. Check your HR the evening before your test and if HR >70 take a 2 tablets, If HR is between 60-70 then take 1 tab, If HR is <60 do not take any. Repeat 2 hours before your test. MONTELUKAST (SINGULAIR) 10 MG TABLET TAKE 1 TABLET BY MOUTH EVERY night ALLERGIES Ciprofloxacin and Penicillins SOCIAL HISTORY Social History[2] PHYSICAL EXAM Vitals: 09/15/24 1151 09/15/24 1152 BP: (!) 187/95 BP Location: Right arm Patient Position: Lying Pulse: 86 69 Resp: 16 16 Temp: 36.2 C (97.1 F) TempSrc: Oral SpO2: 99% 100% Weight: 95.3 kg (210 lb) Height: 1.575 m (5' 2) Physical Exam Vitals and nursing note reviewed. Constitutional: Appearance: She is obese. She is not toxic-appearing. Cardiovascular: Rate and Rhythm: Normal rate and regular rhythm. Pulses: Dorsalis pedis pulses are 2+ on the right side and 2+ on the left side. Posterior tibial pulses are 2+ on the right side and 2+ on the left side. Musculoskeletal: Right lower leg: Swelling and tenderness present. Left lower leg: Swelling and tenderness present. Right ankle: Swelling present. Left ankle: Swelling present. Right foot: No tenderness. Left foot: No tenderness. Comments: Soft compartments, no crepitus. Skin: General: Skin is warm. Capillary Refill: Capillary refill takes less than 2 seconds. Coloration: Skin is not cyanotic. Findings: Erythema, lesion and rash present. No abscess. Rash is vesicular (right laterl leg.). Neurological: Mental Status: She is alert. Sensory: Sensation is intact. Motor: Motor function is intact. Gait: Gait is intact. Deep Tendon Reflexes: Reflexes are normal and symmetric. Psychiatric: Behavior: Behavior normal. Thought Content: Thought content normal. SCREENINGS [place] Coma Scale Best Eye Response: Spontaneous Best Verbal Response: Oriented Best Motor Response: Follows commands Sy[place] Coma Scale Score: 15 Medical decision making DIAGNOSTIC RESULTS Procedures/EKG: Physician EKG interpretation can be found in [facility] if done Radiologist results reviewed: No orders to display LABS: Labs Reviewed - No data to display RADIOLOGY : Medications ordered: Medications meloxicam (Mobic) tablet 7.5 mg (7.5 mg Oral Given 09/15/24 1206) ED Course as of 09/15/24 1216 WedSep 15, 2024 121 Prior medical records were reviewed: oarrs reviewed no recent controlled substance prescription [NM] ED Course User Index [NM] Nathan Licea MD Diagnoses as of 09/15/24 1216 Cellulitis of right lower extremity Hypertension, unspecified type * No order type specified * Our workup consisted of ordering/reviewing: No orders of the defined types were placed in this encounter. MDM: 54 y.o. presented with leg redness and swelling. The differential diagnosis considered: Cellulitis, rash,. Patient's care was impacted by comorbidity of Hypertension and she is not able to take [id number] high-dose anti-inflammatory to help with the inflammation and swelling. Will trial low-dose. Diagnostic tests considered but not performed: Vascular ultrasound lower extremity venous duplex. Clinically not DVT. There is no tenderness along the deep venous system and swelling is chronic. Mainly skin symptoms Consideration for escalation of care with: meds ancef IV, not septic, hence not ordered . Prescription medications considered but not prescribed: oxycodone po. Will trial alternative to opiates. . REVAL: CRITICAL CARE TIME PROCEDURES: Procedures FINAL IMPRESSION 1. Cellulitis of right lower extremity 2. Hypertension, unspecified type DISPOSITION/PLAN DISPOSITION Discharge 09/15/2024 12:01:31 PM PATIENT REFERRED TO: Trev Sampson MD [id number] [id number] In 4 days I prescribed: New Prescriptions CEPHALEXIN (KEFLEX) 500 MG CAPSULE Take 1 capsule (500 mg) by mouth 4 times daily for 7 days. LORATADINE (CLARITIN) 10 MG TABLET Take 1 tablet (10 mg) by mouth daily for 20 days. (Comment: this report has been produced using speech recognition software and may contain errors related to that system including errors in grammar, punctuation, and spelling, as well as words and phrases that may be inappropriate) Nathan Licea MD (electronically signed) [1] Patient Active Problem List Diagnosis Venous insufficiency of both lower extremities Obesity Hypertension Hyperlipidemia Postablative hypothyroidism Unspecified asthma, uncomplicated Vitamin D deficiency Vitiligo [2] Social History Tobacco Use Smoking status: Every Day Current packs/day: 1.00 Average packs/day: 1 pack/day for 38.0 years (38.0 ttl pk-yrs) Types: Cigarettes Passive exposure: Current Smokeless tobacco: Never Vaping Use Vaping status: Never Used Substance Use Topics Alcohol use: Not Currently Comment: does not drink Drug use: Never Nathan Licea MD 09/15/24 1216 [facility] 05-01-2024 Note Noted, please see re ferral notes for more attempts on contacting patient to schedule. [facility] 05-01-2024 Telephone encounter Note Noted, please see referral notes for more attempts on contacting patient to schedule. [facility] 05-01-2024 Miscellaneous Notes Noted, please see referral notes for more attempts on contacting patient to schedule. We have been unable to reach your patient to schedule their testing. Test Name: CT Lung Screening 1st Attempt: 03/31/2024 2nd Attempt: 04/01/2024 documented in this encounter [facility] 04-01-2024 Telephone encounter Note We have been unable to reach your patient to schedule their testing. Test Name: CT Lung Screening 1st Attempt: 03/31/2024 2nd Attempt: 04/01/2024 [facility] 04-01-2024 Miscellaneous Notes We have been unable to reach your patient to schedule their testing. Test Name: CT Lung Screening 1st Attempt: 03/31/2024 2nd Attempt: 04/01/2024 documented in this encounter [facility] 03-24-2024 Hospital Discharge instructions DO Paolo Kelley 03/24/2024 12:52 AM EST In the medical field, there is always a level of diagnostic uncertainty, even if this uncertainty is low. For this reason, it is important to immediately return to the emergency department if you have any new symptoms, worsening symptoms, change of symptoms, or if you have any other concerns. We would be happy to re-evaluate you. Otherwise, please take your medications as prescribed and follow-up as recommended. documented in this encounter [facility] 03-23-2024 Emergency department Note EMERGENCY DEPARTMENT ENCOUNTER Pt Name: Beverly Durán Birthdate 1970 Date of evaluation: 03/23/2024 ED Provider: Lindsey Malcolm DO CHIEF COMPLAINT Chief Complaint Patient presents with Leg Swelling Left leg, pt sts that she normally has issues with swelling, sts it started Wednesday and has continued. Pt complains of numbness and pain in the leg. Numbness Left leg, ongoing since Wednesday. HISTORY OF PRESENT ILLNESS (Location/Symptom, Timing/Onset, Context/Setting, Quality, Duration, Modifying Factors, Severity) Note limiting factors. I wore appropriate PPE for the entirety of this encounter. HPI Beverly Durán is a 54 y.o. who presents to the emergency department with chief complaint of left lower leg edema. Patient reports that 20 years ago she had a total hysterectomy complicated with abscess formations. Since then she has been having chronic lower leg edema usually left worse than right. She reports for the last 5 days her left lower extremity has been more swollen and more full. She denies any recent travel, long plane or car rides. Denies any recent surgery. Denies any other symptoms of chest pain, shortness of breath, David pain, nausea, vomiting, diarrhea, constipation, urinary complaints. No known sick contacts. No fall. Nursing Notes were reviewed. REVIEW OF SYSTEMS Review of Systems Pertinent positives and negatives as per HPI. PAST MEDICAL HISTORY Past Medical History: Diagnosis Date Edema swelling in legs High blood pressure High cholesterol Thyroid condition underactive SURGICAL HISTORY Past Surgical History: Procedure Laterality Date GALLBLADDER SURGERY HYSTERECTOMY TONSILLECTOMY CURRENT MEDICATIONS Discharge Medication List as of 03/24/2024 12:52 AM CONTINUE these medications which have NOT CHANGED Details albuterol 108 (90 Base) MCG/ACT inhaler Inhale 2 Puffs as instructed every 6 hours as needed for wheezing/shortness of breath. With spacer, Normal atorvastatin (Lipitor) 40 MG tablet Take 1 tablet (40 mg) by mouth daily., Starting Wed08/01/2023, Until Wed07/31/2024, Normal fluticasone (Flonase) 50 MCG/ACT nasal spray Administer 2 sprays into each nostril daily. Shake gently. Before first use, prime pump. After use, clean tip and replace cap., Starting Wed10/16/2022, Until Wed03/03/2024, Normal hydroCHLOROthiazide 12.5 MG tablet Take 1 tablet (12.5 mg) by mouth daily., Starting Wed11/16/2023, Until Wed11/15/2024, Normal levothyroxine (Synthroid, Levoxyl) 100 MCG tablet TAKE 1 TABLET BY MOUTH DAILY, Starting Wed09/02/2023, Normal meclizine (Antivert) 25 MG tablet TAKE 1 TABLET BY MOUTH TWICE DAILY NEEDED for dizziness/vertigo, Normal metFORMIN XR (Glucophage-XR) 500 MG 24 hr tablet Take 1 tablet (500 mg) by mouth daily (with breakfast). Do not crush, chew, or split., Starting Wed08/01/2023, Until 07/31/2024, Normal metoprolol tartrate (Lopressor) 50 MG tablet Take 2 tablets (100 mg) by mouth See administration instructions for 2 doses. Check your HR the evening before your test and if HR >70 take a 2 tablets, If HR is between 60-70 then take 1 tab, If HR is <60 do not take any. Repeat 2 hours before your test ., Starting Wed09/21/2023, Until Wed09/20/2024 at 2359, Normal montelukast (Singulair) 10 MG tablet Take 1 tablet (10 mg) by mouth Nightly., Starting Wed07/30/2023, Until 07/29/2024, Normal ALLERGIES Ciprofloxacin and Penicillins FAMILY HISTORY Family History Problem Relation Name Age of Onset Cancer Mother Other cancer Mother heart issues Heart attack Mother Flynn's palsy Mother had once No Known Problems Father Alopecia Daughter No Known Problems Daughter No Known Problems Son No Known Problems Son SOCIAL HISTORY Social History Socioeconomic History Marital status: Number of children: 4 Tobacco Use Smoking status: Every Day Current packs/day: 1.00 Average packs/day: 1 pack/day for 38.0 years (38.0 ttl pk-yrs) Types: Cigarettes Passive exposure: Current Smokeless tobacco: Never Vaping Use Vaping status: Never Used Substance and Sexual Activity Alcohol use: Not Currently Comment: does not drink Drug use: Never Sexual activity: Yes Partners: Male SCREENINGS PHYSICAL EXAM ED Triage Vitals [03/23/24 2355] Temp Heart Rate Resp BP 36.8 C (98.2 F) 76 20 (!) 161/70 SpO2 Temp Source Heart Rate Source Patient Position 95 % Oral Monitor Sitting BP Location FiO2 (%) Right arm -- General: A&O x 3, well appearing, no acute distress Head: NC/AT Eyes: Atraumatic, EOMI, clear conjunctival, PERRLA Nose: Atraumatic, no skin changes Throat: Moist mucus membranes, uvula midline, oropharynx clear Neck: atraumatic, Supple, no lymphadenopathy, no stiffness or restricted ROM Heart: Normal rate and regular rhythm, no m/r/g Lungs: CTA bilaterally, no crackles or wheezes, no respiratory distress Abd: Soft, nontender, nondistended, no guarding Back: atraumatic, no step-off, No midline vertebral ttp, no CVA tenderness bilaterally Extremity: Mild edema to the left lower extremity worse than right. No calf tenderness to palpation. No skin changes. No pitting edema. Neurologic: Non focal exam, moving all extremities spontaneously, normal gait Skin: warm, dry, no obvious rashes DIAGNOSTIC RESULTS Procedures/EKG: EKG was reviewed by myself. Physician EKG interpretation can be found below in MDM RADIOLOGY (Per Emergency Physician): As per below in MDM section Interpretation per the Radiologist below, if available at the time of this note: Vascular US lower extremity venous duplex left (Results Pending) ED BEDSIDE ULTRASOUND: Performed by ED Physician - none LABS: Labs Reviewed - No data to display All other labs were within normal range or not returned as of this dictation. EMERGENCY DEPARTMENT COURSE and DIFFERENTIAL DIAGNOSIS/MDM: Vitals: Vitals: 03/23/24 2355 BP: (!) 161/70 BP Location: Right arm Patient Position: Sitting Pulse: 76 Resp: 20 Temp: 36.8 C (98.2 F) TempSrc: Oral SpO2: 95% Weight: 105 kg (232 lb) Height: 1.626 m (5' 4) Diagnoses as of 03/24/24 0351 Leg swelling Medications ketorolac (Toradol) injection 15 mg (15 mg IntraMUSCular Given 03/24/24 0052) Patient with hx of chronic edema presents to the ED with a chief complaint of left leg fullness. On exam, vitals stable. Per above. Otherwise per above (Differential diagnosis) With consideration of age, sex/gender, risk factors, to evaluate patient for high risk causes of morbidity and mortality such as, but not limited to, DVT versus chronic lymphedema No vascular ultrasound available at this time. Will schedule outpatient. We will also provide medical/symptomatic management with Toradol. Discussed plan with patient who agrees with current plan. REVAL: End of visit medical decision making Patient was reassessed. Resting comfortably. No acute distress. Response to medical management provided in the ED: improving Discussed all results with patient and/or family members. Pertinent parties verbalize understanding. Offered admission for further management. Discussed risks, benefits and alternatives. Considered additional workup and the emergency department or inpatient however patient will be discharged home with close follow-up. Strict return precautions given including when to return to the emergency department. Close follow-up with PCP and consultants as displayed in the discharge. Discussed all of the above with the following. Patient understands. Patient able to follow[facility] Patient verbalizes understanding and is agreeable to plan Follow up: PCP, Will prescribe: USолег CRITICAL CARE TIME None CONSULTS: None PROCEDURES: Unless otherwise noted below, none Procedures FINAL IMPRESSION 1. Leg swelling DISPOSITION Discharge 03/24/2024 12:51:11 AM PATIENT REFERRED TO: Trev Sampson MD [address] [place] [address] In 3 days DISCHARGE MEDICATIONS: Discharge Medication List as of 03/24/2024 12:52 AM START taking these medications Details methocarbamol (Robaxin) 500 MG tablet Take 1 tablet (500 mg) by mouth 2 times daily for 10 days., Starting Wed03/24/2024, Until Wed04/03/2024, Normal (Comment: Please note this report has been produced using speech recognition software and may contain errors related to that system including errors in grammar, punctuation, and spelling, as well as words and phrases that may be inappropriate. If there are any questions or concerns please feel free to contact the dictating provider for clarification.) Lindsey Malcolm DO (electronically signed) Emergency Medicine Provider Lindsey Malcolm DO 03/24/24 0352 Pt ambulatory to room 2 with complaints of left leg swelling, pain and numbness and tingling that has been ongoing since Wednesday. Pt describes the tingling as little bolts of electricity going through.Pt sts that she has some issues with swelling and is on a medication that is supposed to help with swelling. Denies injury to the leg. documented in this encounter [facility] 03-23-2024 Emergency department Triage note Pt ambulatory to room 2 with complaints of left leg swelling, pain and numbness and tingling that has been ongoing since Wednesday. Pt describes the tingling as little bolts of electricity going through.Pt sts that she has some issues with swelling and is on a medication that is supposed to help with swelling. Denies injury to the leg. [facility] 03-23-2024 Physician Emergency department Note EMERGENCY DEPARTMENT ENCOUNTER Pt Name: Beverly Durán Birthdate 1970 Date of evaluation: 03/23/2024 ED Provider: Lindsey Malcolm DO CHIEF COMPLAINT Chief Complaint Patient presents with Leg Swelling Left leg, pt sts that she normally has issues with swelling, sts it started Wednesday and has continued. Pt complains of numbness and pain in the leg. Numbness Left leg, ongoing since Wednesday. HISTORY OF PRESENT ILLNESS (Location/Symptom, Timing/Onset, Context/Setting, Quality, Duration, Modifying Factors, Severity) Note limiting factors. I wore appropriate PPE for the entirety of this encounter. HPI Beverly Durán is a 54 y.o. who presents to the emergency department with chief complaint of left lower leg edema. Patient reports that 20 years ago she had a total hysterectomy complicated with abscess formations. Since then she has been having chronic lower leg edema usually left worse than right. She reports for the last 5 days her left lower extremity has been more swollen and more full. She denies any recent travel, long plane or car rides. Denies any recent surgery. Denies any other symptoms of chest pain, shortness of breath, David pain, nausea, vomiting, diarrhea, constipation, urinary complaints. No known sick contacts. No fall. Nursing Notes were reviewed. REVIEW OF SYSTEMS Review of Systems Pertinent positives and negatives as per HPI. PAST MEDICAL HISTORY Past Medical History: Diagnosis Date Edema swelling in legs High blood pressure High cholesterol Thyroid condition underactive SURGICAL HISTORY Past Surgical History: Procedure Laterality Date GALLBLADDER SURGERY HYSTERECTOMY TONSILLECTOMY CURRENT MEDICATIONS Discharge Medication List as of 03/24/2024 12:52 AM CONTINUE these medications which have NOT CHANGED Details albuterol 108 (90 Base) MCG/ACT inhaler Inhale 2 Puffs as instructed every 6 hours as needed for wheezing/shortness of breath. With spacer, Normal atorvastatin (Lipitor) 40 MG tablet Take 1 tablet (40 mg) by mouth daily., Starting Wed08/01/2023, Until Wed07/31/2024, Normal fluticasone (Flonase) 50 MCG/ACT nasal spray Administer 2 sprays into each nostril daily. Shake gently. Before first use, prime pump. After use, clean tip and replace cap., Starting Wed10/16/2022, Until Wed03/03/2024, Normal hydroCHLOROthiazide 12.5 MG tablet Take 1 tablet (12.5 mg) by mouth daily., Starting Wed11/16/2023, Until Wed11/15/2024, Normal levothyroxine (Synthroid, Levoxyl) 100 MCG tablet TAKE 1 TABLET BY MOUTH DAILY, Starting Wed09/02/2023, Normal meclizine (Antivert) 25 MG tablet TAKE 1 TABLET BY MOUTH TWICE DAILY NEEDED for dizziness/vertigo, Normal metFORMIN XR (Glucophage-XR) 500 MG 24 hr tablet Take 1 tablet (500 mg) by mouth daily (with breakfast). Do not crush, chew, or split., Starting Wed08/01/2023, Until Wed07/31/2024, Normal metoprolol tartrate (Lopressor) 50 MG tablet Take 2 tablets (100 mg) by mouth See administration instructions for 2 doses. Check your HR the evening before your test and if HR >70 take a 2 tablets, If HR is between 60-70 then take 1 tab, If HR is <60 do not take any. Repeat 2 hours before your test ., Starting Wed09/21/2023, Until Wed09/20/2024 at 2359, Normal montelukast (Singulair) 10 MG tablet Take 1 tablet (10 mg) by mouth Nightly., Starting Wed07/30/2023, Until 07/29/2024, Normal ALLERGIES Ciprofloxacin and Penicillins FAMILY HISTORY Family History Problem Relation Name Age of Onset Cancer Mother Other cancer Mother heart issues Heart attack Mother Flynn's palsy Mother had once No Known Problems Father Alopecia Daughter No Known Problems Daughter No Known Problems Son No Known Problems Son SOCIAL HISTORY Social History Socioeconomic History Marital status: Number of children: 4 Tobacco Use Smoking status: Every Day Current packs/day: 1.00 Average packs/day: 1 pack/day for 38.0 years (38.0 ttl pk-yrs) Types: Cigarettes Passive exposure: Current Smokeless tobacco: Never Vaping Use Vaping status: Never Used Substance and Sexual Activity Alcohol use: Not Currently Comment: does not drink Drug use: Never Sexual activity: Yes Partners: Male SCREENINGS PHYSICAL EXAM ED Triage Vitals [03/23/24 2355] Temp Heart Rate Resp BP 36.8 C (98.2 F) 76 20 (!) 161/70 SpO2 Temp Source Heart Rate Source Patient Position 95 % Oral Monitor Sitting BP Location FiO2 (%) Right arm -- General: A&O x 3, well appearing, no acute distress Head: NC/AT Eyes: Atraumatic, EOMI, clear conjunctival, PERRLA Nose: Atraumatic, no skin changes Throat: Moist mucus membranes, uvula midline, oropharynx clear Neck: atraumatic, Supple, no lymphadenopathy, no stiffness or restricted ROM Heart: Normal rate and regular rhythm, no m/r/g Lungs: CTA bilaterally, no crackles or wheezes, no respiratory distress Abd: Soft, nontender, nondistended, no guarding Back: atraumatic, no step-off, No midline vertebral ttp, no CVA tenderness bilaterally Extremity: Mild edema to the left lower extremity worse than right. No calf tenderness to palpation. No skin changes. No pitting edema. Neurologic: Non focal exam, moving all extremities spontaneously, normal gait Skin: warm, dry, no obvious rashes DIAGNOSTIC RESULTS Procedures/EKG: EKG was reviewed by myself. Physician EKG interpretation can be found below in [facility] (Per Emergency Physician): As per below in MDM section Interpretation per the Radiologist below, if available at the time of this note: Vascular US lower extremity venous duplex left (Results Pending) ED BEDSIDE ULTRASOUND: Performed by ED Physician - none LABS: Labs Reviewed - No data to display All other labs were within normal range or not returned as of this dictation. EMERGENCY DEPARTMENT COURSE and DIFFERENTIAL DIAGNOSIS/MDM: Vitals: Vitals: 03/23/24 2355 BP: (!) 161/70 BP Location: Right arm Patient Position: Sitting Pulse: 76 Resp: 20 Temp: 36.8 C (98.2 F) TempSrc: Oral SpO2: 95% Weight: 105 kg (232 lb) Height: 1.626 m (5' 4) Diagnoses as of 03/24/24 0351 Leg swelling Medications ketorolac (Toradol) injection 15 mg (15 mg IntraMUSCular Given 03/24/24 0052) Patient with hx of chronic edema presents to the ED with a chief complaint of left leg fullness. On exam, vitals stable. Per above. Otherwise per above (Differential diagnosis) With consideration of age, sex/gender, risk factors, to evaluate patient for high risk causes of morbidity and mortality such as, but not limited to, DVT versus chronic lymphedema No vascular ultrasound available at this time. Will schedule outpatient. We will also provide medical/symptomatic management with Toradol. Discussed plan with patient who agrees with current plan. REVAL: End of visit medical decision making Patient was reassessed. Resting comfortably. No acute distress. Response to medical management provided in the ED: improving Discussed all results with patient and/or family members. Pertinent parties verbalize understanding. Offered admission for further management. Discussed risks, benefits and alternatives. Considered additional workup and the emergency department or inpatient however patient will be discharged home with close follow-up. Strict return precautions given including when to return to the emergency department. Close follow-up with PCP and consultants as displayed in the discharge. Discussed all of the above with the following. Patient understands. Patient able to follow-[facility] on [facility] Patient verbalizes understanding and is agreeable to plan Follow up: PCP, Will prescribe: US, [id number] CRITICAL CARE TIME None CONSULTS: None PROCEDURES: Unless otherwise noted below, none Procedures FINAL IMPRESSION 1. Leg swelling DISPOSITION Discharge 03/24/2024 12:51:11 AM PATIENT REFERRED TO: Trev Sampson MD [address] [facility] [address] [facility] [id number] In 3 days DISCHARGE MEDICATIONS: Discharge Medication List as of 03/24/2024 12:52 AM START taking these medications Details methocarbamol (Robaxin) 500 MG tablet Take 1 tablet (500 mg) by mouth 2 times daily for 10 days., Starting Wed03/24/2024, Until 04/03/2024, Normal (Comment: Please note this report has been produced using speech recognition software and may contain errors related to that system including errors in grammar, punctuation, and spelling, as well as words and phrases that may be inappropriate. If there are any questions or concerns please feel free to contact the dictating provider for clarification.) Lindsey Malcolm DO (electronically signed) Emergency Medicine Provider Lindsey Malcolm DO 03/24/24 0352 [facility] 03-03-2024 History of Present illness Narrative Images from the original note were not included. [facility] - [address] [place] [id number] Visit Type: Follow Up Appointment PCP: Trev Sampson MD Reason for Visit: Follow-up and Med Refill Assessment and Plan Beverly was seen today for follow-up and med refill. Diagnoses and all orders for this visit: Primary hypertension Vertigo - meclizine (Antivert) 25 MG tablet; TAKE 1 TABLET BY MOUTH TWICE DAILY NEEDED for dizziness/vertigo Mixed hyperlipidemia Cellulitis of right hand - cephalexin (Keflex) 500 MG capsule; Take 1 capsule (500 mg) by mouth 2 times daily for 5 days. Cigarette smoker - CT lung screening low dose; Future Other orders - Flu vaccine (FLUZONE/FLULAVAL/FLUARIX), trivalent, split virus (VFC product) Will give Keflex as she has tolerated this in the past for her cellulitis. Meclizine refilled no change to her antihypertensive medications. CT lung screening ordered. No follow-ups on file. Subjective HPI Kaylynn Durán presented to the office for follow-up. Of note she has hypertension which is well-controlled on metoprolol tartrate and hydrochlorothiazide. She also notes that she has some intermittent vertigo though and has been under reasonable control. Would like a refill on meclizine. She did have a wound that appeared on her right hand that has been red and slow to heal. She questions if anything needs done. Review of Systems As noted in HPI The following portions of the chart were reviewed this encounter and updated as appropriate: Current Outpatient Medications: albuterol 108 (90 Base) MCG/ACT inhaler, Inhale 2 Puffs as instructed every 6 hours as needed for wheezing/shortness of breath. With spacer, Disp: 18 g, Rfl: 3 atorvastatin (Lipitor) 40 MG tablet, Take 1 tablet (40 mg) by mouth daily., Disp: 90 tablet, Rfl: 3 fluticasone (Flonase) 50 MCG/ACT nasal spray, Administer 2 sprays into each nostril daily. Shake gently. Before first use, prime pump. After use, clean tip and replace cap., Disp: 16 g, Rfl: 11 hydroCHLOROthiazide 12.5 MG tablet, Take 1 tablet (12.5 mg) by mouth daily., Disp: 90 tablet, Rfl: 3 levothyroxine (Synthroid, Levoxyl) 100 MCG tablet, TAKE 1 TABLET BY MOUTH DAILY, Disp: 90 tablet, Rfl: 1 metFORMIN XR (Glucophage-XR) 500 MG 24 hr tablet, Take 1 tablet (500 mg) by mouth daily (with breakfast). Do not crush, chew, or split., Disp: 90 tablet, Rfl: 3 metoprolol tartrate (Lopressor) 50 MG tablet, Take 2 tablets (100 mg) by mouth See administration instructions for 2 doses. Check your HR the evening before your test and if HR >70 take a 2 tablets, If HR is between 60-70 then take 1 tab, If HR is <60 do not take any. Repeat 2 hours before your test., Disp: 4 tablet, Rfl: 0 montelukast (Singulair) 10 MG tablet, Take 1 tablet (10 mg) by mouth Nightly., Disp: 90 tablet, Rfl: 3 cephalexin (Keflex) 500 MG capsule, Take 1 capsule (500 mg) by mouth 2 times daily for 5 days., Disp: 10 capsule, Rfl: 0 meclizine (Antivert) 25 MG tablet, TAKE 1 TABLET BY MOUTH TWICE DAILY NEEDED for dizziness/vertigo, Disp: 30 tablet, Rfl: 3 Objective BP 132/79 (BP Location: Right arm, Patient Position: Sitting, BP Cuff Size: Large adult long) Pulse 69 Wt 223 lb (101 kg) LMP 10/16/1997 (Approximate) SpO2 92% BMI 38.28 kg/m Physical Exam Vitals and nursing note reviewed. Constitutional: Appearance: Normal appearance. HENT: Head: Normocephalic and atraumatic. Cardiovascular: Rate and Rhythm: Normal rate and regular rhythm. Pulses: Normal pulses. Heart sounds: Normal heart sounds. No murmur heard. Pulmonary: Effort: Pulmonary effort is normal. Breath sounds: Normal breath sounds. No wheezing or rhonchi. Abdominal: General: Abdomen is flat. Bowel sounds are normal. Palpations: Abdomen is soft. Tenderness: There is no abdominal tenderness. Musculoskeletal: General: Swelling present. Skin: General: Skin is warm and dry. Findings: Erythema present. Neurological: General: No focal deficit present. Mental Status: She is alert. Mental status is at baseline. Data Reviewed Labs: Imaging/Testing: Chart Clean Up: Medications Discontinued During This Encounter Medication Reason meclizine (Antivert) 25 MG tablet Reorder Trev Sampson MD 03/05/2024 10:59 PM The patient, Kaylynn Durán's, identity was verified by name and . Influenza VIS (s) given to patient for review prior to immunization administration. Received informed consent to proceed with Influenza immunization (s). Immunization (s) given as ordered by Dr. Sampson. Kaylynn Durán waited 15 minutes after injection, tolerated procedure well. documented in this encounter [facility] 03-03-2024 Instructions Trev Sampson MD - 03/03/2024 1:00 PM EST Screening Colonoscopy (Screening/surveillance program) [phone] documented in this encounter [facility] 12-17-2023 Hospital Discharge instructions Alexis Gale DO - 12/17/2023 11:11 PM EDT Please use a cushion over your elbow until your symptoms have resolved. Follow-up with your doctor in about 1 week. Take Tylenol and Motrin as needed for mild pain. The following attachments cannot be sent through Care Everywhere.Joint Pain ([place])documented in this encounter [facility] 12-17-2023 Emergency department Note Emergency Department Encounter [facility] ED Patient: Kaylynn Durán : 1970 Date of Evaluation: 12/17/2023 ED Provider: Alexis Gale DO Chief Complaint Chief Complaint Patient presents with Elbow Pain Fall CACHIL DEHE Kaylynn Durán is a 53 y.o. female who presents to the emergency department complaining of right elbow pain. Patient reports the previous day that she had a fall on staircase and landed on her right elbow. She initially did not think that she had any specific symptoms but later noted that she has pain when she attempts to lean her elbow on an armrest or in certain positions. She states this causes Pain that makes me feel sick . Denies any numbness or tingling. Denies any other injury. Additional history obtained from : n/a Barriers to obtaining history from patient: n/a ROS: Review of Systems completed as follows: (Bold = positive, Not bold = negative) GENERAL: fevers, chills, malaise MUSCULOSKELETAL: pain Past History Past Medical History: Diagnosis Date Edema swelling in legs High blood pressure High cholesterol Thyroid condition underactive Past Surgical History: Procedure Laterality Date GALLBLADDER SURGERY HYSTERECTOMY TONSILLECTOMY Social History Socioeconomic History Marital status: Number of children: 4 Tobacco Use Smoking status: Every Day Current packs/day: 1.00 Average packs/day: 1 pack/day for 38.0 years (38.0 ttl pk-yrs) Types: Cigarettes Passive exposure: Current Smokeless tobacco: Never Vaping Use Vaping status: Never Used Substance and Sexual Activity Alcohol use: Not Currently Comment: does not drink Drug use: Never Sexual activity: Yes Partners: Male I have reviewed the history above as provided by nursing notes. Medications/Allergies Discharge Medication List as of 12/17/2023 11:11 PM CONTINUE these medications which have NOT CHANGED Details albuterol 108 (90 Base) MCG/ACT inhaler Inhale 2 Puffs as instructed every 6 hours as needed for wheezing/shortness of breath. With spacer, Normal atorvastatin (Lipitor) 40 MG tablet Take 1 tablet (40 mg) by mouth daily., Starting Wed08/01/2023, Until Wed07/31/2024, Normal fluticasone (Flonase) 50 MCG/ACT nasal spray Administer 2 sprays into each nostril daily. Shake gently. Before first use, prime pump. After use, clean tip and replace cap., Starting Wed10/16/2022, Until Wed11/16/2023, Normal hydroCHLOROthiazide 12.5 MG tablet Take 1 tablet (12.5 mg) by mouth daily., Starting Wed11/16/2023, Until Wed11/15/2024, Normal levothyroxine (Synthroid, Levoxyl) 100 MCG tablet TAKE 1 TABLET BY MOUTH DAILY, Starting Wed09/02/2023, Normal meclizine (Antivert) 25 MG tablet TAKE 1 TABLET BY MOUTH TWICE DAILY NEEDED for dizziness/vertigo, Normal metFORMIN XR (Glucophage-XR) 500 MG 24 hr tablet Take 1 tablet (500 mg) by mouth daily (with breakfast). Do not crush, chew, or split., Starting Wed08/01/2023, Until Wed07/31/2024, Normal metoprolol tartrate (Lopressor) 50 MG tablet Take 2 tablets (100 mg) by mouth See administration instructions for 2 doses. Check your HR the evening before your test and if HR >70 take a 2 tablets, If HR is between 60-70 then take 1 tab, If HR is <60 do not take any. Repeat 2 hours before your test ., Starting Wed09/21/2023, Until Wed09/20/2024 at 2359, Normal montelukast (Singulair) 10 MG tablet Take 1 tablet (10 mg) by mouth Nightly., Starting 07/30/2023, Until 07/29/2024, Normal Allergies Allergen Reactions Ciprofloxacin Itching and Swelling Penicillins Hives hives I have reviewed the history above as provided by nursing notes. Physical Exam ED Triage Vitals [12/17/232236] Temp Heart Rate Resp BP 36.7 C (98.1 F) 84 16 (!) 164/66 SpO2 Temp Source Heart Rate Source Patient Position 97 % Oral Monitor Sitting BP Location FiO2 (%) Left arm -- GENERAL: The patient appears nourished and normally developed. Vital signs as documented. EYES: PERRL. No scleral icterus or orbital trauma noted. HEENT: Mucous membranes moist. Nares patent without copious rhinorrhea. EXTREMITIES: There is no tenderness to palpation with range of motion of the shoulder, elbow or wrist. Patient does have tenderness near the olecranon process. There is normal sensation throughout to light touch. Capillary refill is normal. There are 2+ radial pulses bilaterally. SKIN: Good color, with no significant rashes. No pallor. NEURO: No obvious neurological deficits, normal sensation and strength bilaterally. Diagnostics Labs: Results for orders placed or performed in visit on 08/01/23 Hemoglobin A1c Result Value Ref Range HEMOGLOBIN A1C - [facility] 6.3 (H) <5.7 % of total Hgb TSH Result Value Ref Range TSH 12.37 (H) mIU/L Radiographs: XR elbow 3+ views right Final Result 1. No acute finding. Report Dictated on Electronically Signed By: José Miguel Portillo MD Electronically Signed Date/Time: 12/17/2023 10:55 PM EDT EMERGENCY DEPARTMENT COURSE and DIFFERENTIAL DIAGNOSIS/MDM: Vitals: Vitals: 12/17/232236 BP: (!) 164/66 BP Location: Left arm Patient Position: Sitting Pulse: 84 Resp: 16 Temp: 36.7 C (98.1 F) TempSrc: Oral SpO2: 97% Weight: 97.5 kg (215 lb) Height: 1.626 m (5' 4) The patient presented with a chief complaint of elbow pain. Vital signs reviewed. Concern for fracture, contusion, neuropathy. X-ray was ordered. This was personally interpreted. This did not show any evidence of fracture. Suspect soft tissue injury. Encourage patient to use padding over the elbow for comfort, follow-up with her doctor in about 1 week for repeat evaluation.. She states understanding of the plan and she was discharged home. Diagnoses as of 12/18/23400 Right elbow pain Patients symptoms are consistent with sepsis, severe sepsis or septic shock (if yes, use .sepsiscoremeasure) - no Final Impression 1. Right elbow pain DISPOSITION discharge Comment: Please note this report has been produced using speech recognition software and may contain errors related to that system including errors in grammar, punctuation, and spelling, as well as words and phrases that may be inappropriate. If there are any questions or concerns please feel free to contact the dictating provider for clarification. Alexis Gale DO Acute Care [facility] Alexis Gale DO 12/18/23402 Pt to ER with complaint of right elbow pain after a fall 2 days ago. 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 She fell up the steps and hit her right elbow on the concrete step. Denies hitting her head or any loss of consciousness. States she has rested it and put ice on it without relief. States she is able to move the elbow without much pain, but when she goes to rest her elbow on a chair or in her car she gets a sharp burning pain shooting down her forearm into her hand. Pain 5/10 at this time. No obvious swelling or deformity noted. Pt with full range of motion, no pain in shoulder. Pt ambulatory on arrival with steady gait. Alert and oriented x 4. Skin warm and dry. Respirations even and unlabored. Call light in reach documented in this encounter [facility] 12-17-2023 Emergency department Triage note Pt to ER with complaint of right elbow pain after a fall 2 days ago. 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 She fell up the steps and hit her right elbow on the concrete step. Denies hitting her head or any loss of consciousness. States she has rested it and put ice on it without relief. States she is able to move the elbow without much pain, but when she goes to rest her elbow on a chair or in her car she gets a sharp burning pain shooting down her forearm into her hand. Pain 5/10 at this time. No obvious swelling or deformity noted. Pt with full range of motion, no pain in shoulder. Pt ambulatory on arrival with steady gait. Alert and oriented x 4. Skin warm and dry. Respirations even and unlabored. Call light in reach [facility] 12-17-2023 Physician Emergency department Note Emergency Department Encounter [facility] ED Patient: Kaylynn Durán : 1970 Date of Evaluation: 12/17/2023 ED Provider: Alexis Gale DO Chief Complaint Chief Complaint Patient presents with Elbow Pain Fall CACHIL DEHE Kaylynn Durán is a 53 y.o. female who presents to the emergency department complaining of right elbow pain. Patient reports the previous day that she had a fall on staircase and landed on her right elbow. She initially did not think that she had any specific symptoms but later noted that she has pain when she attempts to lean her elbow on an armrest or in certain positions. She states this causes Pain that makes me feel sick . Denies any numbness or tingling. Denies any other injury. Additional history obtained from : n/a Barriers to obtaining history from patient: n/a ROS: Review of Systems completed as follows: (Bold = positive, Not bold = negative) GENERAL: fevers, chills, malaise MUSCULOSKELETAL: pain Past History Past Medical History: Diagnosis Date Edema swelling in legs High blood pressure High cholesterol Thyroid condition underactive Past Surgical History: Procedure Laterality Date GALLBLADDER SURGERY HYSTERECTOMY TONSILLECTOMY Social History Socioeconomic History Marital status: Number of children: 4 Tobacco Use Smoking status: Every Day Current packs/day: 1.00 Average packs/day: 1 pack/day for 38.0 years (38.0 ttl pk-yrs) Types: Cigarettes Passive exposure: Current Smokeless tobacco: Never Vaping Use Vaping status: Never Used Substance and Sexual Activity Alcohol use: Not Currently Comment: does not drink Drug use: Never Sexual activity: Yes Partners: Male I have reviewed the history above as provided by nursing notes. Medications/Allergies Discharge Medication List as of 12/17/2023 11:11 PM CONTINUE these medications which have NOT CHANGED Details albuterol 108 (90 Base) MCG/ACT inhaler Inhale 2 Puffs as instructed every 6 hours as needed for wheezing/shortness of breath. With spacer, Normal atorvastatin (Lipitor) 40 MG tablet Take 1 tablet (40 mg) by mouth daily., Starting Wed08/01/2023, Until Wed07/31/2024, Normal fluticasone (Flonase) 50 MCG/ACT nasal spray Administer 2 sprays into each nostril daily. Shake gently. Before first use, prime pump. After use, clean tip and replace cap., Starting Wed10/16/2022, Until Wed11/16/2023, Normal hydroCHLOROthiazide 12.5 MG tablet Take 1 tablet (12.5 mg) by mouth daily., Starting Wed11/16/2023, Until Wed11/15/2024, Normal levothyroxine (Synthroid, Levoxyl) 100 MCG tablet TAKE 1 TABLET BY MOUTH DAILY, Starting Wed09/02/2023, Normal meclizine (Antivert) 25 MG tablet TAKE 1 TABLET BY MOUTH TWICE DAILY NEEDED for dizziness/vertigo, Normal metFORMIN XR (Glucophage-XR) 500 MG 24 hr tablet Take 1 tablet (500 mg) by mouth daily (with breakfast). Do not crush, chew, or split., Starting Wed08/01/2023, Until Wed07/31/2024, Normal metoprolol tartrate (Lopressor) 50 MG tablet Take 2 tablets (100 mg) by mouth See administration instructions for 2 doses. Check your HR the evening before your test and if HR >70 take a 2 tablets, If HR is between 60-70 then take 1 tab, If HR is <60 do not take any. Repeat 2 hours before your test ., Starting Wed09/21/2023, Until Wed09/20/2024 at 2359, Normal montelukast (Singulair) 10 MG tablet Take 1 tablet (10 mg) by mouth Nightly., Starting Wed07/30/2023, Until 07/29/2024, Normal Allergies Allergen Reactions Ciprofloxacin Itching and Swelling Penicillins Hives hives I have reviewed the history above as provided by nursing notes. Physical Exam ED Triage Vitals [12/17/232236] Temp Heart Rate Resp BP 36.7 C (98.1 F) 84 16 (!) 164/66 SpO2 Temp Source Heart Rate Source Patient Position 97 % Oral Monitor Sitting BP Location FiO2 (%) Left arm -- GENERAL: The patient appears nourished and normally developed. Vital signs as documented. EYES: PERRL. No scleral icterus or orbital trauma noted. HEENT: Mucous membranes moist. Nares patent without copious rhinorrhea. EXTREMITIES: There is no tenderness to palpation with range of motion of the shoulder, elbow or wrist. Patient does have tenderness near the olecranon process. There is normal sensation throughout to light touch. Capillary refill is normal. There are 2+ radial pulses bilaterally. SKIN: Good color, with no significant rashes. No pallor. NEURO: No obvious neurological deficits, normal sensation and strength bilaterally. Diagnostics Labs: Results for orders placed or performed in visit on 08/01/23 Hemoglobin A1c Result Value Ref Range HEMOGLOBIN A1C - [facility] 6.3 (H) <5.7 % of total Hgb TSH Result Value Ref Range TSH 12.37 (H) mIU/L Radiographs: XR elbow 3+ views right Final Result 1. No acute finding. Report Dictated on Electronically Signed By: José Miguel Portillo MD Electronically Signed Date/Time: 12/17/2023 10:55 PM EDT EMERGENCY DEPARTMENT COURSE and DIFFERENTIAL DIAGNOSIS/MDM: Vitals: Vitals: 12/17/232236 BP: (!) 164/66 BP Location: Left arm Patient Position: Sitting Pulse: 84 Resp: 16 Temp: 36.7 C (98.1 F) TempSrc: Oral SpO2: 97% Weight: 97.5 kg (215 lb) Height: 1.626 m (5' 4) The patient presented with a chief complaint of elbow pain. Vital signs reviewed. Concern for fracture, contusion, neuropathy. X-ray was ordered. This was personally interpreted. This did not show any evidence of fracture. Suspect soft tissue injury. Encourage patient to use padding over the elbow for comfort, follow-up with her doctor in about 1 week for repeat evaluation.. She states understanding of the plan and she was discharged home. Diagnoses as of 12/18/23400 Right elbow pain Patients symptoms are consistent with sepsis, severe sepsis or septic shock (if yes, use .sepsiscoremeasure) - no Final Impression 1. Right elbow pain DISPOSITION discharge Comment: Please note this report has been produced using speech recognition software and may contain errors related to that system including errors in grammar, punctuation, and spelling, as well as words and phrases that may be inappropriate. If there are any questions or concerns please feel free to contact the dictating provider for clarification. Alexis Gale DO [employer] Alexis Gale DO 12/18/23402 [facility] 11-16-2023 History of Present illness Narrative Images from the original note were not included. [facility] [address] [facility] [id number] Visit Type: Same Day PCP: Trev Sampson MD Reason for Visit: Blister (Patient states started last Wednesday, left wrist, blister, big, purple, painful and starting to get another blister on the right hand ) Assessment and Plan Beverly was seen today for blister. Diagnoses and all orders for this visit: Blister Other orders - hydroCHLOROthiazide 12.5 MG tablet; Take 1 tablet (12.5 mg) by mouth daily. I do not have a specific cause for her blisters. 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 It is limited to those areas which is interesting. Because the relatively acute still would ask her to continue to monitor. Discussed if they continue to get bigger or if she noticed them in other locations they would like to know this and we would get her to dermatology for further testing. She agreed with this plan. If it is a medication reaction lisinopril would be a potential cause so I am going to switch her to hydrochlorothiazide alone. Her blood pressure is low and she should tolerate this. No follow-ups on file. Subjective HPI Kaylynn Durán presented to the office with complaints of blisters on her hands/wrist. She denies any specific contact with the area though notes she was working outside. She denies any sunburn. She has multiple blisters that are tender. They are over the scarred areas from a previous burn on her skin. She does not have blisters anywhere else. Largest is a inch and a half long blister that is tender and tense. Review of Systems As noted above The following portions of the chart were reviewed this encounter and updated as appropriate: Current Outpatient Medications: albuterol 108 (90 Base) MCG/ACT inhaler, Inhale 2 Puffs as instructed every 6 hours as needed for wheezing/shortness of breath. With spacer, Disp: 18 g, Rfl: 3 atorvastatin (Lipitor) 40 MG tablet, Take 1 tablet (40 mg) by mouth daily., Disp: 90 tablet, Rfl: 3 fluticasone (Flonase) 50 MCG/ACT nasal spray, Administer 2 sprays into each nostril daily. Shake gently. Before first use, prime pump. After use, clean tip and replace cap., Disp: 16 g, Rfl: 11 levothyroxine (Synthroid, Levoxyl) 100 MCG tablet, TAKE 1 TABLET BY MOUTH DAILY, Disp: 90 tablet, Rfl: 1 meclizine (Antivert) 25 MG tablet, TAKE 1 TABLET BY MOUTH TWICE DAILY NEEDED for dizziness/vertigo, Disp: 30 tablet, Rfl: 3 metFORMIN XR (Glucophage-XR) 500 MG 24 hr tablet, Take 1 tablet (500 mg) by mouth daily (with breakfast). Do not crush, chew, or split., Disp: 90 tablet, Rfl: 3 metoprolol tartrate (Lopressor) 50 MG tablet, Take 2 tablets (100 mg) by mouth See administration instructions for 2 doses. Check your HR the evening before your test and if HR >70 take a 2 tablets, If HR is between 60-70 then take 1 tab, If HR is <60 do not take any. Repeat 2 hours before your test., Disp: 4 tablet, Rfl: 0 montelukast (Singulair) 10 MG tablet, Take 1 tablet (10 mg) by mouth Nightly., Disp: 90 tablet, Rfl: 3 hydroCHLOROthiazide 12.5 MG tablet, Take 1 tablet (12.5 mg) by mouth daily., Disp: 90 tablet, Rfl: 3 Objective BP 105/68 (BP Location: Right arm, Patient Position: Sitting, BP Cuff Size: Large adult long) Pulse 58 Wt 216 lb (98 kg) LMP 10/16/1997 (Approximate) SpO2 93% BMI 37.08 kg/m Physical Exam Vitals and nursing note reviewed. Constitutional: Appearance: Normal appearance. HENT: Head: Normocephalic and atraumatic. Cardiovascular: Rate and Rhythm: Normal rate and regular rhythm. Pulses: Normal pulses. Heart sounds: Normal heart sounds. No murmur heard. Pulmonary: Effort: Pulmonary effort is normal. Breath sounds: Normal breath sounds. No wheezing or rhonchi. Abdominal: General: Abdomen is flat. Palpations: Abdomen is soft. Skin: General: Skin is warm and dry. Comments: See picture Neurological: General: No focal deficit present. Mental Status: She is alert. Mental status is at baseline. Data Reviewed Labs: Imaging/Testing: Chart Clean Up: Medications Discontinued During This Encounter Medication Reason lisinopril-hydroCHLOROthiazide 10-12.5 MG tablet Trev Sampson MD 11/18/2023 11:29 PM documented in this encounter [facility] 11-15-2023 Note Reviewed and agree w [facility] plan of care. [facility] 11-15-2023 Telephone encounter Note Reviewed and agree with plan of care. [facility] 11-15-2023 Miscellaneous Notes Reviewed and agree with plan of care. S: Patient spoke with CAC nurse regarding blisters B: Onset of symptoms/concern last 11/06/23 A: Calls with concern of having a blister on her wrist last Wednesday, has turned purple and now has a couple more that she notes. Left wrist has a purple, pea sized spot with fluids filled spot and left hand has a long about quarter sized width that is fluid filled, and edges are starting to become purple, and is has one starting now on her right hand that is slightly fluids filled. The largest is painful that is mild with this call. Left hand may be slightly swollen. Denies fever, pus drainage. R: Insurance verified and not new. Scheduled appointment with Dr. Sampson for 11/15. Advise to bring ID and insurance cards and list of current medications, and arrive 15 minutes early. Patient understands care advice. No further needs at this time. Patient instructed to call back with new or worsening symptoms. S: Patient calling CAC nurse regarding blisters on hand turing purple, painful per PAL note A: No contact made with return call R: No Contact made with return call to patient. Patient instructed to call back with new or worsening symptoms. Reason for Disposition Message left on unidentified voice mail. Phone number verified. [1] Cause unknown AND [2] new blisters are developing Protocols used: Blister - Foot and [id number]-[id number], No Contact or Duplicate Contact [id number] documented in this encounter [facility] 11-15-2023 Telephone encounter Note S: Patient spoke with CAC nurse regarding blisters B: Onset of symptoms/concern last 11/06/23 A: Calls with concern of having a blister on her wrist last Wednesday, has turned purple and now has a couple more that she notes. Left wrist has a purple, pea sized spot with fluids filled spot and left hand has a long about quarter sized width that is fluid filled, and edges are starting to become purple, and is has one starting now on her right hand that is slightly fluids filled. The largest is painful that is mild with this call. Left hand may be slightly swollen. Denies fever, pus drainage. R: Insurance verified and not new. Scheduled appointment with Dr. Sampson for 11/15. Advise to bring ID and insurance cards and list of current medications, and arrive 15 minutes early. Patient understands care advice. No further needs at this time. Patient instructed to call back with new or worsening symptoms. [facility] 11-15-2023 Telephone encounter Note S: Patient calling CAC nurse regarding blisters on hand turing purple, painful per PAL note A: No contact made with return call R: No Contact made with return call to patient. Patient instructed to call back with new or worsening symptoms. Reason for Disposition Message left on unidentified voice mail. Phone number verified. [1] Cause unknown AND [2] new blisters are developing Protocols used: Blister - Foot and Uamm-[id number], No Contact or Duplicate Contact [id number] [facility] 10-26-2023 Telephone encounter Note Spoke with patient and due to financial cost patient preferred to cancel echo and CTA at this time. I advised her to call anytime if she would like the orders sent to another facility to have them completed. [facility] 10-26-2023 Miscellaneous Notes Spoke with patient and due to financial cost patient preferred to cancel echo and CTA at this time. I advised her to call anytime if she would like the orders sent to another facility to have them completed. Images from the original note were not included. Good afternoon, Patient is scheduled on 10/28 for their TTE. Patient's insurance is an open-network plan (meaning they do not have a contract with any specific facility) and is a limited benefit plan. Per [facility]'s new policy, we are to view this patient's insurance as non-contracted and to follow the below guidelines. They will be required to pay 50% upfront prior to receiving services. I also double checked with the Patient Access Trainers and they confirmed we are to view any open-network or limited benefit plan as non-contracted. Please advise. documented in this encounter [facility] 10-04-2023 Telephone encounter Note Images from the original note were not included. Good afternoon, Patient is scheduled on 10/28 for their TTE. Patient's insurance is an open-network plan (meaning they do not have a contract with any specific facility) and is a limited benefit plan. Per [facility]'s new policy, we are to view this patient's insurance as non-contracted and to follow the below guidelines. They will be required to pay 50% upfront prior to receiving services. I also double checked with the Patient Access Trainers and they confirmed we are to view any open-network or limited benefit plan as non-contracted. Please advise. [facility] 09-21-2023 History of Present illness Narrative [facility] Cardiology Note DATE of SERVICE:09/21/23 TIME of SERVICE: 9:20 AM Chief Complaint: Chief Complaint Patient presents with Establish Care Shortness of Breath Chest Pain History of PresentIllness: Kaylynn Durán is a 53 y.o. female with medical history mentioned below who presents to clinic today to establish care with cardiology. The patient was seen in the emergency department on 08/01/2023 with multiple complaints including some chest discomfort. Her blood work was eventually negative including a negative troponin. Her EKG did not show any ischemic changes. The patient was discharged from the emergency department with plans to follow-up with Cardiology as an outpatient. The patient claims she has had some shortness of breath over the last few months but thinks that her symptoms have gotten a bit worse over the last 2 months or so. She endorses shortness of breath with exertion especially if she goes up and down the stairs. She is also had a couple of episodes of pressure in her chest with the last 1 being in July when she was evaluated in the emergency department. She recently had up titration of her antihypertensives by the primary care physician and since that time she is starting to feel better. Her shortness of breath is improved. She is not having any further episodes of chest discomfort. She continues to endorse some lower extremity edema which seems to be improving somewhat now since up titration of her medications. The patient does sleep on an incline and due to her seasonal allergies and severe PND. She also endorses snoring and excessive daytime sleepiness and fatigue. She has never been screened for sleep apnea in the past. She continues to smoke a little less than a pack per day. Her atorvastatin was also recently uptitrated to 40 mg daily by her primary care physician. She thinks her mother might of had some myocardial infarction history in the past but she does not think she ever had any bypass surgery or stents put in. Past Medical History: - Diabetes - Hypertension - Dyslipidemia - Hypothyroidism - Venous insufficiency - Tobacco use Past Surgical History Past Surgical History: Procedure Laterality Date GALLBLADDER SURGERY HYSTERECTOMY TONSILLECTOMY Family History Family History Problem Relation Name Age of Onset Cancer Mother Other cancer Mother heart issues Heart attack Mother Flynn's palsy Mother had once No Known Problems Father Alopecia Daughter No Known Problems Daughter No Known Problems Son No Known Problems Son Social History Social History Tobacco Use Smoking status: Every Day Current packs/day: 1.00 Average packs/day: 1 pack/day for 38.0 years (38.0 ttl pk-yrs) Types: Cigarettes Passive exposure: Current Smokeless tobacco: Never Vaping Use Vaping status: Never Used Substance Use Topics Alcohol use: Not Currently Comment: does not drink Drug use: Never Allergies: Allergies Allergen Reactions Ciprofloxacin Itching and Swelling Penicillins Hives hives Medications: Current Outpatient Medications: albuterol 108 (90 Base) MCG/ACT inhaler, Inhale 2 Puffs as instructed every 6 hours as needed for wheezing/shortness of breath. With spacer, Disp: 18 g, Rfl: 3 atorvastatin (Lipitor) 40 MG tablet, Take 1 tablet (40 mg) by mouth daily., Disp: 90 tablet, Rfl: 3 fluticasone (Flonase) 50 MCG/ACT nasal spray, Administer 2 sprays into each nostril daily. Shake gently. Before first use, prime pump. After use, clean tip and replace cap., Disp: 16 g, Rfl: 11 levothyroxine (Synthroid, Levoxyl) 100 MCG tablet, TAKE 1 TABLET BY MOUTH DAILY, Disp: 90 tablet, Rfl: 1 lisinopril-hydroCHLOROthiazide 10-12.5 MG tablet, Take 2 tablets by mouth in the morning., Disp: 180 tablet, Rfl: 3 meclizine (Antivert) 25 MG tablet, TAKE 1 TABLET BY MOUTH TWICE DAILY NEEDED for dizziness/vertigo, Disp: 30 tablet, Rfl: 3 metFORMIN XR (Glucophage-XR) 500 MG 24 hr tablet, Take 1 tablet (500 mg) by mouth daily (with breakfast). Do not crush, chew, or split., Disp: 90 tablet, Rfl: 3 montelukast (Singulair) 10 MG tablet, Take 1 tablet (10 mg) by mouth Nightly., Disp: 90 tablet, Rfl: 3 metoprolol tartrate (Lopressor) 50 MG tablet, Take 2 tablets (100 mg) by mouth See administration instructions for 2 doses. Check your HR the evening before your test and if HR >70 take a 2 tablets, If HR is between 60-70 then take 1 tab, If HR is <60 do not take any. Repeat 2 hours before your test., Disp: 4 tablet, Rfl: 0 Review of Systems: All full and complete review of systems was performed and was negative except for what is mentioned in the HPI. Physical Examination: Vitals: Vitals: 09/21/23 0854 BP: 118/74 BP Location: Left arm Patient Position: Sitting BP Cuff Size: Large adult Pulse: 74 Resp: 16 SpO2: 93% Weight: 220 lb 12.8 oz (100 kg) Height: 5' 4 (1.626 m) Body mass index is 37.9 kg/m . Physical Exam: GEN: NAD, A&Ox3, cooperative, mood appropriate Neck: No JVD. Heart: regular rate and rhythm, No murmurs or rubs. Lungs: Clear to ausculation bilaterally without any wheezing or crackles. Abd: Soft, non-tender, non-distended. Ext: 1+ pitting edema of the shins Laboratory Tests: Lab Results Component Value Date WBC 10.5 08/01/2023 HGB 16.8 (H) 08/01/2023 HCT 48.4 (H) 08/01/2023 MCV 90.1 08/01/2023 PLT 284 08/01/2023 Lab Results Component Value Date GLUCOSE 96 08/01/2023 CALCIUM 9.7 08/01/2023 NA 135 08/01/2023 K 4.7 08/01/2023 CO2 27 08/01/2023 CL 98 08/01/2023 BUN 21 (H) 08/01/2023 CREATININE 0.83 08/01/2023 EKG 08/02/2023 (Personally reviewed) Sinus rhythm, Normal EKG Assessment and Plan: # Chest pain/SOB: The patient's main concern is shortness of breath with exertion which seems to be going on for the last couple months. With recent titration of her antihypertensives, she is starting to endorse some improvement in her symptoms. She has multiple reasons to be short of breath including extensive smoking history and current smoker. She has never been screened for or diagnosed with COPD. She is also somewhat overweight which may be contributing to her shortness of breath as well. The patient is also endorsing symptoms likely consistent with sleep apnea which may be contributing to her shortness of breath. Having said that, the patient does have multiple risk factors for underlying coronary artery disease including diabetes, hypertension, dyslipidemia and tobacco use. I think it would be to rule out obstructive CAD as the cause of her symptoms. Given her age and risk factor profile, I would like to proceed with CT coronary angiogram to rule out obstructive CAD as the cause of her symptoms. 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 I will also do an echocardiogram to evaluate her LV function given her lower extremity edema to rule out any valvular abnormalities or LV dysfunction. Will also make a referral to the sleep medicine team to workup potential underlying sleep apnea. # Hypertension: Her blood pressure is well-controlled in clinic today. She does not monitor her blood pressures at home. I encouraged the patient to invest into blood pressure monitor and keep track of her blood pressures at home. Currently taking lisinopril-hydrochlorothiazide 10-12.5 mg daily. # Dyslipidemia: Recently uptitrated on her statin to 40 mg of atorvastatin daily. Continue that medication for the time being. Further titration and recommendation pending the results of the CT coronary angiogram. RTC in 6 months for LISA visit and 12 months for MD visit Margarita Corbin MD, [facility] Panel Machine Tender [facility], [facility] [address] [place] [address] p [phone] f [phone] [email or web address] documented in this encounter [facility] 09-21-2023 History of Present illness Narrative [facility] Card[facility] Note DATE of SERVICE:09/21/23 TIME of SERVICE: 9:20 AM Chief Complaint: Chief Complaint Patient presents with Establish Care Shortness of Breath Chest Pain History of PresentIllness: Kaylynn Durán is a 53 y.o. female with medical history mentioned below who presents to clinic today to establish care with cardiology. The patient was seen in the emergency department on 08/01/2023 with multiple complaints including some chest discomfort. Her blood work was eventually negative including a negative troponin. Her EKG did not show any ischemic changes. The patient was discharged from the emergency department with plans to follow-up with Cardiology as an outpatient. The patient claims she has had some shortness of breath over the last few months but thinks that her symptoms have gotten a bit worse over the last 2 months or so. She endorses shortness of breath with exertion especially if she goes up and down the stairs. She is also had a couple of episodes of pressure in her chest with the last 1 being in July when she was evaluated in the emergency department. She recently had up titration of her antihypertensives by the primary care physician and since that time she is starting to feel better. Her shortness of breath is improved. She is not having any further episodes of chest discomfort. She continues to endorse some lower extremity edema which seems to be improving somewhat now since up titration of her medications. The patient does sleep on an incline and due to her seasonal allergies and severe PND. She also endorses snoring and excessive daytime sleepiness and fatigue. She has never been screened for sleep apnea in the past. She continues to smoke a little less than a pack per day. Her atorvastatin was also recently uptitrated to 40 mg daily by her primary care physician. She thinks her mother might of had some myocardial infarction history in the past but she does not think she ever had any bypass surgery or stents put in. Past Medical History: - Diabetes - Hypertension - Dyslipidemia - Hypothyroidism - Venous insufficiency - Tobacco use Past Surgical History Past Surgical History: Procedure Laterality Date GALLBLADDER SURGERY HYSTERECTOMY TONSILLECTOMY Family History Family History Problem Relation Name Age of Onset Cancer Mother Other cancer Mother heart issues Heart attack Mother Flynn's palsy Mother had once No Known Problems Father Alopecia Daughter No Known Problems Daughter No Known Problems Son No Known Problems Son Social History Social History Tobacco Use Smoking status: Every Day Current packs/day: 1.00 Average packs/day: 1 pack/day for 38.0 years (38.0 ttl pk-yrs) Types: Cigarettes Passive exposure: Current Smokeless tobacco: Never Vaping Use Vaping status: Never Used Substance Use Topics Alcohol use: Not Currently Comment: does not drink Drug use: Never Allergies: Allergies Allergen Reactions Ciprofloxacin Itching and Swelling Penicillins Hives hives Medications: Current Outpatient Medications: albuterol 108 (90 Base) MCG/ACT inhaler, Inhale 2 Puffs as instructed every 6 hours as needed for wheezing/shortness of breath. With spacer, Disp: 18 g, Rfl: 3 atorvastatin (Lipitor) 40 MG tablet, Take 1 tablet (40 mg) by mouth daily., Disp: 90 tablet, Rfl: 3 fluticasone (Flonase) 50 MCG/ACT nasal spray, Administer 2 sprays into each nostril daily. Shake gently. Before first use, prime pump. After use, clean tip and replace cap., Disp: 16 g, Rfl: 11 levothyroxine (Synthroid, Levoxyl) 100 MCG tablet, TAKE 1 TABLET BY MOUTH DAILY, Disp: 90 tablet, Rfl: 1 lisinopril-hydroCHLOROthiazide 10-12.5 MG tablet, Take 2 tablets by mouth in the morning., Disp: 180 tablet, Rfl: 3 meclizine (Antivert) 25 MG tablet, TAKE 1 TABLET BY MOUTH TWICE DAILY NEEDED for dizziness/vertigo, Disp: 30 tablet, Rfl: 3 metFORMIN XR (Glucophage-XR) 500 MG 24 hr tablet, Take 1 tablet (500 mg) by mouth daily (with breakfast). Do not crush, chew, or split., Disp: 90 tablet, Rfl: 3 montelukast (Singulair) 10 MG tablet, Take 1 tablet (10 mg) by mouth Nightly., Disp: 90 tablet, Rfl: 3 metoprolol tartrate (Lopressor) 50 MG tablet, Take 2 tablets (100 mg) by mouth See administration instructions for 2 doses. Check your HR the evening before your test and if HR >70 take a 2 tablets, If HR is between 60-70 then take 1 tab, If HR is <60 do not take any. Repeat 2 hours before your test., Disp: 4 tablet, Rfl: 0 Review of Systems: All full and complete review of systems was performed and was negative except for what is mentioned in the HPI. Physical Examination: Vitals: Vitals: 09/21/23 0854 BP: 118/74 BP Location: Left arm Patient Position: Sitting BP Cuff Size: Large adult Pulse: 74 Resp: 16 SpO2: 93% Weight: 220 lb 12.8 oz (100 kg) Height: 5' 4 (1.626 m) Body mass index is 37.9 kg/m . Physical Exam: GEN: NAD, A&Ox3, cooperative, mood appropriate Neck: No JVD. Heart: regular rate and rhythm, No murmurs or rubs. Lungs: Clear to ausculation bilaterally without any wheezing or crackles. Abd: Soft, non-tender, non-distended. Ext: 1+ pitting edema of the shins Laboratory Tests: Lab Results Component Value Date WBC 10.5 08/01/2023 HGB 16.8 (H) 08/01/2023 HCT 48.4 (H) 08/01/2023 MCV 90.1 08/01/2023 PLT 284 08/01/2023 Lab Results Component Value Date GLUCOSE 96 08/01/2023 CALCIUM 9.7 08/01/2023 NA 135 08/01/2023 K 4.7 08/01/2023 CO2 27 08/01/2023 CL 98 08/01/2023 BUN 21 (H) 08/01/2023 CREATININE 0.83 08/01/2023 EKG 08/02/2023 (Personally reviewed) Sinus rhythm, Normal EKG Assessment and Plan: # Chest pain/SOB: The patient's main concern is shortness of breath with exertion which seems to be going on for the last couple months. With recent titration of her antihypertensives, she is starting to endorse some improvement in her symptoms. She has multiple reasons to be short of breath including extensive smoking history and current smoker. She has never been screened for or diagnosed with COPD. She is also somewhat overweight which may be contributing to her shortness of breath as well. The patient is also endorsing symptoms likely consistent with sleep apnea which may be contributing to her shortness of breath. Having said that, the patient does have multiple risk factors for underlying coronary artery disease including diabetes, hypertension, dyslipidemia and tobacco use. I think it would be to rule out obstructive CAD as the cause of her symptoms. Given her age and risk factor profile, I would like to proceed with CT coronary angiogram to rule out obstructive CAD as the cause of her symptoms. 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 I will also do an echocardiogram to evaluate her LV function given her lower extremity edema to rule out any valvular abnormalities or LV dysfunction. Will also make a referral to the sleep medicine team to workup potential underlying sleep apnea. # Hypertension: Her blood pressure is well-controlled in clinic today. She does not monitor her blood pressures at home. I encouraged the patient to invest into blood pressure monitor and keep track of her blood pressures at home. Currently taking lisinopril-hydrochlorothiazide 10-12.5 mg daily. # Dyslipidemia: Recently uptitrated on her statin to 40 mg of atorvastatin daily. Continue that medication for the time being. Further titration and recommendation pending the results of the CT coronary angiogram. RTC in 6 months for LISA visit and 12 months for MD visit Margarita Corbin MD, [facility] Panel Machine Tender [facility] [place] [id number] p [phone] f [phone] [email or web address] documented in this encounter [facility] 09-21-2023 Miscellaneous Notes Addended by: MELANIE PERES on: 12/01/2023 09:26 AM Modules accepted: Orders documented in this encounter [facility] 09-21-2023 Note Addended by: MELANIE PERES on: 12/01/2023 09:26 AM Modules accepted: Orders [facility] 09-21-2023 Note Addended by: MELANIE PERES on: 12/01/2023 09:26 AM Modules accepted: Orders [facility] 09-03-2023 History of Present illness Narrative Images from the original note were not included. [facility] [address] [facility] [address] Dept: [phone] Dept Visit Date: 09/03/23 HPI: Kaylynn Durán is a 53 y.o. female who presents today for: Chief Complaint Patient presents with Follow-up Pt here to follow up on blood pressure. Has not been checking it at home. HPI Seen last month for routine exam. BP was high, chest, pain, lower extremity edema. Lisinopril-hydrochlorothiazide was increased. Edema down but not resolved. No more exertional chest pain. Appointment with cardiology scheduled 09/20 for further ascvd risk. Ongoing back pain, low back with right sided sciatica. Intermittent but persistent for several years. Labs showed new onset diabetes-A1C was 6.5. I started metformin 500 mg daily. Tolerating well thus far. To repeat labs in 2 months. TSH was a little low, to repeat in 2 months. 100 mcg daily. Lipitor was increased to 40 mg as not to goal. Wt Readings from Last 3 Encounters: 09/03/23 222 lb (101 kg) 07/30/23 223 lb (101 kg) 10/16/22 219 lb (99.3 kg) Current Outpatient Medications Medication Sig Dispense Refill albuterol 108 (90 Base) MCG/ACT inhaler Inhale 2 Puffs as instructed every 6 hours as needed for wheezing/shortness of breath. With spacer 18 g 3 atorvastatin (Lipitor) 40 MG tablet Take 1 tablet (40 mg) by mouth daily. 90 tablet 3 fluticasone (Flonase) 50 MCG/ACT nasal spray Administer 2 sprays into each nostril daily. Shake gently. Before first use, prime pump. After use, clean tip and replace cap. 16 g 11 levothyroxine (Synthroid, Levoxyl) 100 MCG tablet TAKE 1 TABLET BY MOUTH DAILY 90 tablet 1 lisinopril-hydroCHLOROthiazide 10-12.5 MG tablet Take 2 tablets by mouth in the morning. 180 tablet 3 meclizine (Antivert) 25 MG tablet TAKE 1 TABLET BY MOUTH TWICE DAILY NEEDED for dizziness/vertigo 30 tablet 3 metFORMIN XR (Glucophage-XR) 500 MG 24 hr tablet Take 1 tablet (500 mg) by mouth daily (with breakfast). Do not crush, chew, or split. 90 tablet 3 montelukast (Singulair) 10 MG tablet Take 1 tablet (10 mg) by mouth Nightly. 90 tablet 3 No current facility-administered medications for this visit. Allergies Allergen Reactions Ciprofloxacin Itching and Swelling Penicillins Hives hives Past Medical History: Diagnosis Date Edema swelling in legs High blood pressure High cholesterol Thyroid condition underactive Social History Tobacco Use Smoking status: Every Day Packs/day: 1.00 Years: 38.00 Additional pack years: 0.00 Total pack years: 38.00 Types: Cigarettes Passive exposure: Current Smokeless tobacco: Never Substance Use Topics Alcohol use: Not Currently Comment: does not drink Subjective: Review of Systems Constitutional: Negative for fatigue and unexpected weight change. HENT: Positive for congestion and postnasal drip. Eyes: Negative for visual disturbance. Respiratory: Positive for cough. Negative for shortness of breath and wheezing. Cardiovascular: Positive for chest pain and leg swelling. Negative for palpitations. Musculoskeletal: Positive for back pain. Negative for gait problem. Neurological: Positive for headaches. Negative for dizziness. Objective: BP 124/72 (BP Location: Right arm, Patient Position: Sitting, BP Cuff Size: Large adult) Pulse 69 Temp 36.7 C (98.1 F) (Temporal) Ht 5' 4 (1.626 m) Wt 222 lb (101 kg) LMP 10/16/1997 (Approximate) SpO2 94% BMI 38.11 kg/m Physical Exam Vitals and nursing note reviewed. Constitutional: General: She is not in acute distress. Appearance: Normal appearance. She is obese. She is not ill-appearing or toxic-appearing. Cardiovascular: Heart sounds: Normal heart sounds. Pulmonary: Breath sounds: Normal breath sounds. Musculoskeletal: Right lower le+ Edema present. Left lower le+ Edema present. Neurological: Mental Status: She is alert and oriented to person, place, and time. Assessment: Diagnosis Plan 1. Chronic right-sided low back pain with right-sided sciatica [facility] 2. Venous insufficiency of both lower extremities 3. Postablative hypothyroidism 4. Mixed hyperlipidemia 5. Essential hypertension Plan: Beverly was seen today for follow-up. Diagnoses and all orders for this visit: Chronic right-sided low back pain with right-sided sciatica (Primary) See PT. - [facility]; Future Venous insufficiency of both lower extremities Improved with increased diuretic. DASH, elevate the extremities in evening. Again encouraged compression stockings. Postablative hypothyroidism Stable symptoms. To recheck labs in 2 months. Mixed hyperlipidemia Uncontrolled. Recently increased to the statin, continue same. Essential hypertension Chronic, much improved with increased medication. Continue same. Follow up in about 6 months (around 03/04/2024) for chronic conditions. Goals None 'LENCHO Portillo 09/03/2023 12:16 PM documented in this encounter [facility] 09-03-2023 Instructions LUCINDA Sandy CNP - 09/03/2023 12:00 PM EDT Be sure to complete labs in 2 months to recheck the sugar and thyroid. See us in 3 months. documented in this encounter [facility] 09-02-2023 Telephone encounter Note (2nd attempt) Called today to schedule screening colonoscopy (surveillance program) Left message to call colorectal office at [phone] [facility] 09-02-2023 Miscellaneous Notes (2nd attempt) Called today to schedule screening colonoscopy (surveillance program) Left message to call colorectal office at [phone] Screening Colonoscopy (Screening/surveillance program) Called pt today to schedule colonoscopy Left message to call colorectal office at [phone] documented in this encounter [facility] 09-02-2023 Telephone encounter Note Recent Visits Date Type Provider Dept 07/30/23 Office Visit LUCINDA Sandy CNP [facility] 10/16/22 Office Visit Trev Sampson MD [facility] Showing recent visits within past 365 days and meeting all other requirements Future Appointments Date Type Provider Dept 09/03/23 Appointment LUCINDA Sandy CNP [facility] Showing future appointments within next 90 days and meeting all other requirements Requested Prescriptions Pending Prescriptions Disp Refills levothyroxine (Synthroid, Levoxyl) 100 MCG tablet [Pharmacy Med Name: levothyroxine 100 mcg tablet] 90 tablet 0 Sig: TAKE 1 TABLET BY MOUTH DAILY Provider: LUCINDA Timmons CNP [id number] - [place], [place] - [address] [facility] [id number] Verified pharmacy: yes Verified day(s) supplied: yes Verified refill(s) needed (previous prescription showing no refills in chart): Yes Have you received any controlled medications from any other provider? Overdue for visit: No If yes - patient scheduled? N/A Most recent labs completed in chart? Yes Thyroid: Lab Results Component Value Date TSH 0.28 (L) 07/30/2023 [facility] 09-02-2023 Miscellaneous Notes Recent Visits Date Type Provider Dept 07/30/23 Office Visit LUCINDA Sandy CNP [facility] 10/16/22 Office Visit Trev Sampson MD [facility] Showing recent visits within past 365 days and meeting all other requirements Future Appointments Date Type Provider Dept 09/03/23 Appointment LUCINDA Sandy CNP [facility] Showing future appointments within next 90 days and meeting all other requirements Requested Prescriptions Pending Prescriptions Disp Refills levothyroxine (Synthroid, Levoxyl) 100 MCG tablet [Pharmacy Med Name: levothyroxine 100 mcg tablet] 90 tablet 0 Sig: TAKE 1 TABLET BY MOUTH DAILY Provider: Elly Bowie APRN - JILLIAN [id number] - [place], [place] - [address] [place] [address] Verified pharmacy: yes Verified day(s) supplied: yes Verified refill(s) needed (previous prescription showing no refills in chart): Yes Have you received any controlled medications from any other provider? Overdue for visit: No If yes - patient scheduled? N/A Most recent labs completed in chart? Yes Thyroid: Lab Results Component Value Date TSH 0.28 (L) 07/30/2023 documented in this encounter [facility] 08-27-2023 Telephone encounter Note Screening Colonoscopy (Screening/surveillance program) Called pt today to schedule colonoscopy Left message to call colorectal office at [phone] [facility] 08-01-2023 Emergency department Note Triage notes and assessment reviewed with MATHIEU Garcia; acuity assigned. Deborah Granados RN 08/01/231642 [facility] 08-01-2023 Emergency department Note Triage notes and assessment reviewed with MATHIEU Garcia; acuity assigned. Deborah Granados RN 08/01/231642 Pt presents to the ED with multiple health concerns. Pt states she has chest pressure, nausea, dizziness for the last week. Pt states no relief. Pt states she has increased SOB, lethargy, bilaterally lower extremities edema that has been ongoing for years. Pt states she is not able to sleep flat at night due to not being able to breathe properly. Pt states she has had productive cough with green phlegm. Pt states she finds her self in a mental fog and constantly forgetting things. Pt call light is within reach documented in this encounter [facility] 08-01-2023 Emergency department Triage note Pt presents to the ED with multiple health concerns. Pt states she has chest pressure, nausea, dizziness for the last week. Pt states no relief. Pt states she has increased SOB, lethargy, bilaterally lower extremities edema that has been ongoing for years. Pt states she is not able to sleep flat at night due to not being able to breathe properly. Pt states she has had productive cough with green phlegm. Pt states she finds her self in a mental fog and constantly forgetting things. Pt call light is within reach [facility] 07-30-2023 History of Present illness Narrative Images from the original note were not included. [facility] [address] [facility] [id number] Dept: [phone] Dept Visit Date: 07/30/23 HPI: Kaylynn Durán is a 53 y.o. female who presents today for: Chief Complaint Patient presents with Annual Exam CPE. Needs refills. Has been having chest pressure, a lot of swelling in feet/legs, back pain that radiates down both legs. When she eats, stomach automatically bloats, thinks hernia is popping out. Acid reflux. HPI Last seen here 1 year ago. Busy at work, working 6-7 days per week. Weight is stable. Active at work but no exercise. Diet could be better. +fast food, 1-2 meals per day. Ongoing chronic right sided low back pain that is intermittent. Radiates to both buttocks and leg. No numbness, tingling or weakness. Has hypertension, hyperlipidemia, +long time tobacco user, obesity. Reports today having chest pressure with activity, associated dyspnea. Improves with rest. BP is treated with lisinopril-hydrochlorothiazide. BP is high today. Ongoing lower extremity edema. This was a problem last year as well. Not wearing compression stockings, on feet a lot with work. On lipitor. Treated for asthma with albuterol, singulair but suspect there is likely a component of copd. Advised of lung cancer screening given > 30 year pack per day smoker. Uses flonase for the rhinorrhea. On levothyroxine 100 mcg daily. TSH was increased on last years labs, no change was made but she never rechecked the labs as recommended. Due for colon cancer screening, now having abdominal bloating. No BRBPR diarrhea, constipation, nausea or vomiting. Current Outpatient Medications Medication Sig Dispense Refill atorvastatin (Lipitor) 20 MG tablet Take 1 tablet (20 mg) by mouth daily. 90 tablet 0 fluticasone (Flonase) 50 MCG/ACT nasal spray Administer 2 sprays into each nostril daily. Shake gently. Before first use, prime pump. After use, clean tip and replace cap. 16 g 11 levothyroxine (Synthroid, Levoxyl) 100 MCG tablet TAKE 1 TABLET BY MOUTH DAILY 90 tablet 0 albuterol 108 (90 Base) MCG/ACT inhaler Inhale 2 Puffs as instructed every 6 hours as needed for wheezing/shortness of breath. With spacer 18 g 3 lisinopril-hydroCHLOROthiazide 10-12.5 MG tablet Take 2 tablets by mouth in the morning. 180 tablet 3 meclizine (Antivert) 25 MG tablet TAKE 1 TABLET BY MOUTH TWICE DAILY NEEDED for dizziness/vertigo 30 tablet 3 montelukast (Singulair) 10 MG tablet Take 1 tablet (10 mg) by mouth Nightly. 90 tablet 3 No current facility-administered medications for this visit. Allergies Allergen Reactions Ciprofloxacin Itching and Swelling Penicillins Hives hives Past Medical History: Diagnosis Date Edema swelling in legs High blood pressure High cholesterol Thyroid condition underactive Social History Tobacco Use Smoking status: Every Day Packs/day: 1.00 Years: 38.00 Additional pack years: 0.00 Total pack years: 38.00 Types: Cigarettes Passive exposure: Current Smokeless tobacco: Never Substance Use Topics Alcohol use: Not Currently Comment: does not drink Subjective: Review of Systems Constitutional: Negative for activity change, appetite change, chills, fatigue and unexpected weight change. Eyes: Negative for visual disturbance. Respiratory: Positive for cough and shortness of breath. Negative for wheezing. Cardiovascular: Positive for chest pain and leg swelling. Negative for palpitations. Gastrointestinal: Negative for abdominal pain, blood in stool, constipation, diarrhea, nausea and vomiting. Genitourinary: Negative for difficulty urinating. Musculoskeletal: Positive for back pain. Negative for arthralgias, gait problem, joint swelling and myalgias. Neurological: Negative for dizziness and headaches. Psychiatric/Behavioral: Negative for dysphoric mood and sleep disturbance. The patient is not nervous/anxious. Objective: BP (!) 158/88 Pulse 66 Ht 5' 4 (1.626 m) Wt 223 lb (101 kg) LMP 10/16/1997 (Approximate) SpO2 97% BMI 38.28 kg/m Physical Exam Vitals and nursing note reviewed. Constitutional: General: She is not in acute distress. Appearance: Normal appearance. She is not ill-appearing or toxic-appearing. HENT: Head: Normocephalic and atraumatic. Right Ear: Tympanic membrane, ear canal and external ear normal. Left Ear: Tympanic membrane, ear canal and external ear normal. Mouth/Throat: Mouth: Mucous membranes are moist. Pharynx: Oropharynx is clear. Eyes: Conjunctiva/sclera: Conjunctivae normal. Pupils: Pupils are equal, round, and reactive to light. Cardiovascular: Rate and Rhythm: Normal rate and regular rhythm. Pulses: Normal pulses. Heart sounds: Normal heart sounds. No murmur heard. Pulmonary: Effort: Pulmonary effort is normal. No respiratory distress. Breath sounds: Normal breath sounds. No wheezing or rhonchi. Abdominal: General: Bowel sounds are normal. There is no distension. Palpations: Abdomen is soft. Tenderness: There is no abdominal tenderness. There is no guarding. Musculoskeletal: Cervical back: Normal range of motion. Right lower leg: No edema. Left lower leg: No edema. Lymphadenopathy: Cervical: No cervical adenopathy. Skin: General: Skin is warm and dry. Capillary Refill: Capillary refill takes less than 2 seconds. Findings: No rash. Neurological: Mental Status: She is alert and oriented to person, place, and time. Cranial Nerves: No cranial nerve deficit. Motor: No weakness. Gait: Gait normal. Psychiatric: Mood and Affect: Mood normal. Assessment: Diagnosis Plan 1. Non-seasonal allergic rhinitis due to other allergic trigger albuterol 108 (90 Base) MCG/ACT inhaler montelukast (Singulair) 10 MG tablet 2. Mild intermittent asthma without complication montelukast (Singulair) 10 MG tablet 3. Primary hypertension lisinopril-hydroCHLOROthiazide 10-12.5 MG tablet Comprehensive metabolic panel Comprehensive metabolic panel [facility] 4. Abdominal bloating [facility] 5. Screening for colon cancer [facility] 6. Encounter for screening mammogram for malignant neoplasm of breast Bilateral screening mammogram with tomosynthesis 7. Class 2 obesity due to excess calories without serious comorbidity with body mass index (BMI) of 38.0 to 38.9 in adult [facility] 8. Venous insufficiency of both lower extremities [facility] 9. Encounter for routine adult physical exam with abnormal findings CBC Hemoglobin A1c CBC Hemoglobin A1c 10. Cigarette nicotine dependence without complication [facility] 11. Acquired hypothyroidism TSH TSH 12. Vertigo meclizine (Antivert) 25 MG tablet 13. Chest pain in adult ECG 12 lead - CLINIC PERFORMED [facility] 14. Mixed hyperlipidemia Lipid panel Lipid panel [facility] 15. Chronic right-sided low back pain with bilateral sciatica Plan: Beverly was seen today for annual exam. Diagnoses and all orders for this visit: Non-seasonal allergic rhinitis due to other allergic trigger (Primary) Chronic, controlled. Same meds. - albuterol 108 (90 Base) MCG/ACT inhaler; Inhale 2 Puffs as instructed every 6 hours as needed for wheezing/shortness of breath. With spacer - montelukast (Singulair) 10 MG tablet; Take 1 tablet (10 mg) by mouth Nightly. Mild intermittent asthma without complication Chronic, stable. Same meds. Should quit smoking. - montelukast (Singulair) 10 MG tablet; Take 1 tablet (10 mg) by mouth Nightly. Primary hypertension Chronic, uncontrolled. Worse on manual recheck. Increase the lisinopril-hydrochlorothiazide. Check labs. See cards. High risk cvd. - lisinopril-hydroCHLOROthiazide 10-12.5 MG tablet; Take 2 tablets by mouth in the morning. - Comprehensive metabolic panel; Future - Comprehensive metabolic panel - [facility]; Future Abdominal bloating No altered BM's. Watch dietary triggers. See gastro. - [facility]; Future Screening for colon cancer - [facility]; Future Encounter for screening mammogram for malignant neoplasm of breast - Bilateral screening mammogram with tomosynthesis; Future Class 2 obesity due to excess calories without serious comorbidity with body mass index (BMI) of 38.0 to 38.9 in adult - [facility]; Future Venous insufficiency of both lower extremities Chronic problem. Advised to wear compression stockings (knee high) daily, off in pm. Elevate legs when able. DASH. - [facility]; Future Encounter for routine adult physical exam with abnormal findings - CBC; Future - Hemoglobin A1c; Future - CBC - Hemoglobin A1c Cigarette nicotine dependence without complication Not ready to quit. - [facility]; Future Acquired hypothyroidism Chronic, unknown. Check labs. - TSH; Future - TSH Vertigo Recurrent. Antivert prn. - meclizine (Antivert) 25 MG tablet; TAKE 1 TABLET BY MOUTH TWICE DAILY NEEDED for dizziness/vertigo Chest pain in adult New problem. Concern for elevated ascvd risk. ECG NSR, no st twave changes or arrhthymias. - ECG 12 lead - CLINIC PERFORMED - [facility]; Future Mixed hyperlipidemia Chronic, unknown. Tolerating the statin. Check labs. - Lipid panel; Future - Lipid panel - [facility]; Future Chronic right-sided low back pain with bilateral sciatica Chronic, recurrent. Home exercises provided in AVS. Follow up in about 1 month (around 08/29/2023) for bp. Goals None 'LENCHO Portillo 07/30/2023 2:40 PM documented in this encounter [facility] 06-30-2023 Telephone encounter Note Lmom advising refill was approved but that OV was needed for additional refills. Gave CAC number for pt to call and schedule CPE or advised pt can schedule through [facility]. [facility] 06-30-2023 Miscellaneous Notes Lmom advising refill was approved but that OV was needed for additional refills. Gave CAC number for pt to call and schedule CPE or advised pt can schedule through [facility]. Approving, but needs appt for additional refills. Recent Visits Date Type Provider Dept 10/16/22 Office Visit Trev Sampson MD [facility] 07/14/22 Office Visit LUCINDA Sandy CNP [facility] Showing recent visits within past 365 days and meeting all other requirements Future Appointments No visits were found meeting these conditions. Showing future appointments within next 90 days and meeting all other requirements Requested Prescriptions Pending Prescriptions Disp Refills lisinopril-hydroCHLOROthiazide 10-12.5 MG tablet [Pharmacy Med Name: lisinopril 10 mg-hydrochlorothiazide 12.5 mg tablet] 90 tablet 3 Sig: Take 1 tablet by mouth in the morning. atorvastatin (Lipitor) 20 MG tablet [Pharmacy Med Name: atorvastatin 20 mg tablet] 90 tablet 3 Sig: Take 1 tablet (20 mg) by mouth daily. Provider: LUCINDA Portillo CNP Verified pharmacy: yes Verified day(s) supplied: yes Verified refill(s) needed (previous prescription showing no refills in chart): Yes Have you received any controlled medications from any other provider? Overdue for visit: No If yes - patient scheduled? N/A Most recent labs completed in chart? N/A documented in this encounter [facility] 06-29-2023 Telephone encounter Note Approving, but needs appt for additional refills. [facility] 06-29-2023 Telephone encounter Note Recent Visits Date Type Provider Dept 10/16/22 Office Visit Trev Sampson MD [facility] 07/14/22 Office Visit LUCINDA Sandy CNP [facility] Showing recent visits within past 365 days and meeting all other requirements Future Appointments No visits were found meeting these conditions. Showing future appointments within next 90 days and meeting all other requirements Requested Prescriptions Pending Prescriptions Disp Refills lisinopril-hydroCHLOROthiazide 10-12.5 MG tablet [Pharmacy Med Name: lisinopril 10 mg-hydrochlorothiazide 12.5 mg tablet] 90 tablet 3 Sig: Take 1 tablet by mouth in the morning. atorvastatin (Lipitor) 20 MG tablet [Pharmacy Med Name: atorvastatin 20 mg tablet] 90 tablet 3 Sig: Take 1 tablet (20 mg) by mouth daily. Provider: Elly Bowie APRN - JILLIAN Verified pharmacy: yes Verified day(s) supplied: yes Verified refill(s) needed (previous prescription showing no refills in chart): Yes Have you received any controlled medications from any other provider? Overdue for visit: No If yes - patient scheduled? N/A Most recent labs completed in chart? N/A [facility] 10-16-2022 History of Present illness Narrative Images from the original note were not included. [facility] [address] [facility] [address] Visit Type: Office Visit PCP: Trev Sampson MD Reason for Visit: Follow-up (Pt here today for follow up care. Pt will need refill of Albuterol inhaler. Pt was recently in there ER and prescribed Meclizine. Pt was Diagnosed with Right Sialoadenitis (Right Parotid) ) Assessment and Surekha Chaidez was seen today for follow-up. Diagnoses and all orders for this visit: Allergy, initial encounter - albuterol 108 (90 Base) MCG/ACT inhaler; Inhale 2 Puffs as instructed every 6 hours as needed for wheezing/shortness of breath. With spacer - montelukast (Singulair) 10 MG tablet; Take 1 tablet (10 mg) by mouth Nightly. - fluticasone (Flonase) 50 MCG/ACT nasal spray; Administer 2 sprays into each nostril daily. Shake gently. Before first use, prime pump. After use, clean tip and replace cap. Mild intermittent asthma without complication - montelukast (Singulair) 10 MG tablet; Take 1 tablet (10 mg) by mouth Nightly. Discussed that adding on singulair would be helpful for not only her allergies but also asthma. Refilled albuterol Sending in flonase as well. Follow up if symptoms worsen or fail to improve. Subjective HPI Kaylynn Durán presented to the office for follow up. She was in the ER on 10/09/22 secondary to right sided ear and jaw pain, which she was diagnosed with sialoadenitis which after antibiotics has resolved. She notes that she has continued to have allergy issues however which she would like to discuss. She notes that they have been worse this year than usual. She has been using an OTC allergy relief medication that she takes once a day without significant relief. She does have a history of asthma which she takes albuterol. She denies an asthma flare yet but does not that the smoke has made her allergies worse. Review of Systems Constitutional: Negative for activity change, appetite change and fatigue. HENT: Positive for congestion, postnasal drip and rhinorrhea. Negative for sore throat. Respiratory: Negative for cough and shortness of breath. Cardiovascular: Negative for chest pain. Gastrointestinal: Negative for abdominal pain, constipation, diarrhea, nausea and vomiting. Skin: Negative for rash. All other systems reviewed and are negative. Allergies Allergen Reactions Ciprofloxacin Itching and Swelling Penicillins Hives hives Outpatient Medications Prior to Visit Medication Sig Dispense Refill atorvastatin (Lipitor) 20 MG tablet Take 1 tablet (20 mg) by mouth daily. 90 tablet 3 levothyroxine (Synthroid, Levoxyl) 75 MCG tablet Take 1 tablet (75 mcg) by mouth daily. 90 tablet 0 lisinopril-hydroCHLOROthiazide 10-12.5 MG tablet Take 1 tablet by mouth in the morning. 90 tablet 3 meclizine (Antivert) 25 MG tablet TAKE 1 TABLET BY MOUTH TWICE DAILY NEEDED for dizziness/vertigo metroNIDAZOLE (Flagyl) 500 MG tablet TAKE 1 TABLET BY MOUTH THREE TIMES DAILY FOR 7 DAYS sulfamethoxazole-trimethoprim (Bactrim DS) 800-160 MG tablet Take 1 tablet by mouth 2 times daily. albuterol 108 (90 Base) MCG/ACT inhaler Inhale 2 Puffs as instructed every 6 hours as needed for wheezing/shortness of breath. With spacer No facility-administered medications prior to visit. Past Medical History: Diagnosis Date Edema swelling in legs High blood pressure High cholesterol Thyroid condition underactive Social History Socioeconomic History Marital status: Number of children: 4 Tobacco Use Smoking status: Every Day Packs/day: 1.00 Years: 38.00 Pack years: 38.00 Types: Cigarettes Passive exposure: Current Smokeless tobacco: Never Vaping Use Vaping Use: Never used Substance and Sexual Activity Alcohol use: Not Currently Comment: does not drink Drug use: Never Sexual activity: Yes Partners: Male Past Surgical History: Procedure Laterality Date GALLBLADDER SURGERY HYSTERECTOMY TONSILLECTOMY Past Surgical History: Procedure Laterality Date GALLBLADDER SURGERY HYSTERECTOMY TONSILLECTOMY Family History Problem Relation Name Age of Onset Cancer Mother Other cancer Mother heart issues Heart attack Mother Flynn's palsy Mother had once No Known Problems Father Alopecia Daughter No Known Problems Daughter No Known Problems Son No Known Problems Son Objective BP 126/79 Pulse 74 Resp 16 Ht 5' 4 (1.626 m) Wt 219 lb (99.3 kg) LMP 10/16/1997 (Approximate) SpO2 95% BMI 37.59 kg/m Physical Exam Vitals and nursing note reviewed. Constitutional: Appearance: Normal appearance. HENT: Head: Normocephalic and atraumatic. Right Ear: Tympanic membrane, ear canal and external ear normal. Left Ear: Tympanic membrane, ear canal and external ear normal. Nose: Congestion and rhinorrhea present. Mouth/Throat: Mouth: Mucous membranes are moist. Pharynx: Oropharynx is clear. Eyes: Extraocular Movements: Extraocular movements intact. Conjunctiva/sclera: Conjunctivae normal. Pupils: Pupils are equal, round, and reactive to light. Cardiovascular: Rate and Rhythm: Normal rate and regular rhythm. Pulses: Normal pulses. Heart sounds: Normal heart sounds. No murmur heard. Pulmonary: Effort: Pulmonary effort is normal. Breath sounds: Normal breath sounds. No wheezing. Abdominal: General: Abdomen is flat. Bowel sounds are normal. Palpations: Abdomen is soft. Tenderness: There is no abdominal tenderness. Musculoskeletal: General: Normal range of motion. Cervical back: Normal range of motion and neck supple. Skin: General: Skin is warm and dry. Capillary Refill: Capillary refill takes less than 2 seconds. Neurological: General: No focal deficit present. Mental Status: She is alert. Mental status is at baseline. Data Reviewed Labs: Imaging/Testing: Chart Clean Up: Medications Discontinued During This Encounter Medication Reason albuterol 108 (90 Base) MCG/ACT inhaler Reorder Trev Sampson MD 10/18/2022 11:21 PM documented in this encounter [facility] 07-14-2022 History of Present illness Narrative Images from the original note were not included. [facility] [address] [facility] [address] Dept: [phone] Dept Visit Date: 07/14/2022 HPI: Kaylynn Durán is a 52 y.o. female who presents today for: Chief Complaint Patient presents with New Patient New patient here to establish care. Annual Exam CPE. Has not been to the doctor in years. Would like to get back on medication for thyroid. Leg Swelling Both legs are red, swollen, itchy, mostly in right. Med Refill Refill pended HPI New patient here. Lots of ED visits over the years. No primary in last 7-8 years due to insurance. Most recently seen at [place] [facility] on 06/27/22 for shortness of breath, fatigue, edema. Started on bp meds. Patient Concerns Hypothyroidism: No meds last 8 years. Notes: Fatigue, weight gain. Gradual weight gain from 180-225 over last several years. Hx nodules as well-stable per pt at the time. Hypertension: Chronic problem. Was not on meds until recent ED visit. Started lisinpril-hydrochlorothiazide. BP looks good today, swelling down some. Still notes short of breath with exertion. Bilateral leg edema with erythema. Chronic Conditions See above. Health Maintenance -Cervical Cancer Screening: Unsure last, declines today. Hx of hysterectomy, does not believe cervix was removed. -Breast Cancer Screening: Last mammogram maybe about 10 years ago. Declines screening. -Colon Cancer Screening: Never, declines. Vaccinations Annual influenza: NA Tdap: Likely due. COVID: Never Shingles: Never Lifestyle Current diet: Fair. Working on increasing water intake. 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 Smokes 1/2 pack cigarettes daily, not ready to quit. Wt Readings from Last 3 Encounters: 07/14/22 225 lb (102 kg) Current Outpatient Medications Medication Sig Dispense Refill albuterol 108 (90 Base) MCG/ACT inhaler Inhale 2 Puffs as instructed every 6 hours as needed for wheezing/shortness of breath. With spacer lisinopril-hydroCHLOROthiazide 10-12.5 MG tablet Take 1 tablet by mouth in the morning. 90 tablet 3 No current facility-administered medications for this visit. Allergies Allergen Reactions Ciprofloxacin Itching and Swelling Penicillins Hives hives Past Medical History: Diagnosis Date Edema swelling in legs High blood pressure High cholesterol Thyroid condition underactive Social History Tobacco Use Smoking status: Every Day Types: Cigarettes Smokeless tobacco: Never Substance Use Topics Alcohol use: Not Currently Subjective: Review of Systems Constitutional: Positive for fatigue and unexpected weight change. HENT: Positive for congestion and postnasal drip. Eyes: Negative for visual disturbance. Respiratory: Negative for cough, shortness of breath and wheezing. Cardiovascular: Positive for leg swelling. Negative for chest pain and palpitations. Gastrointestinal: Positive for abdominal distention. Negative for abdominal pain, blood in stool, constipation, diarrhea, nausea and vomiting. Endocrine: Positive for cold intolerance and heat intolerance. Negative for polydipsia, polyphagia and polyuria. Genitourinary: Negative for difficulty urinating and menstrual problem (postmenopausal s/p hysterectomy). Musculoskeletal: Positive for myalgias (leg cramps). Negative for arthralgias and joint swelling. Skin: Positive for color change. Neurological: Positive for dizziness (vertigo). Negative for headaches. Psychiatric/Behavioral: Positive for sleep disturbance. Negative for dysphoric mood. The patient is not nervous/anxious. Objective: BP 128/74 (BP Location: Right arm, Patient Position: Sitting, BP Cuff Size: Large adult) Pulse 65 Ht 5' 4 (1.626 m) Wt 225 lb (102 kg) SpO2 94% BMI 38.62 kg/m Physical Exam Vitals and nursing note reviewed. Constitutional: General: She is not in acute distress. Appearance: Normal appearance. She is obese. She is not ill-appearing or toxic-appearing. HENT: Right Ear: Tympanic membrane, ear canal and external ear normal. Left Ear: Tympanic membrane, ear canal and external ear normal. Nose: Congestion present. Mouth/Throat: Mouth: Mucous membranes are moist. Pharynx: Oropharynx is clear. No oropharyngeal exudate or posterior oropharyngeal erythema. Eyes: Extraocular Movements: Extraocular movements intact. Conjunctiva/sclera: Conjunctivae normal. Neck: Thyroid: No thyromegaly. Cardiovascular: Rate and Rhythm: Normal rate and regular rhythm. Pulses: Normal pulses. Heart sounds: Normal heart sounds. No murmur heard. Pulmonary: Effort: Pulmonary effort is normal. No respiratory distress. Breath sounds: Normal breath sounds. No wheezing. Abdominal: General: Bowel sounds are normal. There is no distension. Palpations: Abdomen is soft. Tenderness: There is no abdominal tenderness. There is no guarding. Musculoskeletal: Right lower le+ Edema present. Left lower le+ Edema present. Comments: Associated erythema to lower extremities distal calf. No skin breakdown. Skin is dry, flaky. Lymphadenopathy: Cervical: No cervical adenopathy. Skin: General: Skin is warm and dry. Findings: Erythema present. Neurological: Mental Status: She is alert and oriented to person, place, and time. Cranial Nerves: No cranial nerve deficit. Motor: No weakness. Gait: Gait normal. Psychiatric: Mood and Affect: Mood normal. Behavior: Behavior normal. Thought Content: Thought content normal. Judgment: Judgment normal. Assessment: Diagnosis Plan 1. Screening for diabetes mellitus Hemoglobin A1c Hemoglobin A1c 2. Primary hypertension lisinopril-hydroCHLOROthiazide 10-12.5 MG tablet Comprehensive metabolic panel Comprehensive metabolic panel 3. Screening for lipid disorders Lipid panel Lipid panel 4. Screening for thyroid disorder TSH TSH 5. Class 2 obesity due to excess calories without serious comorbidity with body mass index (BMI) of 38.0 to 38.9 in adult 6. Encounter for routine adult physical exam with abnormal findings 7. Venous insufficiency of both lower extremities 8. Cigarette nicotine dependence without complication Plan: Kaylynn was seen today for new patient, annual exam, leg swelling and med refill. Diagnoses and all orders for this visit: Screening for diabetes mellitus (Primary) - Hemoglobin A1c; Future - Hemoglobin A1c Primary hypertension Chronic, improved on meds started at ED. Continue same. Check labs. Low salt diet. - lisinopril-hydroCHLOROthiazide 10-12.5 MG tablet; Take 1 tablet by mouth in the morning. - Comprehensive metabolic panel; Future - Comprehensive metabolic panel Screening for lipid disorders - Lipid panel; Future - Lipid panel Screening for thyroid disorder - TSH; Future - TSH Class 2 obesity due to excess calories without serious comorbidity with body mass index (BMI) of 38.0 to 38.9 in adult Encouraged low salt diet, adequate hydration, increasing physical activity to support weight loss. Discussed this would likely help BP, edema, allergy symptoms. Encounter for routine adult physical exam with abnormal findings Venous insufficiency of both lower extremities Has beginning signs of venous stasis dermatitis. Regular exercise, elevate legs, knee high compression stockings daily. Low salt diet. Cigarette nicotine dependence without complication Encouraged cessation. There are no diagnoses linked to this encounter. Follow up in about 3 months (around 10/13/2022) for chronic conditions. Orders Placed This Encounter Procedures Hemoglobin A1c Comprehensive metabolic panel TSH Lipid panel Any new medications were reviewed and discussed with patient; patient verbalizes understanding. Goals None Electronically signed by LENCHO Portillo. 07/14/2022 at 1:00 PM. documented in this encounter [facility] 07-14-2022 Instructions LUCINDA Sandy CNP - 07/14/2022 10:20 AM EDT Low salt diet, elevate legs, knee high compression stockings daily. The following attachments cannot be sent through Care Everywhere.Yearly Physical for Adults ([place])documented in this encounter [facility] Evaluation note Diagnosis Screening for diabetes mellitus- Primary Primary hypertension Unspecified essential hypertension Screening for lipid disorders Screening for thyroid disorder Class 2 obesity due to excess calories without serious comorbidity with body mass index (BMI) of 38.0 to 38.9 in adult Encounter for routine adult physical exam with abnormal findings Venous insufficiency of both lower extremities Cigarette nicotine dependence without complication documented in this encounter [facility] note* Diagnosis Acquired hypothyroidism Unspecified hypothyroidism documented in this encounter [facility] note* Diagnosis Allergy, initial encounter- Primary Mild intermittent asthma without complication documented in this encounter [facility] note* Diagnosis Acquired hypothyroidism Unspecified hypothyroidism documented in this encounter [facility] note* Diagnosis Primary hypertension Unspecified essential hypertension Mixed hyperlipidemia documented in this encounter [facility] note* Diagnosis Non-seasonal allergic rhinitis due to other allergic trigger- Primary Mild intermittent asthma without complication Primary hypertension Unspecified essential hypertension Abdominal bloating Flatulence, eructation, and gas pain Screening for colon cancer Special screening for malignant neoplasms, colon Encounter for screening mammogram for malignant neoplasm of breast Class 2 obesity due to excess calories without serious comorbidity with body mass index (BMI) of 38.0 to 38.9 in adult Venous insufficiency of both lower extremities Encounter for routine adult physical exam with abnormal findings Cigarette nicotine dependence without complication Acquired hypothyroidism Unspecified hypothyroidism Vertigo Dizziness and giddiness Chest pain in adult Mixed hyperlipidemia Chronic right-sided low back pain with bilateral sciatica [facility] Diagnosis Atypical chest pain- Primary Other chest pain Other fatigue Acute non intractable tension-type headache [facility] Diagnosis Acquired hypothyroidism- Primary Unspecified hypothyroidism Impaired fasting glucose Mixed hyperlipidemia [facility] Diagnosis Acquired hypothyroidism Unspecified hypothyroidism [facility] Diagnosis Chronic right-sided low back pain with right-sided sciatica- Primary Venous insufficiency of both lower extremities Postablative hypothyroidism Other postablative hypothyroidism Mixed hyperlipidemia Essential hypertension Unspecified essential hypertension [facility] Diagnosis Shortness of breath- Primary Atypical chest pain Other chest pain Snoring Other dyspnea and respiratory abnormality Primary hypertension Unspecified essential hypertension Mixed hyperlipidemia documented in this encounter [facility] note* Diagnosis Blister- Primary Other, multiple, and unspecified sites, blister, without mention of infection documented in this encounter [facility] note* Diagnosis Postablative hypothyroidism- Primary Other postablative hypothyroidism documented in this encounter [facility] note* Diagnosis Shortness of breath- Primary Atypical chest pain Other chest pain Snoring Other dyspnea and respiratory abnormality Primary hypertension Unspecified essential hypertension Mixed hyperlipidemia documented in this encounter [facility] note* Diagnosis Right elbow pain- Primary Pain in joint, upper arm documented in this encounter [facility]* Diagnosis Primary hypertension- Primary Unspecified essential hypertension Vertigo Dizziness and giddiness Mixed hyperlipidemia Cellulitis of right hand Cigarette smoker Tobacco use disorder documented in this encounter [facility] note* Diagnosis Leg swelling- Primary Swelling of limb documented in this encounter [facility]* Diagnosis Mixed hyperlipidemia Impaired fasting glucose Non-seasonal allergic rhinitis due to other allergic trigger Mild intermittent asthma without complication [facility] Diagnosis Cellulitis of right lower extremity- Primary Hypertension, unspecified type [facility]* Attachments The following attachments cannot be sent through Care Everywhere. * Home Headache Remedies ([place]) * Chest Pain, Adult ED ([place]) [facility] Attachments The following attachments cannot be sent through Care Everywhere. * Back Exercises ([place]) [facility] Instruction Text No instruction information i s available. [facility] Reason for referral (narrative)* Consultation (Routine) - Pending Review Specialty Diagnoses / Procedures Referred By Vanita jang Referred To Contact Cardiology Diagnoses Primary hypertension Class 2 obesity due to excess calories without serious comorbidity with body mass index (BMI) of 38.0 to 38.9 in adult Venous insufficiency of both lower extremities Cigarette nicotine dependence without complication Chest pain in adult Mixed hyperlipidemia Procedures TX OFFICE/OUTPATIENT NEW HIGH MDM 60 MINUTES Elly Bowie APRN - COST AND RISK ANALYSIS MANAGER [address] [place] [address] [facility] [address] [place] [address] Referral ID Status Reason Start Date Expiration Date Visits Requested Visits Authorized [id number] Pending Review Specialty Services Required 07/30/2023 07/29/2024 1 1 * Consultation (Routine) - Pending Review Specialty Diagnoses / Procedures Referred By Vanita jang Referred To Contact Gastroenterology Diagnoses Abdominal bloating Screening for colon cancer Procedures TX OFFICE/OUTPATIENT NEW HIGH MDM 60 MINUTES Elly Bowie, MUSIC PUBLICIST - COST AND RISK ANALYSIS MANAGER [address] [place] [address] [facility] [address] [place] [address] Referral ID Status Reason Start Date Expiration Date Visits Requested Visits Authorized [id number] Pending Review Specialty Services Required 07/30/2023 07/29/2024 1 1 [facility] Consultation (Routine) - Pending Review Specialty Diagnoses / Procedures Referred By Contac t Referred To Contact Cardiology Diagnoses Atypical chest pain Procedures TX OFFICE/OUTPATIENT NEW HIGH MDM 60 MINUTES Brandon Lim DO [address] [place] [address] [facility] Card [address] [place] [address] Referral ID Status Reason Start Date Expiration Date Visits Requested Visits Authorized [id number] Pending Review Specialty Services Required 08/01/2023 07/31/2024 1 1 [facility] Consultation (Routine) - Pending Review Specialty Diagnoses / Procedures Referred By Contac t Referred To Contact Pulmonology Diagnoses Snoring Procedures TX OFFICE/OUTPATIENT NEW HIGH MDM 60 MINUTES Margarita Corbin MD [address] [place] [address] [facility] [address] [place] [address] Referral ID Status Reason Start Date Expiration Date Visits Requested Visits Authorized [id number] Pending Review Specialty Services Required 09/21/2023 09/20/2024 1 1 [facility] Summary Purpose Family History No Family History Records FoundNo Family History Records FoundNo Family History Records FoundNo Family History Records FoundNo Family History Records FoundNo Family History Records FoundNo Family History Records Found Advance Directives No Advanced Directives Records FoundNo Advanced Directives Records FoundNo Advanced Directives Records FoundNo Advanced Directives Records FoundNo Advanced Directives Records FoundNo Advanced Directives Records FoundNo Advanced Directives Records Found Reason for Referral Specialty Diagnoses / Procedures Referred By Contac t Referred To Contact Physical Therapy Diagnoses Chronic right-sided low back pain with right-sided sciatica Procedures TX OFFICE/OUTPATIENT NEW HIGH MDM 60 MINUTES Elly Bowie, MUSIC PUBLICIST - COST AND RISK ANALYSIS MANAGER [address] [place] [address] [facility] Pt [address] [place] [address] Referral ID Status Reason Start Date Expiration Date Visits Requested Visits Authorized [id number] Pending Review Eval and Treat 09/03/2023 08/28/2024 99 99 Specialty Diagnoses / Procedures Referred By Contac t Referred To Contact Radiology Diagnoses Atypical chest pain Shortness of breath Procedures CTA HEART CORONARY ANGIOGRAM WITH PROV FFR-CT Margarita Corbin MD [address] [place] [address] Referral ID Status Reason Start Date Expiration Date V isits Requested Visits Authorized [id number] Pending Review 09/21/2023 09/20/2024 1 1 Specialty Diagnoses / Procedures Referred By Contac t Referred To Contact Cardiology Diagnoses Shortness of breath Procedures Transthoracic echocardiogram (TTE) complete with contrast, bubble, strain, and 3D PRN TX ECHO TTHRC R-T 2D W/WOM-MODE COMPL SPEC&COLR D TX TTE W OR WO FOL WCON,DOPPLER Margarita Corbin MD [address] [place] [address] Referral ID Status Reason Start Date Expiration Date V isits Requested Visits Authorized [id number] Pending Review 09/21/2023 09/20/2024 1 1 Specialty Diagnoses / Procedures Referred By Contac t Referred To Contact Sleep Medicine Diagnoses Snoring Procedures TX OFFICE/OUTPATIENT NEW HIGH MDM 60 MINUTES Margarita Corbin MD [address] [place] [address] [facility] Sleep [address] [place] [address] [address] [place] [address] Referral ID Status Reason Start Date Expiration Date Visits Requested Visits Authorized [id number] Pending Review Specialty Services Required 09/21/2023 09/20/2024 1 1 Additional Source Comments INFORMATION SOURCE (unrecogn ized section and content) DATE CREATED AUTHOR 03/15/2018 [employer] DATE CREATED AUTHOR AUTHOR'S ORGANIZ ATION 03/28/2020 [facility] DATE CREATED AUTHOR AUTHOR'S ORGANIZ ATION 05/07/2020 [facility] DATE CREATED AUTHOR AUTHOR'S ORGANIZ ATION 08/24/2021 [facility] DATE CREATED AUTHOR AUTHOR'S ORGANIZ ATION 10/13/2022 [facility] DATE CREATED AUTHOR AUTHOR'S ORGANIZ ATION 05/21/2024 [facility] DATE CREATED AUTHOR AUTHOR'S ORGANIZ ATION 09/18/2024 [facility] Reason for Visit (unrecogniz ed section and content) Reason Comments New Patient New patient here to establish care. Annual Exam CPE. Has not been to the doctor in years. Would like to get back on medication for thyroid. Leg Swelling Both legs are red, s wollen, itchy, mostly in right. Med Refill Refill pended Reason Comments Follow-up Pt here today for fo llow up care. Pt will need refill of Albuterol inhaler. Pt was recently in there ER and prescribed Meclizine. Pt was Diagnosed with Right Sialoadenitis (Right Parotid) Reason Comments Med Refill Reason Comments Annual Exam CPE. Needs refills. Has been having chest pressure, a lot of swelling in feet/legs, back pain that radiates down both legs. When she eats, stomach automatically bloats, thinks hernia is popping out. Acid reflux. Reason Comments multiple health concerns Reason Onset Date Comments Colon Cancer Screening 08/27/2023 Colonoscopy 08/27/2023 Screening colono scopy Reason Comments Follow-up Pt here to follow up on blood pressure. Has not been checking it at home. Reason Comments Establish Care Shortness of Breath Chest Pain Specialty Diagnoses / Procedures Referred By Contaundrea t Referred To Contact Cardiology Diagnoses Atypical chest pain Procedures TX OFFICE/OUTPATIENT NEW HIGH MDM 60 MINUTES Brandon Lim DO [address] [place] [address] [facility] [address] [place] [address] Referral ID Status Reason Start Date Expiration Date V isits Requested Visits Authorized [id number] Closed Specialty Services Required 08/01/2023 07/31/2024 1 1 Reason Onset Date Comments Patient Insurance Considered Non-Contracted 04/2023 Reason Comments Blister Patient states start ed last Wednesday, left wrist, blister, big, purple, painful and starting to get another blister on the right hand Reason Onset Date Comments Blister 11/15/2023 Reason Comments Establish Care Shortness of Breath Chest Pain Reason Comments Elbow Pain Fall Reason Comments Follow-up Med Refill Reason Comments Leg Swelling Left leg, pt sts [place] t she normally has issues with swelling, sts it started Wednesday and has continued. Pt complains of numbness and pain in the leg. Numbness Left leg, ongoing si nce Wednesday. Reason Onset Date Comments Other 04/01/2024 Scheduling Reason Comments Skin Problem Care Teams (unrecognized sec tion and content) Rn Circulating Relationship Specialty Start Date End Date Trev Sampson MD [facility] [address] [place] [address] PCP - General Family Medicine 07/14/22 Rn Circulating Relationship Specialty Start Date End Date Trev Sampson MD [address] [place] [address] [address] [place], [place] [id number] PCP - General Family Medicine 07/14/22 Rn Circulating Relationship Specialty Start Date End Date Trev Sampson MD [address] [place] [address] [address] [place] [address] PCP - General Family Medicine 07/14/22 Rn Circulating Relationship Specialty Start Date End Date Trev Sampson MD [facility] [place], [place] [id number] PCP - General Family Medicine 07/14/22 Rn Circulating Relationship Specialty Start Date End Date Trev Sampson MD [facility] [place] [address] PCP - General Family Medicine 07/14/22 Rn Circulating Relationship Specialty Start Date End Date Trev Sampson MD [address] [place] [address] PCP - General Family Medicine 07/14/22 Rn Circulating Relationship Specialty Start Date End Date Trev Sampson MD [address] [place] [address] PCP - General Family Medicine 07/14/22 Rn Circulating Relationship Specialty Start Date End Date Trev Sampson MD [address] [place] [address] PCP - General Family Medicine 07/14/22 Rn Circulating Relationship Specialty Start Date End Date Trev Sampson MD [address] [place] [address] PCP - General Family Medicine 07/14/22 Rn Circulating Relationship Specialty Start Date End Date Trev Sampson MD [address] [place] [address] PCP - General Family Medicine 07/14/22 Rn Circulating Relationship Specialty Start Date End Date Trev Sampson MD [address] [place] [address] PCP - General Family Medicine 07/14/22 Rn Circulating Relationship Specialty Start Date End Date Trev Sampson MD [address] [place] [address] PCP - General Family Medicine 07/14/22 Rn Circulating Relationship Specialty Start Date End Date Trev Sampson MD [address] [place] [address] PCP - General Family Medicine 07/14/22 Rn Circulating Relationship Specialty Start Date End Date Trev Sampson MD [address] [place] [address] PCP - General Family Medicine 07/14/22 Rn Circulating Relationship Specialty Start Date End Date Trev Sampson MD [address] [place] [address] PCP - General Family Medicine 07/14/22 Rn Circulating Relationship Specialty Start Date End Date Trev Sampson MD [address] [place] [address] PCP - General Family Medicine 07/14/22 Rn Circulating Relationship Specialty Start Date End Date Trev Sampson MD [address] [place] [address] PCP - General Family Medicine 07/14/22 Rn Circulating Relationship Specialty Start Date End Date Trev Sampson MD [address] [place] [address] PCP - General Family Medicine 07/14/22 Rn Circulating Relationship Specialty Start Date End Date Trev Sampson MD [address] [place] [address] PCP - General Family Medicine 07/14/22 Rn Circulating Relationship Specialty Start Date End Date Trev Sampson MD [address] [place] [address] PCP - General Family Medicine 07/14/22 Scheduled Active and Recently Administ ered Medications (unrecognized section and content) Medication Order 07/30/2023 07/31/2023 08/01/2023 ondansetron (Zofran) injection 4 mg (COMPLETED) 4 mg, IntraVENous, Once, On Wed08/01/23 at 1700, For 1 dose 1707 (Given - Provid er: Deborah Granados, RN) sodium chloride 0.9 % bolus 500 mL (COMPLETED) 500 mL, IntraVENous, at 500 mL/hr, Administer over 1 Hours, Once, On Wed08/01/23 at 1700, For 1 dose 1706 (New Bag - Prov ider: Radha Adrian LPN)1806 (Stopped - Provider: Radha Adrian LPN) Scheduled Medication Order 03/22/2024 03/23/2024 03/24/2024 ketorolac (Toradol) injection 15 mg (COMPLETED) 15 mg, IntraMUSCular, Once, On Wed03/24/24 at 0050, For 1 dose 0052 (Given - Provid er: Tigist Lao RN) Scheduled Medication Order 09/13/2024 09/14/2024 09/15/2024 meloxicam (Mobic) tablet 7.5 mg (COMPLETED) 7.5 mg, Oral, Once, On Wed09/15/24 at 1205, For 1 dose 1206 (Given - Provid er: Mercedez Urrutia RN) FOR RECORDS PERTAINING TO PATIENTS WHO ARE OR HAVE BEEN ENROLLED IN A CHEMICAL DEPENDENCY/SUBSTANCEABUSE PROGRAM, SOME INFORMATION MAY BE OMITTED. This clinical summary was aggregated from multiple sources. Caution should be exercised in using it in the provision of clinical care. This summary normalizes information from multiple sources, and as a consequence, information in this document may materially change the coding, format and clinical context of patient data. In addition, data may be omitted in some cases. CLINICAL DECISIONS SHOULD BE BASED ON THE PRIMARY CLINICAL RECORDS. [employer] provides no warranty or guarantee of the accuracy or completeness of information in this document.
[2024-10-19 01:09] VITALS: BP 156/82; PULSE 69; RESP 18; TEMP 36.9; O2SAT 96
--- NOTE | 2024-10-19 01:26 | EX.ED.DYSGE1 ---
HPI History of Present Illness Chief Complaint: Cellulitis Informant: patient Narrative Narrative: Patient is a 54-year-old female with past medical history of diabetes currently on metformin as well as hypothyroidism and hyperlipidemia. She states she was seen roughly a month ago secondary to leg swelling and redness and diagnosed with cellulitis and placed on Keflex. She states that despite taking that there was really minimal symptom improvement. She reports that she has been taking all of her home medications as directed but she feels like there is increased discomfort and swelling to her legs. She is concerned that she has developed cellulitis once again and therefore comes in for evaluation. She denies any recent travel surgery or history of DVT/PE PFSH PFSH Home Medications ?Medication ?Instructions ?Recorded ?Last Taken ?Type atorvastatin 10 mg tablet 10 mg PO DAILY 04/28/24 Unknown History hydrochlorothiazide 12.5 mg tablet 12.5 mg PO DAILY 04/28/24 Unknown History levothyroxine 125 mcg tablet 125 mcg PO DAILY 04/28/24 04/27/24 History (Euthyrox) Allergy/AdvReac Type Severity Reaction Status Date / Time ciprofloxacin (From Cipro) Allergy Intermediate Swelling Verified 10/18/24 23:21 Penicillins Allergy Mild Hives Verified 10/18/24 23:21 Surgical History History of tonsillectomy H/O: hysterectomy Social History Smoking Status: Current every day smoker tobacco type: cigarettes ROS ROS ED Constitutional Constitutional ED: Denies chills or fever(s) Eyes Eyes: Denies change in vision ENT ENT ED: Reports rhinorrhea and sore throat Cardiovascular Cardiovascular: Denies chest pain Respiratory/Chest Respiratory/Chest: Reports cough; Denies dyspnea Gastrointestinal Gastrointestinal: Denies abdominal pain, diarrhea, nausea or vomiting Musculoskeletal Musculoskeletal: Reports other Details: Positive swelling bilateral legs Integumentary Reports other Details: Skin redness bilateral legs Neurologic Neurologic: Denies headache(s) Hematologic/Lymphatic Hematologic/Lymphatic: Denies easy bleeding or easy bruising EXAM Physical Exam Const Vital Signs: 10/18/24 23:21 10/19/24 00:11 10/19/24 01:09 Temperature 98.1 F 98.4 F 98.5 F Temperature Source Oral Oral Oral Pulse Rate 81 74 69 Respiratory Rate 18 19 H 18 Blood Pressure 215/85 H 169/74 H 156/82 H Blood Pressure Mean 128 105 106 Pulse Ox 98 95 96 Oxygen Delivery Method Room Air Room Air Room Air 10/19/24 01:34 Temperature 98.1 F Temperature Source Pulse Rate 63 Respiratory Rate 18 Blood Pressure 156/82 H Blood Pressure Mean 106 Pulse Ox 99 Oxygen Delivery Method Positive well nourished, well developed and obese General Appearance ED: well developed Nutritional Appearance: obese HEENT Reports moist mucous membranes HEENT Narrative: Nasal mucosa is hyperemic and boggy Posterior pharynx displays cobblestoning consistent with sinus drainage without airway edema or compromise Eyes PERRL and EOMs intact bilaterally General Eye ED: Negative for scleral icterus Neck supple and no JVD Resp normal respiratory effort and clear to auscultation bilaterally Resp Narrative: No nasal flaring retractions tachypnea or accessory muscle use Cardio regular rate and regular rhythm GI normal to inspection, nondistended, normoactive bowel sounds, non-tender, non-distended and no masses GI Narrative: No voluntary guarding no rigidity or pulsatile mass Auscultation: normoactive bowel sounds Palpation: soft Extremity Extremity Narrative: +2-3 pitting edema of the bilateral lower extremities that is equal and symmetric Negative Homans' sign bilaterally There is erythema that extends along the anterior aspect of the bilateral shins and extends to just above the ankle. There is no asymmetric warmth appreciated. No induration. No lymphangitic streaking. Neuro oriented x3, CN's II-XII intact bilaterally and no sensory deficits noted Sensorium / Orientation: alert Motor Exam: strength 5/5 throughout Psych mental status grossly normal Skin Skin Narrative: Chronic stasis changes of the bilateral lower legs as documented above. No obvious signs of cellulitis or abscess MDM MDM MDM Narrative Medical decision making narrative: Patient arrived to ER hypertensive but otherwise with stable vital. She reported leg swelling and discoloration. She states that it is slightly worse over the last few days than it has been but has been essentially persistent even after taking the Keflex that was prescribed roughly 1 month ago. As she reports symptoms have not really improved since the antibiotic use I have low concern this is cellulitis especially as vitals are stable and it is bilateral. He does not have any risk factors for DVT/PE and there is no calf tenderness therefore I feel no need for an emergent duplex. In order to ensure that the swelling is not related to liver dysfunction third spacing or CHF basic labs were obtained. Patient's white count and neutrophil count are normal and her procalcitonin is normal going against secondary infection. Her BNP is normal going against CHF and liver enzyme normal going against third spacing or cirrhotic changes. Her TSH however is greatly elevated at 39 indicating patient's swelling and chronic stasis changes are most likely related to myxedema. However she does not have change in mental status to suggest myxedema coma and therefore there is no need for admission. Therefore patient is safe for discharge and can follow-up with her family doctor to discuss medication adjustment which should in theory improve her symptoms History & Record Review Discussion w/independent historian: Patient Lab Data Attestation: I reviewed the patient's lab results. Labs: Laboratory Results - last 24 hr 10/19/24 00:10 WBC 9.1 RBC 4.74 Hgb 14.9 Hct 43.4 MCV 91.6 MCH 31.4 MCHC 34.3 RDW Std Deviation 45.8 H RDW Coeff of [place] 13.6 Plt Count 248 MPV 9.6 Immature Gran % (Auto) 0.300 Neut % (Auto) 48.1 Lymph % (Auto) 40.7 [place] % (Auto) 7.2 Eos % (Auto) 3.1 Baso % (Auto) 0.6 Absolute Neuts (auto) 4.4 Absolute Lymphs (auto) 3.69 Nucleated RBC % 0 Sodium 137 Potassium 4.2 Chloride 102 Carbon Dioxide 23.4 Anion Gap 12 BUN 18 Creatinine 0.92 Estim Creat Clear Calc 80.87 Est GFR (MDRD) Non-Af 73 BUN/Creatinine Ratio 19.1 Glucose 109 H Calcium 9.3 Magnesium 2.1 Total Bilirubin 0.17 Direct Bilirubin < 0.08 AST 43 H ALT 49 H Alkaline Phosphatase 80 NT pro BNP II 60 Total Protein 7.3 Albumin 4.1 Globulin 3.2 Procalcitonin 0.07 TSH 38.700 H Radiography Diagnostic Testing: Clinical Impression(s) from Imaging Studies Chest X-Ray 10/18/24 00:20 IMPRESSION: No acute chest findings. Reading Location: [place] [address] Chest x-ray is interpreted by the emergency medicine physician reveals no acute infiltrate pneumothorax or pleural effusion Discharge Plan Triage Chief Complaint: Cellulitis ED Provider: Levy Cha Dx/Rx/DC Orders Clinical Impression: Hypothyroidism, Myxedema, Peripheral edema, Hypertension, Diabetes mellitus type 2, noninsulin dependent Instructions: ED Peripheral Edema, Bilateral, ED Hypothyroidism Prescriptions: No Action levothyroxine [Euthyrox] 125 mcg tablet 125 mcg PO DAILY hydrochlorothiazide 12.5 mg tablet 12.5 mg PO DAILY atorvastatin 10 mg tablet 10 mg PO DAILY Primary Care Provider: Care Physician,No Primary Referrals: Montrell Riley MD [Med Staff - Active Staff] - Care Physician,No Primary [Primary Care Provider] - Activity Restrictions/Additional Instructions: Please follow-up with your family doctor and/or Dr. Riley to discuss further testing regarding your thyroid as the medication you are taking is not sufficient. Your TSH today is greatly elevated at 39. This will be the cause of your leg swelling. If you develop a fever or have any further concerns please return to the ER for repeat evaluation. Print Language: Czech Disposition Disposition: Home, Self Care Discharge Date/Time: 10/19/24 01:38
[2024-10-19 01:34] VITALS: BP 156/82; PULSE 63; RESP 18; TEMP 36.7; O2SAT 99
== END 2024-10-19 01:38 | disposition home or self-care (01) ==
PROVIDERS: Emergency Provider Emergency Medicine; Visit Provider Emergency Medicine
DX: R60.0 Localized edema (principal); E11.9 Type 2 diabetes mellitus without complications; F17.210 Nicotine dependence, cigarettes, uncomplicated; Z79.84 Long term (current) use of oral hypoglycemic drugs; E78.5 Hyperlipidemia, unspecified; E03.9 Hypothyroidism, unspecified; I10 Essential (primary) hypertension; E66.9 Obesity, unspecified; I87.8 Other specified disorders of veins; Z90.710 Acquired absence of both cervix and uterus; R05.9 Cough, unspecified; J02.9 Acute pharyngitis, unspecified; J34.89 Other specified disorders of nose and nasal sinuses
CPT/HCPCS: 71046; 80048; 80076; 83735; 83880; 84145; 84443; 85025; 99283; A4216